=== PATIENT | female | born 1970 | race Caucasian/White ===

== ENCOUNTER → 2018-10-27 08:58 | Outpatient (CLI) | payer OTHER, SELFPAY ==
[2018-10-27 08:29] VITALS: BMI 44.2
[2018-10-27 12:49] LABS: Anion Gap 5 (5-15); BUN 15 mg/dL (7-18); BUN/Creat Ratio 21.2 RATIO (10-20); Calcium,Total 8.6 mg/dL (8.5-10.1); Chloride 105 mmol/L (98-107); Creatinine, Serum 0.71 mg/dL (0.55-1.02); EST Glomerular Filtration Rate 93 mL/min (>60); Est Glom Filt Rate - Afr Amer 112 mL/min (>60); Glucose 95 mg/dL (74-106); Potassium 4.2 mmol/L (3.5-5.1); Sodium Level 140 mmol/L (136-145); Thyroid Stim Hormone (TSH) 0.64 uIU/mL (0.358-3.74)
== END ==
PROVIDERS: PCP Family Medicine; Visit Provider Family Medicine
DX: I10 Essential (primary) hypertension (principal); E03.9 Hypothyroidism, unspecified
CPT/HCPCS: 36415; 80048; 84443

== ENCOUNTER → 2019-05-01 11:46 | Outpatient (CLI) | payer OTHER, SELFPAY ==
[2019-04-27 08:45] VITALS: BMI 44.2
--- NOTE | 2019-05-01 11:49 | RAD_ITS ---
STUDY: X-RAY - LEFT HAND REASON FOR EXAM: Female, 49 years old. Pain in first metacarpal. TECHNIQUE: 3 view(s) of the hand. COMPARISON: None. FINDINGS: Incompletely included in the [id number]-qc-[id number] radiocarpal articulation. Nonvisualized distal radioulnar joint. Limited visualization of the first carpal row otherwise normal visualized carpal bones. 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 Normal second through fifth carpometacarpal joints. Normal metacarpi. Normal metacarpophalangeal joint of the thumb. Normal interphalangeal joint of the thumb. Normal proximal and distal phalanges of the thumb. Normal metacarpophalangeal joints of the second through fifth fingers. Mild narrowing of the distal interphalangeal joints. Normal phalanges of the second through fifth fingers. The soft tissue structures are unremarkable. RAD/Hand Min 3 Views IMPRESSION: Possible early degenerative arthritis as described above. No acute fracture or subluxation Electronically Signed: Janeth Sanchez MD at 5:19 EST , Service support ,
== END ==
PROVIDERS: Family Provider Family Medicine; PCP Family Medicine; Referring Provider Family Medicine; Visit Provider Family Medicine
DX: M25.542 Pain in joints of left hand (principal)
CPT/HCPCS: 73130

== ENCOUNTER → 2019-11-08 09:11 | Outpatient (CLI) | payer OTHER, SELFPAY ==
[2019-11-08 08:45] VITALS: BMI 44.2
[2019-11-08 13:25] LABS: ALB/GLOB Ratio 0.9 RATIO (0.9-2.4); AST(SGOT) 22 U/L (15-37); Alanine Aminotransfer ALT/SGPT 32 U/L (13-56); Albumin, Serum 3.6 g/dL (3.2-5.0); Alkaline Phosphatase 70 U/L (45-117); Anion Gap 8 (5-15); BUN 13 mg/dL (7-18); BUN/Creat Ratio 16.8 RATIO (10-20); Calcium,Total 8.9 mg/dL (8.5-10.1); Chloride 106 mmol/L (98-107); Creatinine, Serum 0.77 mg/dL (0.55-1.02); EST Glomerular Filtration Rate 83 mL/min (>60); Est Glom Filt Rate - Afr Amer 101 mL/min (>60); Globulin 3.8 g/dL (2.2-4.2); Glucose 102 mg/dL (74-106); Potassium 3.9 mmol/L (3.5-5.1); Protein, Total 7.4 g/dL (6.4-8.2); Sodium Level 142 mmol/L (136-145); Thyroid Stim Hormone (TSH) 2.14 uIU/mL (0.358-3.74)
== END ==
PROVIDERS: PCP Family Medicine; Referring Provider Family Medicine; Visit Provider Family Medicine
DX: I10 Essential (primary) hypertension (principal); E03.9 Hypothyroidism, unspecified
CPT/HCPCS: 36415; 80053; 84443

== ENCOUNTER → 2020-11-12 09:05 | Outpatient (CLI) | payer OTHER, SELFPAY ==
[2020-11-12 08:41] VITALS: BMI 47.8
[2020-11-12 12:16] LABS: ALB/GLOB Ratio 0.9 RATIO (0.9-2.4); AST(SGOT) 16 U/L (15-37); Alanine Aminotransfer ALT/SGPT 26 U/L (13-56); Albumin, Serum 3.6 g/dL (3.2-5.0); Alkaline Phosphatase 67 U/L (45-117); Anion Gap 6 (5-15); BUN 16 mg/dL (7-18); BUN/Creat Ratio 19.7 RATIO (10-20); Calcium,Total 9.2 mg/dL (8.5-10.1); Chloride 107 mmol/L (98-107); Creatinine, Serum 0.81 mg/dL (0.55-1.02); EST Glomerular Filtration Rate 78 mL/min (>60); Est Glom Filt Rate - Afr Amer 95 mL/min (>60); Globulin 3.9 g/dL (2.2-4.2); Glucose 99 mg/dL (74-106); Potassium 4.2 mmol/L (3.5-5.1); Protein, Total 7.5 g/dL (6.4-8.2); Sodium Level 141 mmol/L (136-145); Thyroid Stim Hormone (TSH) 8.83 uIU/mL (0.358-3.74)
== END ==
PROVIDERS: PCP Family Medicine; Referring Provider Family Medicine; Visit Provider Family Medicine
DX: I10 Essential (primary) hypertension (principal); E03.9 Hypothyroidism, unspecified
CPT/HCPCS: 36415; 80053; 84443

== ENCOUNTER → 2021-02-14 09:01 | Outpatient (CLI) | payer BC, SELFPAY ==
--- NOTE | 2021-02-14 09:25 | BI_ITS ---
MAMMOGRAPHY - BILATERAL DIAGNOSTIC REASON FOR EXAM: Female, 50 years old. Bilateral breast lungs more prominent on the left side. PERTINENT HISTORY: Non-contributory. TECHNIQUE: Digital bilateral breast lanre (3D mammographic acquisition) in the CC and MLO projections. 2-D mediolateral oblique (MLO) and craniocaudad (CC) views of both breasts were obtained. CAD: Full Field Digital Mammography with Computer Added Detection was performed. COMPARISON: None. Baseline examination. FINDINGS: Breast Composition: The breasts are heterogeneously dense, which may obscure small masses. The palpable abnormality in the right breast corresponds to a 4 cm x 2.8 cm spiculated nodule in the inferior medial aspect of the breast. I also suspect a spiculated density in the retroareolar areolar region of the left breast in the mid section. There is also evidence of a 2.3 cm x 1 cm well-defined nodule in the anterior upper lateral aspect of the right breast. Correlation with ultrasound is recommended. No other significant abnormalities are identified. BI/DIAG MAMM W/CAD, BILAT IMPRESSION: I suspect a dominant spiculated nodule in the inferior medial aspect of the left breast corresponding to the palpable abnormality. I also suspect a central retroareolar spiculated mass in the left breast. Correlation with ultrasound is recommended. 2.3 cm x 1 cm nodule in the anterior upper lateral aspect of the right breast. Correlation with ultrasound is recommended as well. ASSESSMENT CATEGORY: BIRADS Category 0: Incomplete. Need additional imaging evaluation. A letter regarding these results will be sent to the patient by the facility within 30 days. Approximately 10% of breast cancers are not detected by mammography. A normal mammogram should not delay biopsy of a clinically suspicious abnormality. Electronically Signed: Jez Gutierrez MD at 10:26 EDT , Service support ,
--- NOTE | 2021-02-14 09:25 | US_ITS ---
STUDY: ULTRASOUND BREAST - RIGHT REASON FOR EXAM: Female, 50 years old. Abnormal screening mammogram. TECHNIQUE: Axial and longitudinal images of the RIGHT breast were performed with a high resolution ultrasound transducer. # OF IMAGES: [id number] COMPARISON: Comparison is made with prior mammogram done earlier in the day. FINDINGS: RIGHT Breast: The mammographic abnormality corresponds to a 2.5 cm x 2.5 cm x 2 cm heterogeneous solid nodule at the 11 o''clock position of the breast at 4 cm from nipple. Posterior acoustical shadowing is seen. Biopsy is recommended. IMPRESSION: 2.5 cm x 2.5 cm x 2 cm heterogeneous solid nodule at the 11 o''clock position of the breast 4 cm from nipple. Biopsy recommended. ASSESSMENT CATEGORY: BIRADS Category 4: Suspicious - Biopsy Should Be Considered. A letter regarding these results will be sent to the patient by the facility within 30 days. Electronically Signed: Jez Gutierrez MD at 12:29 EDT , Service support , STUDY: ULTRASOUND BREAST - LEFT REASON FOR EXAM: Female, 50 years old. Abnormal screening mammogram. TECHNIQUE: Axial and longitudinal images of the LEFT breast were performed with a high resolution ultrasound transducer. # OF IMAGES: [id number] COMPARISON: Comparison is made with prior mammogram done earlier today. FINDINGS: LEFT Breast: There is a 1.2 cm x 1.4 cm x 1.9 cm irregular hypoechoic nodule with posterior acoustical shadowing at the 6 o''clock position in the breast at 3 cm from nipple. Biopsy recommended. A similar appearing mass is seen at the 8 o''clock position of the breast of 4 cm from nipple measuring 2.2 cm x 3 cm x 1.6 cm. This is at the 8 o''clock position of the breast at 4 cm from the nipple. Posterior acoustical shadowing is seen. Biopsies recommended. Is also evidence of a 1.2 cm x 0.8 cm x 1 cm solid and cystic nodule at the 12 o''clock position breast at 3 cm from nipple. Biopsy recommended. US/Breast Limited Unilateral IMPRESSION: There are 3 suspicious nodules in the breast as described. Biopsy is recommended. ASSESSMENT CATEGORY: BIRADS Category 4: Suspicious - Biopsy Should Be Considered. A letter regarding these results will be sent to the patient by the facility within 30 days. Electronically Signed: Jez Gutierrez MD at 12:31 EDT , Service support ,
== END ==
PROVIDERS: PCP Family Medicine; Referring Provider Obstetrics & Gynecology; Visit Provider Obstetrics & Gynecology
DX: R92.8 Other abnormal and inconclusive findings on diagnostic imaging of breast (principal); N63.11 Unspecified lump in the right breast, upper outer quadrant; N63.25 Unspecified lump in the left breast, overlapping quadrants
CPT/HCPCS: 76642; 77062; 77066; G0279

== ENCOUNTER → 2021-02-19 14:03 | Outpatient (CLI) | payer BC, SELFPAY ==
--- NOTE | 2021-02-19 | BRBX_PTH ---
PATIENT: ABIGAIL FINCH LOC: [facility]#:[id number] AGE/SX: 55/F ROOM: RE02/19/[address]: Dr. Ino Barr MD : 1970 BED: DIS: SPEC #: [id number] RECD: 02/20/21 10:52 STATUS: SINDI MILANLor #: [id number] FANTASMA: 02/19/21 00:[address]: Ino Barr DEPT: SURGICAL PATHOLOGY RECD BY: Kwadwo Santoyo ENTERED: 02/20/21 10:53 SP TYPE: BREAST BX OTHR DR: Dr. Kwame Augustine DO Tissues: A - Left breast, NOS B - Left breast, NOS C - Left breast, NOS D - Right breast, NOS Procedures: Surgery Specimen Level IV HEADER OPERATION: Ultrasound-guided left and right breast biopsy PRE-OP DIAGNOSIS: Abnormal mammogram bilateral TISSUE SUBMITTED: A - Left breast 12 o?clock, B - Left breast 8 o?clock, C - Left breast 6 o?clock, D - Right breast 11 o?clock ISCHEMIC TIME: 1 minute FIXATION TIME: 31.5 hours MICROSCOPIC DIAGNOSIS A. Left breast at 12 o?clock, core biopsy: Collagenized tissue. No evidence of malignancy. B. Left breast at 8 o?clock, core biopsy: Invasive ductal carcinoma with the following characteristics: Maximal length ? 4.5 millimeters Nuclear grade ? 1 See comment. C. Left breast at 6 o?clock, core biopsy: Invasive ductal carcinoma with the following characteristics: Maximal length ? 5.5 millimeters Nuclear grade ? 1 See comment. D. Right breast at 11 o?clock, core biopsy: Focal intraductal hyperplasia without atypia. AM:marialuisa 02/21/2021 COMMENT B & C. Immunohistochemistry ([id number]) supports the above diagnosis. Case has been reviewed in consultation with Dr. Rodriguez who concurs with the above diagnosis. IDC:SJ MICROSCOPIC DESCRIPTION Slides are reviewed. GROSS DESCRIPTION A - Received in fixative is one container labeled with the patient's name and designated 12 o'clock left breast. The specimen consists of multiple irregular and elongated fragments of light arredondo soft tissue that in aggregate measure 1.2 x 0.5 x 0.1 cm. The specimen is totally submitted in one cassette. B - Received in fixative is one container labeled with the patient's name and designated 8 o'clock left breast. The specimen consists of multiple irregular and elongated fragments of light arredondo soft tissue that in aggregate measure 1.5 x 0.6 x 0.1 cm. The specimen is totally submitted in one cassette. C - Received in fixative is one container labeled with the patient's name and designated 6 o'clock left breast. The specimen consists of multiple irregular and elongated fragments of light arredondo soft tissue that in aggregate measure 1 x 0.5 x 0.1 cm. The specimen is totally submitted in one cassette. D - Received in fixative is one container labeled with the patient's name and designated 11 o'clock right breast. The specimen consists of multiple irregular and elongated fragments of light arredondo soft tissue that in aggregate measure 2 x 0.5 x 0.1 cm. The specimen is totally submitted in one cassette. / AM:marialuisa 02/20/21 TC:0 [facility]: [id number] x4 ADDENDUM ADDENDUM ADDENDUM ADDENDUM ADDENDUM ADDENDUM ADDENDUM ADDENDUM ADDENDUM ADDENDUM ADDENDUM ADDENDUM ADDENDUM ADDENDUM ADDENDUM ADDENDUM 03/26/2021 10:16 ADDENDUM 03/26/2021 10:16 ADDENDUM 03/26/2021 10:16 ADDENDUM 03/26/2021 10:16 ADDENDUM 03/26/2021 10:16 This addendum is added to incorporate an outside pathology consultation report. The case was examined at [facility] (#[id number]) and the following diagnosis was rendered. A. Breast, left 12 o?clock, biopsy: Collagenized fibrosis. Negative for malignancy. B. Breast, left 8 o?clock, core biopsy: Invasive mammary carcinoma with micropapillary features, provisional histologic grade 2. C. Breast, left 6 o?clock, core biopsy: Invasive mammary carcinoma with micropapillary features, provisional histologic grade 2. D. Breast, right 11 o?clock, core biopsy: Focal usual ductal hyperplasia Please see complete above mentioned consultation report in EMR
--- NOTE | 2021-02-19 | IMM_PTH ---
PATIENT: ABIGAIL FINCH LOC: U#:[id number] AGE/SX: 55/F ROOM: RE02/19/[address]: Dr. Ino Barr MD : 1970 BED: DIS: SPEC #: [id number] RECD: 02/21/21 14:53 STATUS: SINDI REQ #: [id number] FANTASMA: 02/19/21 00:[address]: Ino Barr DEPT: IMMUNOHISTOCHEMISTRY RECD BY: Alissa Herrera ENTERED: 02/21/21 14:57 SP TYPE: IMMUNO OTHR DR: Dr. Kwame Augustine, Tissues: B - Left breast, NOS C - Left breast, NOS Procedures: CALPONIN-1 (add) CK5-6 (add) CK8 (add) JONES-2 (add) E-CAD (add) HER2 ISAAC (add) KI-67 (add) P53 (add) PA (add) P40 (add) ER (initial) PHYSICIAN & [address] [address] SPECIMEN INFORMATION: Tissue Source: B ? Left breast 8 o?clock, C ? Left breast 6 o?clock Clinical Info: Abnormal mammogram bilateral Specimen Number: [id number] B & C CPT code: 91681 x2, 68798 x14, 17625 x6 METHODOLOGY: Deparaffinized sections of prefer/formalin-fixed tissue or PAP/DQ stained slides are incubated with monoclonal/polyclonal antibodies/oligonucleotide probes. Localization is made via biotin free immunoperoxidase method. Appropriate controls are performed and reacted as expected. Results on target cell population are indicated in the following table: RESULTS: ANTIBODY / CLONE RESULT Block B P53 (DO-7) positive, 4%, dim Ki-67 (30-9) positive, 15% CK8 (84usdlV01) positive CK5-6 (D5 & 1684) negative Calponin-1 (GZ830J) negative P40 (BC28) negative E-Cad (ECH-6) positive JONES-2 (SP21) positive MORPHOMETRIC ANALYSIS ER (clone 6F11) >95%, moderate to strong intensity PA (clone 16/1E2) >95%, moderate to strong intensity Her-2Neu (clone CB11) 0-1+ Block C P53 (DO-7) positive, 8%, dim Ki-67 (30-9) positive, 5% CK8 (96metsR21) positive CK5-6 (D5 & 1684) negative Calponin-1 (HL606R) negative P40 (BC28) positive E-Cad (ECH-6) positive JONES-2 (SP21) positive MORPHOMETRIC ANALYSIS ER (clone 6F11) >95%, moderate to strong intensity PA (clone 16/1E2) >95%, moderate to strong intensity Her-2Neu (clone CB11) 0-1+ The prognostic test for HER2 is performed on formalin-fixed paraffin embedded tissue. A 3+ (positive) staining pattern is defined as intense, homogeneous, complete, circumferential membranous staining in >10% of contiguous tumor cells. A similar weak (2+) staining pattern is interpreted as equivocal. VIRGIL follow-up testing is recommended for all equivocal cases. Positivity/negativity for ER/PA is reported if > or < 1% of the tumor cells are immuno- reactive, respectively. The ASCO/CAP criteria is used for scoring. Reference: Journal of Clinical Oncology, 2013; 31:2628-6992 & 2010; 16:7673-9535. Duration of fixation: 31.5 Hrs; Sample Adequate: Yes. These assays have not been validated on decalcified tissues. Results should be interpreted with caution given the likelihood of false negativity on decalcified specimens. These tests were developed and their performance characteristics determined by [facility]. They may not have been cleared or approved by the U.S. Food and Drug Administration. The FDA has determined that such clearance or approval is not necessary. The above immunohistochemical/dualISH markers are ordered and reviewed by the Pathologist. INTERPRETATION: B. Left breast at 8 o?clock, core biopsy: Invasive ductal carcinoma, nuclear grade 1. Positive for estrogen receptors (favorable prognostic indicator). Positive for progesterone receptors (favorable prognostic indicator). Negative for overexpression of [id number]. C: Left breast at 6 o?clock, core biopsy: Invasive ductal carcinoma, nuclear grade 1. Positive for estrogen receptors (favorable prognostic indicator). Positive for progesterone receptors (favorable prognostic indicator). Negative for overexpression of [id number]. AM:marialuisa 02/25/2021 Case has been reviewed in consultation with Dr. Rodriguez who concurs with the above diagnosis. IDC:SJ
--- NOTE | 2021-02-19 14:08 | US_ITS ---
ULTRASOUND GUIDED CORE BIOPSY REASON FOR EXAM: Female, 50 years old. Right breast mass. PERTINENT HISTORY: 2.5 cm x 2.5 cm x 2 cm heterogeneous solid nodule at 11 o''clock position of the breast at 4 cm from nipple. COMPARISON: Comparison is made with prior sonogram dated 02/14/2021. TECHNIQUE: (All elements of maximal sterile barrier technique followed, including US elements as applicable) Under direct sonographic guidance, the surgeon performed core biopsies of the suspicious lesion at the 11 o''clock position of the breast of 4 cm from nipple. IMPRESSION: Ultrasound guided core biopsy of a mass in the RIGHT breast at the 11 o''clock position of the breast at 4 cm from the nipple without complication. Electronically Signed: Jez Gutierrez MD at 9:11 EDT , Service support , ULTRASOUND GUIDED CORE BIOPSY REASON FOR EXAM: Female, 50 years old. Breast mass PERTINENT HISTORY: 3 suspicious lesions in the left breast. COMPARISON: None. TECHNIQUE: (All elements of maximal sterile barrier technique followed, including US elements as applicable) Under direct sonographic guidance, the surgeon performed an ultrasound-guided core biopsies of the lesions at the 6 o''clock, 8 o''clock and 12 o''clock radiant of the left breast. US/US Breast Biopsy 1st Lesion IMPRESSION: Ultrasound guided core biopsy of a mass in the LEFT breast at the 6 o''clock, 8 o''clock and 12 o''clock radients without complication. Electronically Signed: Jez Gutierrez MD at 9:12 EDT , Service support ,
--- NOTE | 2021-02-19 15:34 | PCM.OPRPT ---
Problems Associated Problem List Diagnoses (1) Masses of both breasts: Report of Operation Date of Procedure: 02/19/21 Pre-Operative Diagnosis: Bilateral breast masses Post-Operative Diagnosis: Same Surgery/Procedure Performed:: Ultrasound-guided core needle biopsies of for breast masses, one on the right and 3 on the left Specimen's removed: Biopsy of multiple breast masses Description of Procedure: Patient was placed on the ultrasound table and the masses of the left breast were localized with ultrasound and marked. An area central to all 3 locations was chosen and prepped and injected with local anesthetic. A small sharron was made with a scalpel. Under ultrasound guidance each of these masses was biopsied separately and each of these masses was marked using titanium clips of different shape. Patient tolerated the procedure well. The incision was closed with a Steri-Strip and bandage. Next in the right breast the mass was localized and medial to this a small area of skin was prepped with ChloraPrep and injected with local anesthetic. A small incision was made. Using a 14-gauge core biopsy needle this mass was biopsied several times and a clip was placed into it. Steri-Strip and bandage was placed over this incision. Patient tolerated this procedure well.
== END ==
PROVIDERS: PCP Family Medicine; Referring Provider Surgery; Visit Provider Surgery
DX: R92.8 Other abnormal and inconclusive findings on diagnostic imaging of breast (principal); N63.10 Unspecified lump in the right breast, unspecified quadrant; N63.20 Unspecified lump in the left breast, unspecified quadrant
CPT/HCPCS: 19083; 19084; 88305; 88341; 88342

== ENCOUNTER → 2021-03-04 08:01 | Outpatient (CLI) | payer BC, SELFPAY ==
--- NOTE | 2021-03-04 08:02 | MRI_ITS ---
STUDY: BILATERAL BREAST MR WITHOUT AND WITH CONTRAST REASON FOR EXAM: Female, 51 years old. Bilateral positive breast biopsies TECHNIQUE: Multi-sequence multi-echo imaging of both breasts was performed with a dedicated breast coil. T1-weighted and T2-weighted images were performed before the administration of contrast. T1-weighted images were also performed after the administration of 24 cc of Dotarem contrast intravenously without complications. COMPARISON: Bilateral mammograms dated 02/14/2021, right and left breast ultrasounds dated 02/14/2021 and bilateral interventional ultrasound-guided biopsy images dated 02/19/2021. FINDINGS: RIGHT BREAST: The breast tissue is heterogeneously dense with minimal background enhancement. Tissue clip marker artifact in area of prior biopsy. There are no abnormal enhancing masses or areas of non-mass enhancement in the right breast. LEFT BREAST: The breast tissue is heterogeneously dense with minimal background enhancement. Extensive area of non-mass enhancement involving the lower inner and lower outer quadrants of the left breast measuring approximately 5.9 cm x 4.2 cm x 4.4 cm. Tissue clip marker artifact noted. Shotty lymph nodes in both axilla, left greater than right are noted. None of these lymph nodes look suspicious by MRI criteria. There is no abnormality in the visualized regions of the chest or liver. MRI/Breast Bilateral W/O and W IMPRESSION: Extensive area of non-mass enhancement involving the lower inner and lower outer quadrants of the left breast as described. Tissue clip marker artifact in the right breast with no enhancing masses. Shotty adenopathy bilaterally with no suspicious axillary lymph nodes. CATEGORY: BIRADS Category 6: Known Biopsy-Proven Malignancy - Appropriate Action Should Be Taken. A letter regarding these results will be sent to the patient by the facility within 30 days. Electronically Signed: Leroy Thomas MD at 9:31 EDT , Service support ,
[2021-03-04 08:35] LABS: CREATININE FINGERSTICK 0.8 mg/dL (0.55-1.02); EGFR FINGERSTICK > 60.0000 mL/min (>60)
== END ==
PROVIDERS: PCP Family Medicine; Referring Provider Surgery; Visit Provider Surgery
DX: N63.10 Unspecified lump in the right breast, unspecified quadrant (principal); N63.20 Unspecified lump in the left breast, unspecified quadrant; Z87.898 Personal history of other specified conditions
CPT/HCPCS: 77049; A9575; A4216; C8908

== ENCOUNTER 2021-07-07 17:23 | Outpatient (CLI) | payer BC, SELFPAY ==
--- NOTE | 2021-07-07 17:30 | CT_ITS ---
HISTORY: Staging, has stage III breast cancer, history of double mastectomy 04/11/21 TECHNIQUE: Helically acquired images were obtained of the chest, abdomen, and pelvis following IV contrast. Sagittal and coronal reformats reviewed. A radiation dose optimization technique was used for this scan. IV Contrast dosage and agent: 100mL Isovue-300 Oral contrast: Yes COMPARISON: None FINDINGS: ----Chest: HEART AND PERICARDIUM: Heart size within normal limits. No significant pericardial effusion. VESSELS: No thoracic aortic aneurysm or dissection. Great vessels are patent. There is no central pulmonary embolism although this study was not performed with the pulmonary embolism protocol. MEDIASTINUM AND MONIQUE: No pathologically enlarged mediastinal or hilar lymph nodes. Esophagus is unremarkable. OTHER SOFT TISSUES: Left axillary surgical clips and scarring compatible with previous lymph node dissection. Bilateral anterior chest wall scarring and surgical clips status post bilateral mastectomy. Low-attenuation loculated fluid collection within deep right anterior chest wall measures 1 cm thickness and 7 cm in length/diameter, with surrounding scarring. LUNGS AND LARGE AIRWAYS: No pulmonary edema, mass or consolidation. Punctate 3 mm subpleural nodule lateral left midlung. No pneumothorax. PLEURA: No pleural effusion or pleural thickening. BONES: Healed fracture right seventh rib. No acute fracture or suspicious osseous lesion. ----Abdomen/Pelvis: LIVER: Mild fatty infiltration of liver with no concerning lesion. GALLBLADDER AND BILIARY TREE: No calcified gallstones. There is no gallbladder distension or wall edema. No intra- or extrahepatic biliary ductal dilation. KIDNEYS AND URETERS: Normal renal size and position. No concerning lesion. No perinephric inflammation or hydronephrosis. ADRENAL GLANDS: Non-enlarged. SPLEEN: Normal size without discrete lesion. PANCREAS: No discrete lesion or peripancreatic inflammation. BOWEL: No evidence of acute appendicitis. No abnormal stomach or bowel distension. No focal inflammatory change observed. LYMPH NODES: No enlarged mesenteric or retroperitoneal lymph nodes. PERITONEUM: No ascites or free air. No other fluid collection. VESSELS: Mild atherosclerotic calcifications. URINARY BLADDER: Unremarkable. REPRODUCTIVE ORGANS: No pelvic masses. ABDOMINAL WALL: Small umbilical hernia containing slightly edematous omental fat. No bowel herniation. BONES: Intact with no suspicious osseous lesion. CT/CT Chest, Abd, Pel w/Contrast IMPRESSION: 1. Status post bilateral mastectomy with chronic appearing loculated fluid collection within right anterior chest wall likely chronic postoperative seroma. 2. No evidence of metastatic disease or residual malignancy. 3. Small umbilical hernia containing edematous omental fat, possibly symptomatic omental incarceration. Correlate clinically. 4. Tiny 3 mm subpleural nodule within left midlung. Too small to characterize at this time. Follow-up as clinically warranted. 5. Hepatic steatosis and other nonurgent findings within body of report. Individualized dose optimization techniques were used for this CT. at 0303 Reported and signed by: Abhinav Ellison MD Electronically Signed: Abhinav Ellison MD at 3:02 EST ,
[2021-07-07 17:51] LABS: CREATININE FINGERSTICK 1.4 mg/dL (0.55-1.02)
== END 2021-07-07 23:59 | disposition short-term general hospital (02) ==
PROVIDERS: PCP Family Medicine; Visit Provider Student in an Organized Health Care Education/Training Program
DX: C50.912 Malignant neoplasm of unspecified site of left female breast (principal)
CPT/HCPCS: 71260; 74177; Q9967

== ENCOUNTER 2021-07-14 07:52 | Outpatient (CLI) | payer BC, SELFPAY ==
--- NOTE | 2021-07-14 07:54 | NM_ITS ---
CLINICAL: 51-year-old female with reported history of carcinoma of the breast. WHOLE BODY 99m Tc MDP RADIONUCLIDE BONE SCINTIGRAPHY COMPARISON: CT of the chest, abdomen and pelvis reports 07/07/2021 FINDINGS: Following the intravenous administration of 22.0 mCi of 99m Tc MDP, whole body bone images reveal: 1. Increased radiopharmaceutical concentration is identified in the mid cervical spine posteriorly on the left, acromioclavicular and sternoclavicular compartments of both shoulders, glenohumeral compartment of the right shoulder, visualized left wrist, both hands, patellofemoral and medial tibial compartments of both knees, right and left midfoot, ankles bilaterally. 2. The remaining skeletal structures are scintigraphically unremarkable with normal-appearing renal images and urinary bladder activity identified. NM/Bone Scan Whole Body IMPRESSION: 1. The increase in radiopharmaceutical concentration expressed in the cervical spine, bilateral shoulders, left wrist, right and left hands, knees bilaterally, right-left midfoot and both ankle articulations is most consistent with degenerative arthritis. 2. There is no definitive scintigraphic evidence of diffuse axial skeletal metastatic disease on the current examination. Electronically Signed: Mariano Yancey DO at 22:01 EST ,
== END 2021-07-14 23:59 | disposition home or self-care (01) ==
LOC: NM 07:53
PROVIDERS: PCP Family Medicine; Referring Provider Student in an Organized Health Care Education/Training Program; Visit Provider Student in an Organized Health Care Education/Training Program
DX: C50.912 Malignant neoplasm of unspecified site of left female breast (principal)
CPT/HCPCS: 78306; A9503

== ENCOUNTER → 2022-03-18 | Outpatient (CLI) | payer BC, SELFPAY ==
[2022-03-18 12:20] LABS: Erythrocyte Sedimentation Rate 26 mm/hr (0-30)
[2022-03-18 12:30] LABS: Rheumatoid Factor < 10.0 IU/mL (<15)
== END | disposition home or self-care (01) ==
LOC: BIMLAB 09:28
PROVIDERS: PCP Family Medicine; Referring Provider Family Medicine; Visit Provider Family Medicine
DX: M25.542 Pain in joints of left hand (principal)
CPT/HCPCS: 36415; 85652; 86431

== ENCOUNTER 2022-04-21 08:35 | Day surgery (SDC) | payer BC, SELFPAY ==
[2022-04-21] VITALS (7 sets, daily range): BP systolic 126–168; BP diastolic 10–102; PULSE 66–75; RESP 16–18; TEMP 36.7–37.4; O2SAT 98–100; BMI 43.0
[2022-04-21] MEDS: Lactated Ringers 1,000 ML 15 ML IV (09:24)
--- NOTE | 2022-04-21 09:41 | PCM.HP.STD ---
[facility] - General General Date of Service: 04/21/22 Chief Complaint: Screening for intestinal cancer. HPI Narrative ABIGAIL FINCH, is a 52 F who presents for screening colonoscopy today. She presents via open access. She has not had a previous colonoscopy. She denies cardiac or pulmonary disease. No diabetes. She denies history of DVT. No change in bowel habits. She has had a bilateral mastectomy. Her mother's had a history of colon polyps. Pertinent clinical findings is a BMI of 43 [facility] Medical History (Updated 04/21/22 @ 09:[address] Brennan Mckeon MD) Anxiety Arthritis Breast cancer History of abnormal mammogram history of novasure Hypertension Hypothyroid Injury of head and neck Marijuana smoker Migraine headache OCD (obsessive compulsive disorder) Sleep disorder Wears glasses Home Medications levothyroxine 150 mcg tablet (Synthroid) 150 mcg PO QDAY #90 tabs 06/17/21 [Rx Last Taken Unknown] Kenalog 40 mg/mL suspension for injection (triamcinolone acetonide) 40 mg intra-articular ONCE #1 mL 03/10/22 [Clinic Last Taken Unknown] gabapentin 300 mg capsule 600 mg PO TID 03/10/22 [History Last Taken Unknown] alprazolam 0.25 mg tablet 0.25 mg PO TID PRN TIC/ OCD 04/17/22 [History Last Taken Unknown] hydrochlorothiazide 25 mg tablet 25 mg PO QAM HTN 04/17/22 [History Last Taken Unknown] lisinopril 40 mg tablet 40 mg PO DAILY HTN 04/17/22 [History Last Taken 04/21/22 05:45] tamoxifen 20 mg tablet 20 mg PO QODAY BREAT CA 04/17/22 [History Last Taken Unknown] Allergy/AdvReac Type Severity Reaction Status Date / Time Penicillins Allergy Severe Hives Verified 04/21/22 09:08 erythromycin base Allergy Unknown Unknown Verified 04/21/22 09:08 latex Allergy Unknown Unknown Verified 04/21/22 09:08 morphine Allergy Unknown Unknown Verified 04/21/22 09:08 adhesive tape Allergy Rash Verified 04/21/22 09:08 Family History (Updated 03/25/22 @ 09:52 by Natasha Amor) Mother Hypertension Diabetes Colon polyps Grandmother Diabetes Surgical History (Updated 04/17/22 @ 10:55 by Danielle Richter) H/O umbilical hernia repair History of bilateral breast biopsy (~02/2021) History of breast surgery History of mastectomy History of oral surgery History of surgery of head History of tubal ligation Social History Smoking Status: Former smoker how long ago did patient quit smokin alcohol intake: current alcohol intake frequency: a few times a month substance use type: does not use what type of physical activity do you participate in: none ROS Constitutional Constitutional: Reports systems reviewed and no addt'l complaints, except as documented Cardiovascular Cardiovascular: Denies chest pain Respiratory/Chest Respiratory/Chest: Denies shortness of breath at rest Gastrointestinal Gastrointestinal: Denies abdominal pain, change in bowel habits, hematochezia or melena Vital Signs Vital Signs Vital Signs: 04/21/22 09:09 04/21/22 09:13 Temperature 98.0 F Temperature Source Temporal Pulse Rate 74 Respiratory Rate 18 Respiratory Pattern Normal Blood Pressure 126/90 H Blood Pressure Mean 102 Blood Pressure Source Monitor Blood Pressure Position Semi-Fowlers Blood Pressure Location Right Arm Pulse Ox 100 Oxygen Delivery Method Room Air Weight Weight: 250 lb 6.4 oz Body Mass Index (BMI) 43.0 Physical Exam Const alert, oriented x3 and no apparent distress General Appearance: cooperative and comfortable Eyes General Eye: normal appearance of both eyes Neck General: normal visual inspection Chest inspection of chest normal Resp Effort and Inspection: able to speak in complete sentences and symmetric chest movement Auscultation: clear to auscultation bilaterally Cardio regular rate and regular rhythm GI soft to palpation, non-tender and non-distended Extremity no calf tenderness Neuro oriented x3 Psych thought process normal Assessment & Plan Assessment/Plan (1) Screening for intestinal cancer: PLAN: Plan to proceed with a screening colonoscopy with possible biopsy or polypectomy as indicated. The patient's not had a previous exam. She has had a history of breast cancer in her mother's had colon polyps. She is aware of the technique, benefit, risk, alternatives. We will proceed as noted. She presents via open access. Brennan Mckeon M.D., F.A.C.S.
--- NOTE | 2022-04-21 09:45 | COLBX_PTH ---
PATIENT: ABIGAIL FINCH LOC: EN U#:[id number] AGE/SX: 52/F ROOM: RE04/21/[address]: Dr. Brennan Mckeon MD : 1970 BED: DIS: 04/21/2022 SPEC #: [id number] RECD: 04/21/22 14:30 STATUS: SINDI MEGHNA #: [id number] FANTASMA: 04/21/22 09:[address]: Brennan Mckeon DEPT: SURGICAL PATHOLOGY RECD BY: Francheska Horn ENTERED: 04/22/22 11:39 SP TYPE: COLON BX LIANG DR: Dr. Kwame Augustine, DO Tissues: A - Sigmoid colon biopsy B - Sigmoid colon biopsy C - Sigmoid colon biopsy Procedures: Surgery Specimen Level IV HEADER OPERATION: Colonoscopy, open access (MAC) PRE-OP DIAGNOSIS: Screening colonoscopy TISSUE SUBMITTED: A. Proximal sigmoid polyp biopsy, B. Mid sigmoid polyp biopsy, C. New mucosal margin mid sigmoid biopsy MICROSCOPIC DIAGNOSIS A. Proximal sigmoid polyp biopsy: Fragments of hyperplastic polyp. B. Mid sigmoid polyp biopsy: Tubular adenoma. C. New mucosal margin mid sigmoid biopsy: Tubular adenoma. /SJ 04/23/22 MICROSCOPIC DESCRIPTION Slides are reviewed. GROSS DESCRIPTION A. Received is one container labeled with the patient name and designated proximal sigmoid?. The specimen consists of multiple irregular fragments of light arredondo soft tissue that in aggregate measure 1.5 x 0.5 x 0.1 cm. The specimen is totally submitted in one cassette. B. Received is one container labeled with the patient name and designated mid sigmoid. a pink-red polyp measuring 1.2 x 1 x 1 cm. The apparent base is inked. The polyp is serially sectioned and submitted entirely in one cassette. C. Received is one container labeled with the patient name and designated new mucosal margin mid sigmoid. a pink-red polyp measuring 0.5 x 0.5 x 0.4 cm. The apparent base is inked. The polyp is bisected and submitted entirely in one cassette. /MICHAEL:jimbo 04/22/2022 TC:1 CPT: 72002 x3
--- NOTE | 2022-04-21 10:17 | OP.CCLET_ITS ---
04/21/2022 Kwame Augustine Re : Colonoscopy procedure for Shira Jeffery Dear Dr. Augustine This procedure was performed on Thursday, April 21, 2022. My impressions and recommendations are as follows: Impressions : - Non-thrombosed external hemorrhoids, non-thrombosed internal hemorrhoids and internal hemorrhoids that prolapse with straining, but spontaneously regress to the resting position (Grade II) found on digital rectal exam. - One 9 mm polyp in the proximal sigmoid colon, removed with a cold biopsy forceps. Resected and retrieved. - One 14 mm polyp in the distal sigmoid colon, removed with a hot snare. Resected and retrieved. The stalk was taken in an additional segment. The additional segment was sent for margins. - Diverticulosis in the sigmoid colon. Recommendations : - Discharge patient to home. - Resume previous diet. - Continue present medications. - Repeat colonoscopy in 5 years for surveillance. This recommendation is pending pathology - Telephone my office for pathology results in 1 week. My findings are described in the full procedure note, which is enclosed. If I can be of further assistance, please feel free to contact me at Doctor phone number(s): Work: . Sincerely, Brnenan Mckeon MD 04/21/2022 10:16:38 AM This report has been signed electronically.
--- NOTE | 2022-04-21 10:17 | OP.COLON_ITS ---
Patient Name: Shira Jeffery Procedure Date: 04/21/2022 9:46 AM Date of : 1970 Age: 52 Procedure: Colonoscopy Indications: Screening for colorectal malignant neoplasm Providers: Brennan Mckeon MD Medicines: See the Anesthesia note for documentation of the administered medications Patient Profile: Last Colonoscopy: none. The patient's first colonoscopy is today. Complications: No immediate complications. Procedure: Pre-Anesthesia Assessment: - Prior to the procedure, a History and Physical was performed, and patient medications and allergies were reviewed. The patient's tolerance of previous anesthesia was also reviewed. The risks and benefits of the procedure and the sedation options and risks were discussed with the patient. All questions were answered, and informed consent was obtained. Prior Anticoagulants: The patient has taken no previous anticoagulant or antiplatelet agents. ASA Grade Assessment: II - A patient with mild systemic disease. After reviewing the risks and benefits, the patient was deemed in satisfactory condition to undergo the procedure. After I obtained informed consent, the scope was passed under direct vision. Throughout the procedure, the patient's blood pressure, pulse, and oxygen saturations were monitored continuously. The adult colonoscope was introduced through the anus and advanced to the cecum, identified by appendiceal orifice and ileocecal valve. The colonoscopy was performed without difficulty. The patient tolerated the procedure well. The quality of the bowel preparation was good. The ileocecal valve and the appendiceal orifice were photographed. Scope In: 9:53:11 AM Scope Withdrawal Time 0 hours 14 minutes 59 seconds Scope Out: 10:11:35 AM Total Procedure Duration Time 0 hours 18 minutes 24 seconds Findings: The digital rectal exam findings include non-thrombosed external hemorrhoids, non-thrombosed internal hemorrhoids and internal hemorrhoids that prolapse with straining, but spontaneously regress to the resting position (Grade II). A 9 mm polyp was found in the proximal sigmoid colon. The polyp was sessile. The polyp was removed with a cold biopsy forceps. Resection and retrieval were complete. A 14 mm polyp was found in the distal sigmoid colon. The polyp was pedunculated. The polyp was removed with a hot snare. Resection and retrieval were complete. A few diverticula were found in the sigmoid colon. Impression: - Non-thrombosed external hemorrhoids, non-thrombosed internal hemorrhoids and internal hemorrhoids that prolapse with straining, but spontaneously regress to the resting position (Grade II) found on digital rectal exam. - One 9 mm polyp in the proximal sigmoid colon, removed with a cold biopsy forceps. Resected and retrieved. - One 14 mm polyp in the distal sigmoid colon, removed with a hot snare. Resected and retrieved. The stalk was taken in an additional segment. The additional segment was sent for margins. - Diverticulosis in the sigmoid colon. Recommendation: - Discharge patient to home. - Resume previous diet. - Continue present medications. - Repeat colonoscopy in 5 years for surveillance. This recommendation is pending pathology - Telephone my office for pathology results in 1 week. Procedure Code(s): --- Professional --- 76982, Colonoscopy, flexible; with removal of tumor(s), polyp(s), or other lesion(s) by snare technique 40851, 59, Colonoscopy, flexible; with biopsy, single or multiple Diagnosis Code(s): --- Professional --- Z12.11, Encounter for screening for malignant neoplasm of colon K64.1, Second degree hemorrhoids K64.4, Residual hemorrhoidal skin tags D12.5, Benign neoplasm of sigmoid colon K57.30, Diverticulosis of large intestine without perforation or abscess without bleeding CPT copyright 2017 [employer]. All rights reserved. The codes documented in this report are preliminary and upon casino accountant review may be revised to meet current compliance requirements. Brennan Mckeon MD 04/21/2022 10:16:38 AM This report has been signed electronically. Number of Addenda: 0 Note Initiated On: 04/21/2022 9:46 AM
== END 2022-04-21 11:37 | disposition home or self-care (01) ==
LOC: EN 08:39 → AC 08:39
PROVIDERS: PCP Family Medicine; Referring Provider Family Medicine; Visit Provider Surgery
PROC: 0DJD8ZZ Inspection of Lower Intestinal Tract, Via Natural or Artificial Opening Endoscopic (ICD-10-PCS; CPT 45378; principal; 2022-04-21 09:40)
DX: Z12.11 Encounter for screening for malignant neoplasm of colon (principal); D12.5 Benign neoplasm of sigmoid colon; K57.30 Diverticulosis of large intestine without perforation or abscess without bleeding; K64.1 Second degree hemorrhoids; K64.4 Residual hemorrhoidal skin tags; I10 Essential (primary) hypertension; E03.9 Hypothyroidism, unspecified; Z79.890 Hormone replacement therapy; Z79.899 Other long term (current) drug therapy; Z87.891 Personal history of nicotine dependence; Z90.13 Acquired absence of bilateral breasts and nipples
CPT/HCPCS: 45380; 45385; 88305; J7120; J2405

== ENCOUNTER → 2023-07-26 | Outpatient (CLI) | payer BC, SELFPAY ==
--- OUTSIDE RECORDS SUMMARY | 2023-07-26 18:45 | XMS RPT_ITS | CCD ---
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 Anastrozole. Patient self discontinued after 3 months and did not start letrozole as recommended. 2) Tamoxifen. Began 04/09/2022. Stopped about a month later. 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 HPI: The patient is a 52-year-old female with a past medical history significant for hypothyroidismand HTN. Was seen by Dr. Momo burks at [facility] 02/18/2021 for complaint of bilateral breast masses. Mammogram previously performed on 02/14/2021 demonstrated that the palpable abnormality in the left breast corresponded to a 4 x 2.8 cm spiculated nodule in the inferior medial aspect of the breast. There was also evidence of a spiculated density in the retroareolar region of the left breast in the m idsection as well as a 2.3 x 1 cm well-defined nodule in the anterior upper lateral aspect of the right breast. Ultrasound performed the same day demonstrated a 2.5 x 2.5 x 2 cm heterogeneous solid nodule at the11 o'clock position in the right breast 4 cm from the nipple. Biopsy was recommended. In the left breast there was a 1.2 x 1.4 x 1.9 cm irregular hypoechoic nodule with posterior acoustical shadowing at the 6 o'clock position in the breast 3 cm from the nipple. Biopsy was recommended.There was a similar-appearing mass at the 8 o'clock position of the breast 4 cm from the nipple measuring 2.2 x 3 x 1.6 cm this was at the 8 o'clock position of the breast 4 cm from the nipple. Posterior acoustic shadowing was also observed. Biopsies were recommended. Finally there was evidence of a 1.2 x 0.8 x 1 cm solid and cystic nodule at the 12 o'clock position in the breast 3 cm from the nipple. Biopsy was recommended. Patient underwent an ultrasound-guided biopsy of a left breast mass at the 6:00, 8:00 and 12:00 positions without complication on 02/19/2021. Pathology: Left breast 12:00 core biopsy revealed collagenized tissue with no evidence of malignancy. Left breast biopsy at 8 o'clock position demonstrated invasive ductal carcinoma with the following characteristics nuclear grade 1. Left breast biopsy 6 o'clock position demonstrated invasive ductal carcinoma with the following characteristics nuclear grade 1. Right breast biopsy 11:00 core biopsy showed focal intraductal hyperplasia without atypia. Both invasive malignancies were ER/MO positive (greater than 95%, moderate to strong intensity for both tumors) both tumors were 0-1+ HER-2 on IHC. MRI Breasts 03/04/2021: The left breast was noted to be heterogeneously dense with minimal background enhancement. There was an extensive area of non-mass enhancement involving the lower inner and lower outer quadrants of the left breast measuring approximately 5.9 x 4.2 x 4.4 cm. Tissue clip marker artifact was noted. There were shotty lymph nodes in both axillae, left greater than right noted. None these lymph nodes were suspicious by MRI criteria. The right breast tissue was heterogeneously dense with minimal background enhancement. Tissue clip marker artifact was observed from prior biopsy. No abnormal enhancingmasses or areas of non-mass enhancement were observed in the right breast. Patient was then referred to [facility]. She underwent a right breast core needle biopsy of the 11 o'clock position 4 cm from the nipple. Tissue demonstrated benign breast parenchyma with dense stromal fibrosis. Genetic testing for MAKAYLA, BRCA1, BRCA2, CDH 1, CHEK 2, PALB 2, PTEN and Tp53 were negative. Patient underwent a left skin sparing mastectomy, left sentinel lymph node biopsy followed by left axillary dissection along with a right prophylactic skin sparing mastectomy and immediate tissue service developer placement, muscle graft harvest x2 and nerve repair x2 on 04/11/2021. Pathology: A. Left sentinel lymph node, excision - Positive for metastatic carcinoma (0/1). B. Breast, left, mastectomy - Invasive moderately differentiated micropapillary carcinoma. Surgicalmargins negative for malignancy. Fibrocystic changes. C. Breast, right, mastectomy - Benign breast tissues with fibrocystic changes and intraductal papilloma. D. Lymph nodes (14), left axilla, excision - Negative for malignancy (0/14). Single tumor. 8.5 cm. Single focus of disease. Margins uninvolved by invasive carcinoma. Closest was the inferior margin at 7 mm. One sentinel lymph node contained an 8 mm metastatic deposit. Extranodal extension was not observed. 14 additional lymph nodes were retrieved and negative. pT3 pN1a Expanders removed 05/05/2021. Had endometrial ablation 2006. Hot flashes about 3 years ago. Prior adjuvant therapy: 1) Anastrozole. Patient self discontinued after 3 months and did not start letrozole as recommended. 2) Tamoxifen. Began 04/09/2022. Stopped about a month later. Current adjuvant therapy: None. Presents for ongoing oncologic management. Interim history: My nurse and medical student were was with me during the entire encounter today. Was started on iron supplement by Dr. Jeffrey. Gabapentin for incisional pain. Occasional pain in central chest. No triggering factors, but may be related to using her arms--running the vacuum or walking the dog. Not sure if it's occurred at rest. No other symptoms to suggest cardiac cause. She still having some numbness of the medial left upper arm. Numbness extends into the left axilla.No symptoms of lymphedema. PMH, medications and allergies personally reviewed by me today. Any changes documented in appropriate section. PHYSICAL EXAM: Vitals: Blood pressure 133/85, pulse 77, temperature 36.4 C (97.5 F), weight 125.2 kg (276 lb), last menstrual period 05/11/2007, SpO2 97 %. Well-appearing and in no acute distress. EYES: Sclerae are anicteric bilaterally. LYMPHATIC: There is no palpable cervical, supraclavicular or axillary adenopathy. RESPIRATORY: Inspiratory breath sounds are of normal intensity in all meyer. No rales, wheezes or rhonchi. CARDIOVASCULAR: Rhythm is regular. BREAST: Nurse chaperoned. Bilateral mastectomy sites are well-healed. There is no firm mass or nodule to suggest chest wall recurrence. No sternum tenderness. Tender lateral upper ribs near axilla. ABDOMEN: The abdomen is nondistended. Extremities: No swelling or edema. SKIN: No jaundice or rash. 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 -Declined adjuvant chemotherapy. -Patient was seen by two radiation oncologists who recommended adjuvant radiation. She declined. -Ki67 was performed on 2 of the core biopsies from the breast tumor, the first from the 8 o'clock position yielded a Ki67 of 15% and the second from the 6:00 core biopsy yielded Ki67 5%. -Tried anastrozole for 3 months--stopped due to side effects--didn't try letrozole as prescribed. -Previously used the [place] predict tool to help illustrate the potential benefit of adjuvant endocrinetherapy. -She had been tolerating tamoxifen well initially the first month but stopped shortly thereafter and unfortunately did not let us know. -She again declines hormonal therapy. -Discussed CTs to evaluate chest pain and as surveillance given high risk situation. PET if indicated based on CT results. Plan: -CT C/A/P with OV following. Portions of this documentation were copied and pasted from previous office visit notes in order to provide a cohesive continuity of the history. The note has been reviewed and edited and updated as necessary. I spent a total of 25 minutes on the date of the service which included preparing to see the patient, [id number] patient care, completing clinical documentation, obtaining and/or reviewing separately obtained history, performing a medically appropriate examination, counseling and educating the pat ient/family/caregiver, ordering medications, tests, or procedures, and communicating results to thepatient/family/caregiver. Agusto De Leon DO [facility] NoteHNO ID: [id number] Author: Leela No PT Service: ? Author Type: Physical Therapist Type: Progress Notes Filed: 12/14/2022 2:19 PM Note Text: 12/14/2022 [facility] PHYSICAL THERAPY DISCONTINUANCE OF CARE Plan of Care Period: Start of Care Date: 10/29/22 Last Visit Date: 10/29/2022 Therapy Program: Patient did not return for follow up care as planned. Please refer to last visit note for interventions provided for this episode of care. Assessment: Unable to formally assess goal achievement. Reason for Discontinuation of Care: Patient has not returned to therapy or scheduled additional follow-up appointments. Leela No [facility]07-04-2023 Evaluation note* Diagnosis Malignant neoplasm of overlapping sites of left breast in female, estrogen receptor positive (HCC)- Primary 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 from neoplasm of breast determined by histopathologic examination (pN1a) (HCC) Nerve pain Neuralgia, neuritis, and radiculitis, unspecified History of bilateral mastectomy Acquired absence of breast and nipple documented in this encounter [facility]06-08-2023 NoteHNO ID: [id number] Author: Agusto De Leon, DO Service: ? 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 HPI: The patient is a 52-year-old female with a past medical history significant for hypothyroidism and HTN. Was seen by Dr. Momo burks at [facility] 02/18/2021 for complaint of bilateral breast masses. Mammogram previously performed on 02/14/2021 demonstrated that the palpable abnormality in the left breast corresponded to a 4 x 2.8 cm spiculated nodule in the inferior medial aspect of the breast. There was also evidence of a spiculated density in the retroareolar region of the left breast in the midsection as well as a 2.3 x 1 cm well-defined nodule in the anterior upper lateral aspect of the right breast. Ultrasound performed the same day demonstrated a 2.5 x 2.5 x 2 cm heterogeneous solid nodule at the 11 o'clock position in the right breast 4 cm from the nipple. Biopsy was recommended. In the left breast there was a 1.2 x 1.4 x 1.9 cm irregular hypoechoic nodule with posterior acoustical shadowing at the 6 o'clock position in the breast 3 cm from the nipple. Biopsy was recommended. There was a similar-appearing mass at the 8 o'clock position of the breast 4 cm from the nipple measuring 2.2 x 3 x 1.6 cm this was at the 8 o'clock position of the breast 4 cm from the nipple. Posterior acoustic shadowing was also observed. Biopsies were recommended. Finally there was evidence of a 1.2 x 0.8 x 1 cm solid and cystic nodule at the 12 o'clock position in the breast 3 cm from the nipple. Biopsy was recommended. Patient underwent an ultrasound-guided biopsy of a left breast mass at the 6:00, 8:00 and 12:00 positions without complication on 02/19/2021. Pathology: Left breast 12:00 core biopsy revealed collagenized tissue with no evidence of malignancy. Left breast biopsy at 8 o'clock position demonstrated invasive ductal carcinoma with the following characteristics nuclear grade 1. Left breast biopsy 6 o'clock position demonstrated invasive ductal carcinoma with the following characteristics nuclear grade 1. Right breast biopsy 11:00 core biopsy showed focal intraductal hyperplasia without atypia. Both invasive malignancies were ER/MO positive (greater than 95%, moderate to strong intensity for both tumors) both tumors were 0-1+ HER-2 on IHC. MRI Breasts 03/04/2021: The left breast was noted to be heterogeneously dense with minimal background enhancement. There was an extensive area of non-mass enhancement involving the lower inner and lower outer quadrants of the left breast measuring approximately 5.9 x 4.2 x 4.4 cm. Tissue clip marker artifact was noted. There were shotty lymph nodes in both axillae, left greater than right noted. None these lymph nodes were suspicious by MRI criteria. The right breast tissue was heterogeneously dense with minimal background enhancement. Tissue clip marker artifact was observed from prior biopsy. No abnormal enhancing masses or areas of non-mass enhancement were observed in the right breast. Patient was then referred to [facility]. She underwent a right breast core needle biopsy of the 11 o'clock position 4 cm from the nipple. Tissue demonstrated benign breast parenchyma with dense stromal fibrosis. Genetic testing for MAKAYLA, BRCA1, BRCA2, CDH 1, CHEK 2, PALB 2, PTEN and Tp53 were negative. Patient underwent a left skin sparing mastectomy, left sentinel lymph node biopsy followed by left axillary dissection along with a right prophylactic skin sparing mastectomy and immediate tissue service developer placement, muscle graft harvest x2 and nerve repair x2 on 04/11/2021. Pathology: A. Left sentinel lymph node, excision - Positive for metastatic carcinoma (0/1). B. Breast, left, mastectomy - Invasive moderately differentiated micropapillary carcinoma. Surgical margins negative for malignancy. Fibrocystic changes. C. Breast, right, mastectomy - Benign breast tissues with fibrocystic changes and intraductal papilloma. D. Lymph nodes (14), left axilla, excision - Negative for malignancy (0/14). Single tumor. 8.5 cm. Single focus of disease. Margins uninvolved by invasive carcinoma. Closest was the inferior margin at 7 mm. One sentinel lymph node contained an 8 mm metastatic deposit. Extranodal extension was not observed. 14 additional lymph nodes were retrieved and negative. pT3 pN1a Expanders removed 05/05/2021. Had endometrial ablation 2006. Hot flashes about 3 years ago. Prior adjuvant therapy: 1) Anastrozole. Patient self discontinued after 3 months and did not start letrozole as recommended. 2) Tamoxifen. Began 04/09/2022. Stopped about a month later. Current adjuvant therapy: None. (more content not included)...[facility]06-08-2023 NoteHNO ID: [id number] Author: Hayde Azul LPN Service: ? Author Type: LICENSED NURSE Type: Progress Notes Filed: 11/13/2022 6:17 PM Note Text: Est. Pt. Discuss recent labs, 6 month f/u Only took the Tamoxifen for 1 month, couldn't stand the side effects. 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 HPI: The patient is a 52-year-old female with a past medical history significant for hypothyroidismand HTN. Was seen by Dr. Momo burks at [facility] 02/18/2021 for complaint of bilateral breast masses. Mammogram previously performed on 02/14/2021 demonstrated that the palpable abnormality in the left breast corresponded to a 4 x 2.8 cm spiculated nodule in the inferior medial aspect of the breast. There was also evidence of a spiculated density in the retroareolar region of the left breast in the m idsection as well as a 2.3 x 1 cm well-defined nodule in the anterior upper lateral aspect of the right breast. Ultrasound performed the same day demonstrated a 2.5 x 2.5 x 2 cm heterogeneous solid nodule at the11 o'clock position in the right breast 4 cm from the nipple. Biopsy was recommended. In the left breast there was a 1.2 x 1.4 x 1.9 cm irregular hypoechoic nodule with posterior acoustical shadowing at the 6 o'clock position in the breast 3 cm from the nipple. Biopsy was recommended.There was a similar-appearing mass at the 8 o'clock position of the breast 4 cm from the nipple measuring 2.2 x 3 x 1.6 cm this was at the 8 o'clock position of the breast 4 cm from the nipple. Posterior acoustic shadowing was also observed. Biopsies were recommended. Finally there was evidence of a 1.2 x 0.8 x 1 cm solid and cystic nodule at the 12 o'clock position in the breast 3 cm from the nipple. Biopsy was recommended. Patient underwent an ultrasound-guided biopsy of a left breast mass at the 6:00, 8:00 and 12:00 positions without complication on 02/19/2021. Pathology: Left breast 12:00 core biopsy revealed collagenized tissue with no evidence of malignancy. Left breast biopsy at 8 o'clock position demonstrated invasive ductal carcinoma with the following characteristics nuclear grade 1. Left breast biopsy 6 o'clock position demonstrated invasive ductal carcinoma with the following characteristics nuclear grade 1. Right breast biopsy 11:00 core biopsy showed focal intraductal hyperplasia without atypia. Both invasive malignancies were ER/MO positive (greater than 95%, moderate to strong intensity for both tumors) both tumors were 0-1+ HER-2 on IHC. MRI Breasts 03/04/2021: The left breast was noted to be heterogeneously dense with minimal background enhancement. There was an extensive area of non-mass enhancement involving the lower inner and lower outer quadrants of the left breast measuring approximately 5.9 x 4.2 x 4.4 cm. Tissue clip marker artifact was noted. There were shotty lymph nodes in both axillae, left greater than right noted. None these lymph nodes were suspicious by MRI criteria. The right breast tissue was heterogeneously dense with minimal background enhancement. Tissue clip marker artifact was observed from prior biopsy. No abnormal enhancingmasses or areas of non-mass enhancement were observed in the right breast. Patient was then referred to [facility]. She underwent a right breast core needle biopsy of the 11 o'clock position 4 cm from the nipple. Tissue demonstrated benign breast parenchyma with dense stromal fibrosis. Genetic testing for MAKAYLA, BRCA1, BRCA2, CDH 1, CHEK 2, PALB 2, PTEN and Tp53 were negative. Patient underwent a left skin sparing mastectomy, left sentinel lymph node biopsy followed by left axillary dissection along with a right prophylactic skin sparing mastectomy and immediate tissue service developer placement, muscle graft harvest x2 and nerve repair x2 on 04/11/2021. Pathology: A. Left sentinel lymph node, excision - Positive for metastatic carcinoma (0/1). B. Breast, left, mastectomy - Invasive moderately differentiated micropapillary carcinoma. Surgicalmargins negative for malignancy. Fibrocystic changes. C. Breast, right, mastectomy - Benign breast tissues with fibrocystic changes and intraductal papilloma. D. Lymph nodes (14), left axilla, excision - Negative for malignancy (0/14). Single tumor. 8.5 cm. Single focus of disease. Margins uninvolved by invasive carcinoma. Closest was the inferior margin at 7 mm. One sentinel lymph node contained an 8 mm metastatic deposit. Extranodal extension was not observed. 14 additional lymph nodes were retrieved and negative. pT3 pN1a Expanders removed 05/05/2021. Had endometrial ablation 2006. Hot flashes about 3 years ago. Prior adjuvant therapy: 1) Anastrozole. Patient self discontinued after 3 months and did not start letrozole as recommended. 2) Tamoxifen. Began 04/09/2022. Stopped about a month later. Current adjuvant therapy: None. Presents for ongoing oncologic management. Interim history: When last year, she endorsed that she was tolerating tamoxifen very well. She discontinued it very shortly thereafter but did not let us know. My nurse was with me during the entire encounter today. The patient seemed very flustered and related that she feels like she is still going through menopausal symptoms consisting of hot flashes and mood swings. She denied any vaginal bleeding or spotting. Was seen at her surgeon's office at [facility] on 10/21. She still having some numbness of the medial left upper arm. Numbness extends into the left axilla.No symptoms of lymphedema. PMH, medications and allergies personally reviewed by me today. Any changes documented in appropriate section. PHYSICAL EXAM: Vitals: Blood pressure 142/86, pulse 82, temperature 36.6 C (97.8 F), weight 128.4 kg (283 lb), last menstrual period 05/11/2007. Well-appearing and in no acute distress. EYES: Sclerae are anicteric bilaterally. LYMPHATIC: There is no palpable cervical, supraclavicular or axillary adenopathy. RESPIRATORY: Inspiratory breath sounds are of normal intensity in all meyer. No rales, wheezes or rhonchi. CARDIOVASCULAR: Rhythm is regular. BREAST: Nurse chaperoned. Bilateral mastectomy sites are well-healed. There is no firm mass or nodule to suggest chest wall recurrence. ABDOMEN: The abdomen is nondistended. Extremities: No swelling or edema. SKIN: No jaundice or rash. 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 -Declined adjuvant chemotherapy. -Patient was seen by two radiation oncologists who recommended adjuvant radiation. She declined. -Ki67 was performed on 2 of the core biopsies from the breast tumor, the first from the 8 o'clock position yielded a Ki67 of 15% and the second from the 6:00 core biopsy yielded Ki67 5%. -Tried anastrozole for 3 months--stopped due to side effects--didn't try letrozole as prescribed. -Previously used the [place] predict tool to help illustrate the potential benefit of adjuvant endocrinetherapy. -She had been tolerating tamoxifen well initially the first month but stopped shortly thereafter and unfortunately did not let us know. -She is having hot flashes and mood swings and feels as if she is going through menopause. Had hot flashes about 3 years prior. -She understands she is at high risk for recurrence without adjuvant endocrine therapy but she seems to be under a lot of stress today and I recommended evaluation by a composite mechanic who is facile with women's health issues. She was very appreciative of this recommendation. Hopefully thereafter I can convince her to restart endocrine therapy. Plan: -Referral to Dr. Jeffrey at [facility]. -Office visit in 3 months. Portions of this documentation were copied and pasted from previous office visit notes in order to provide a cohesive continuity of the history. The note has been reviewed and edited and updated as necessary. I spent a total of 30 minutes on the date of the service which included preparing to see the patient, [id number] patient care, completing clinical documentation, obtaining and/or reviewing separately obtained history, performing a medically appropriate examination, and counseling and educating the patient/family/caregiver. Agusto De Leon DO * Hayde Azul LPN - 11/12/2022 4:03 PM EDT Est. Pt. Discuss recent labs, 6 month f/u Only took the Tamoxifen for 1 month, couldn't stand the side effects. Hayde Azul LPN documented in this [facility] NoteHNO ID: [id number] Author: Leela No PT Service: ? Author Type: Physical Therapist Type: Progress Notes Filed: 10/29/2022 2:08 PM Note Text: Episode Visit Count: 1 Therapist That Will Accept/Oversee The Plan Of Care: Oneal Start of Care Date: 10/29/22 Onset Date: 05/29/21 Patient Identified by Name and Date of : Yes REHABILITATION AND SPORTS THERAPY PHYSICAL THERAPY EVALUATION PLAN OF CARE: Assessment: Shira Bautista presents with chief complaint of L arm and chest wall numbness and pain that interferes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 left breast in the midsection as well as a 2.3 x 1 cm well-defined nodule in the anterior upper lateral aspect of the right breast. Ultrasound performed the same day demonstrated a 2.5 x 2.5 x 2 cm heterogeneous solid nodule at the 11 o'clock position in the right breast 4 cm from the nipple. Biopsy was recommended. In the left breast there was a 1.2 x 1.4 x 1.9 cm irregular hypoechoic nodule with posterior acoustical shadowing at the 6 o'clock position in the breast 3 cm from the nipple. Biopsy was recommended. There was a similar-appearing mass at the 8 o'clock position of the breast 4 cm from the nipple measuring 2.2 x 3 x 1.6 cm this was at the 8 o'clock position of the breast 4 cm from the nipple. Posterior acoustic shadowing was also observed. Biopsies were recommended. Finally there was evidence of a 1.2 x 0.8 x 1 cm solid and cystic nodule at the 12 o'clock position in the breast 3 cm from the nipple. Biopsy was recommended. Patient underwent an ultrasound-guided biopsy of a left breast mass at the 6:00, 8:00 and 12:00 positions without complication on 02/19/2021. Pathology: Left breast 12:00 core biopsy revealed collagenized tissue with no evidence of malignancy. Left breast biopsy at 8 o'clock position demonstrated invasive ductal carcinoma with the following characteristics nuclear grade 1. Left breast biopsy 6 o'clock position demonstrated invasive ductal carcinoma with the following characteristics nuclear grade 1. Right breast biopsy 11:00 core biopsy showed focal intraductal hyperplasia without atypia. Both invasive malignancies were ER/MO positive (greater than 95%, moderate to strong intensity for both tumors) both tumors were 0-1+ HER-2 on IHC. MRI Breasts 03/04/2021: The left breast was noted to be heterogeneously dense with minimal background enhancement. There was an extensive area of non-mass enhancement involving the lower inner and lower outer quadrants of the left breast measuring approximately 5.9 x 4.2 x 4.4 cm. Tissue clip marker artifact was noted. There were shotty lymph nodes in both axillae, left greater than right noted. None these lymph nodes were suspicious by MRI criteria. The right breast tissue was heterogeneously dense with minimal background enhancement. Tissue clip marker artifact was observed from prior biopsy. No abnormal enhancing masses or areas of non-mass enhancement were observed in the right breast. Patient was then referred to [facility]. She underwent a right breast core needle biopsy of the 11 o'clock position 4 cm from the nipple. Tissue demonstrated benign breast parenchyma with dense stromal fibrosis. Genetic testing for MAKAYLA, BRCA1, BRCA2, CDH 1, CHEK 2, PALB 2, PTEN and Tp53 were negative. Patient underwent a left skin sparing mastectomy, left sentinel lymph node biopsy followed by left axillary dissection along with a right prophylactic skin sparing mastectomy and immediate tissue service developer placement, muscle graft harvest x2 and nerve repair x2 on 04/11/2021. Pathology: A. Left sentinel lymph node, excision - Positive for metastatic carcinoma (0/1). B. Breast, left, mastectomy - Invasive moderately differentiated micropapillary carcinoma. Surgical margins negative for malignancy. Fibrocystic changes. C. Breast, right, mastectomy - Benign breast tissues with fibrocystic changes and intraductal papilloma. D. Lymph nodes (14), left axilla, excision - Negative for malignancy (0/14). Single tumor. 8.5 cm. Single focus of disease. Margins uninvolved by invasive carcinoma. Closest was the inferior margin at 7 mm. One sentinel lymph node contained an 8 mm metastatic deposit. Extranodal extension was not observed. 14 additional lymph nodes were retrieved and negative. pT3 pN1a Expanders removed 05/05/2021. Had endometrial ablation 2006. Hot flashes about 3 years ago. Prior adjuvant therapy: 1) Anastrozole. Patient self discontinued after 3 months and did not start letrozole as recommended. Current adjuvant therapy: 1) Tamoxifen. Began 04/09/2022. 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 HPI: The patient is a 52-year-old female with a past medical history significant for hypothyroidismand HTN. Was seen by Dr. Momo burks at [facility] 02/18/2021 for complaint of bilateral breast masses. Mammogram previously performed on 02/14/2021 demonstrated that the palpable abnormality in the left breast corresponded to a 4 x 2.8 cm spiculated nodule in the inferior medial aspect of the breast. There was also evidence of a spiculated density in the retroareolar region of the left breast in the m idsection as well as a 2.3 x 1 cm well-defined nodule in the anterior upper lateral aspect of the right breast. Ultrasound performed the same day demonstrated a 2.5 x 2.5 x 2 cm heterogeneous solid nodule at the11 o'clock position in the right breast 4 cm from the nipple. Biopsy was recommended. In the left breast there was a 1.2 x 1.4 x 1.9 cm irregular hypoechoic nodule with posterior acoustical shadowing at the 6 o'clock position in the breast 3 cm from the nipple. Biopsy was recommended.There was a similar-appearing mass at the 8 o'clock position of the breast 4 cm from the nipple measuring 2.2 x 3 x 1.6 cm this was at the 8 o'clock position of the breast 4 cm from the nipple. Posterior acoustic shadowing was also observed. Biopsies were recommended. Finally there was evidence of a 1.2 x 0.8 x 1 cm solid and cystic nodule at the 12 o'clock position in the breast 3 cm from the nipple. Biopsy was recommended. Patient underwent an ultrasound-guided biopsy of a left breast mass at the 6:00, 8:00 and 12:00 positions without complication on 02/19/2021. Pathology: Left breast 12:00 core biopsy revealed collagenized tissue with no evidence of malignancy. Left breast biopsy at 8 o'clock position demonstrated invasive ductal carcinoma with the following characteristics nuclear grade 1. Left breast biopsy 6 o'clock position demonstrated invasive ductal carcinoma with the following characteristics nuclear grade 1. Right breast biopsy 11:00 core biopsy showed focal intraductal hyperplasia without atypia. Both invasive malignancies were ER/MO positive (greater than 95%, moderate to strong intensity for both tumors) both tumors were 0-1+ HER-2 on IHC. MRI Breasts 03/04/2021: The left breast was noted to be heterogeneously dense with minimal background enhancement. There was an extensive area of non-mass enhancement involving the lower inner and lower outer quadrants of the left breast measuring approximately 5.9 x 4.2 x 4.4 cm. Tissue clip marker artifact was noted. There were shotty lymph nodes in both axillae, left greater than right noted. None these lymph nodes were suspicious by MRI criteria. The right breast tissue was heterogeneously dense with minimal background enhancement. Tissue clip marker artifact was observed from prior biopsy. No abnormal enhancingmasses or areas of non-mass enhancement were observed in the right breast. Patient was then referred to [facility]. She underwent a right breast core needle biopsy of the 11 o'clock position 4 cm from the nipple. Tissue demonstrated benign breast parenchyma with dense stromal fibrosis. Genetic testing for MAKAYLA, BRCA1, BRCA2, CDH 1, CHEK 2, PALB 2, PTEN and Tp53 were negative. Patient underwent a left skin sparing mastectomy, left sentinel lymph node biopsy followed by left axillary dissection along with a right prophylactic skin sparing mastectomy and immediate tissue service developer placement, muscle graft harvest x2 and nerve repair x2 on 04/11/2021. Pathology: A. Left sentinel lymph node, excision - Positive for metastatic carcinoma (0/1). B. Breast, left, mastectomy - Invasive moderately differentiated micropapillary carcinoma. Surgicalmargins negative for malignancy. Fibrocystic changes. C. Breast, right, mastectomy - Benign breast tissues with fibrocystic changes and intraductal papilloma. D. Lymph nodes (14), left axilla, excision - Negative for malignancy (0/14). Single tumor. 8.5 cm. Single focus of disease. Margins uninvolved by invasive carcinoma. Closest was the inferior margin at 7 mm. One sentinel lymph node contained an 8 mm metastatic deposit. Extranodal extension was not observed. 14 additional lymph nodes were retrieved and negative. pT3 pN1a Expanders removed 05/05/2021. Had endometrial ablation 2006. Hot flashes about 3 years ago. Prior adjuvant therapy: 1) Anastrozole. Patient self discontinued after 3 months and did not start letrozole as recommended. Current adjuvant therapy: 1) Tamoxifen. Began 04/09/2022. Presents for ongoing oncologic management. Interim history: Tolerating tamoxifen much better. Still having some hot flashes though not as frequent or as intense as when she was on anastrozole. No leg pain or swelling. No shortness of breath. Mood doing well. PMH, medications and allergies personally reviewed by me today. Any changes documented in appropriate section. PHYSICAL EXAM: Vitals: Blood pressure 153/93, pulse 74, temperature 37.2 C (99 F), weight 117.9 kg (260 lb), last menstrual period 05/11/2007, SpO2 96 %. Well-appearing and in no acute distress. EYES: Sclerae are anicteric bilaterally. LYMPHATIC: There is no palpable cervical, supraclavicular or axillary adenopathy. RESPIRATORY: Inspiratory breath sounds are of normal intensity in all meyer. No rales, wheezes or rhonchi. CARDIOVASCULAR: Rhythm is regular. BREAST: Deferred today. ABDOMEN: The abdomen is nondistended. Extremities: No swelling or edema. SKIN: No jaundice or rash. 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 -Declined adjuvant chemotherapy. -Patient was seen by two radiation oncologists who recommended adjuvant radiation. She declined. -Ki67 was performed on 2 of the core biopsies from the breast tumor, the first from the 8 o'clock position yielded a Ki67 of 15% and the second from the 6:00 core biopsy yielded Ki67 5%. -Tried anastrozole for 3 months--stopped due to side effects--didn't try letrozole as prescribed. -Previously used the [place] predict tool to help illustrate the potential benefit of adjuvant endocrinetherapy. -Now tolerating tamoxifen overall very well with the exception of hot flashes. I educated her on the signs/symptoms of DVT/PE and advised her to get emergency care should she develop those symptoms. -I personally reviewed the CT images of the chest with those done at [facility] on 07/07/2021. The 3 mm left mid lung nodule located in the periphery was present on that exam. Additionally the small 6 mm benign-appearing lymph node in the axilla was present and measured the same at that time as well. Reviewed all this in detail with her. LEONIDES. -Home diastolic blood pressure is typically between 85 and 90 mmHg. Plan: -Continue tamoxifen. -OV in 6 months. -Reasonable to repeat CT imaging in about a year. -Also advised her to contact her PCP about management of hypertension. She expressed an understanding and agreement to do so. Portions of this documentation were copied and pasted from previous office visit notes in order to provide a cohesive continuity of the history. The note has been reviewed and edited and updated as necessary. I spent 30 minutes in the visit, with more than 50% of the total [id number] time of the visit in reviewing test results, plan of care and coordination of care Agusto De Leon DO documented [facility]* Diagnosis Malignant neoplasm of overlapping sites of left breast in female, estrogen receptor positive (HCC)- Primary 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 from neoplasm of breast determined by histopathologic examination (pN1a) (HCC) documented in this encounter [facility] NoteHNO ID: [id number] Author: Leandra Reef Kulkarni, RT(R) Service: ? Author Type: Indirect Sales Representative Type: Progress Notes Filed: 04/23/2022 3:59 PM Note Text: Radiology Service Progress Note DATE OF SERVICE: April 23, 2022 TIME: 3:58 PM PATIENT IDENTITY VERIFICATION COMPLETED USING TWO (2) STANDARD IDENTIFIERS: Name and Date of confirmed by patient verbally. FALL SCREENING: Has the patient had 2 falls in the last year or 1 fall with injury or currently using an Ambulatory Assistive Device (Walker, Cane, Wheelchair, Crutches, etc.)? No PATIENT GENDER DATA: Female. status: : No status: NO. PATIENT RELEVANT IMPLANT DATA REVIEWED: Yes ALLERGIES: Reviewed and unchanged CONTRAST ALLERGY: NO. EXAM: CT -CONTRAST INDUCED NEPHROPATHY RISK FACTORS: Not applicable CREATININE: Creatinine Date Value Ref Range Status 04/08/2022 0.71 0.58 - 0.96 mg/dL Final 03/19/2021 0.77 0.58 - 0.96 mg/dL Final Estimated Glomerular Filtration Rate Date Value Ref Range Status 04/08/2022 101 >=60 mL/min/1.73m? Final Comment: Estimated Glomerular Filtration Rate (eGFR) is calculated using the 2020 CKD-EPI creatinine equation. This equation utilizes serum creatinine, sex, and age as parameters. The creatinine assay has traceable calibration to isotope dilution-mass spectrometry. Refer to KDIGO guidelines for clinical interpretation. In patients with unstable renal function, e.g. those with acute kidney injury, the eGFR may not accurately reflect actual GFR. eGFR- Date Value Ref Range Status 03/19/2021 >60 Final P.O.C.T. RESULTS: POC done: Yes, See Lab Tab April 23, 2022 TREATMENT: N/A PERIPHERAL IV DATA: Ambulatory: A peripheral IV was started in the Right forearm with a Angio cath: 22 gauge. RADIOLOGY DEPARTMENT: CT; Exam(s) Completed: Chest Abdomen Pelvis SIGNATURE: RT Mable(R) PATIENT NAME: Shira Bautista DATE: April 23, 2022 TIME: 3:58 [facility]11-02-2022 NoteHNO ID: [id number] Author: Agusto De Leon, DO Service: ? 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 HPI: The patient is a 52-year-old female with a past medical history significant for hypothyroidism and HTN. Was seen by Dr. Momo burks at [facility] 02/18/2021 for complaint of bilateral breast masses. Mammogram previously performed on 02/14/2021 demonstrated that the palpable abnormality in the left breast corresponded to a 4 x 2.8 cm spiculated nodule in the inferior medial aspect of the breast. There was also evidence of a spiculated density in the retroareolar region of the left breast in the midsection as well as a 2.3 x 1 cm well-defined nodule in the anterior upper lateral aspect of the right breast. Ultrasound performed the same day demonstrated a 2.5 x 2.5 x 2 cm heterogeneous solid nodule at the 11 o'clock position in the right breast 4 cm from the nipple. Biopsy was recommended. In the left breast there was a 1.2 x 1.4 x 1.9 cm irregular hypoechoic nodule with posterior acoustical shadowing at the 6 o'clock position in the breast 3 cm from the nipple. Biopsy was recommended. There was a similar-appearing mass at the 8 o'clock position of the breast 4 cm from the nipple measuring 2.2 x 3 x 1.6 cm this was at the 8 o'clock position of the breast 4 cm from the nipple. Posterior acoustic shadowing was also observed. Biopsies were recommended. Finally there was evidence of a 1.2 x 0.8 x 1 cm solid and cystic nodule at the 12 o'clock position in the breast 3 cm from the nipple. Biopsy was recommended. Patient underwent an ultrasound-guided biopsy of a left breast mass at the 6:00, 8:00 and 12:00 positions without complication on 02/19/2021. Pathology: Left breast 12:00 core biopsy revealed collagenized tissue with no evidence of malignancy. Left breast biopsy at 8 o'clock position demonstrated invasive ductal carcinoma with the following characteristics nuclear grade 1. Left breast biopsy 6 o'clock position demonstrated invasive ductal carcinoma with the following characteristics nuclear grade 1. Right breast biopsy 11:00 core biopsy showed focal intraductal hyperplasia without atypia. Both invasive malignancies were ER/MO positive (greater than 95%, moderate to strong intensity for both tumors) both tumors were 0-1+ HER-2 on IHC. MRI Breasts 03/04/2021: The left breast was noted to be heterogeneously dense with minimal background enhancement. There was an extensive area of non-mass enhancement involving the lower inner and lower outer quadrants of the left breast measuring approximately 5.9 x 4.2 x 4.4 cm. Tissue clip marker artifact was noted. There were shotty lymph nodes in both axillae, left greater than right noted. None these lymph nodes were suspicious by MRI criteria. The right breast tissue was heterogeneously dense with minimal background enhancement. Tissue clip marker artifact was observed from prior biopsy. No abnormal enhancing masses or areas of non-mass enhancement were observed in the right breast. Patient was then referred to [facility]. She underwent a right breast core needle biopsy of the 11 o'clock position 4 cm from the nipple. Tissue demonstrated benign breast parenchyma with dense stromal fibrosis. Genetic testing for MAKAYLA, BRCA1, BRCA2, CDH 1, CHEK 2, PALB 2, PTEN and Tp53 were negative. Patient underwent a left skin sparing mastectomy, left sentinel lymph node biopsy followed by left axillary dissection along with a right prophylactic skin sparing mastectomy and immediate tissue service developer placement, muscle graft harvest x2 and nerve repair x2 on 04/11/2021. Pathology: A. Left sentinel lymph node, excision - Positive for metastatic carcinoma (0/1). B. Breast, left, mastectomy - Invasive moderately differentiated micropapillary carcinoma. Surgical margins negative for malignancy. Fibrocystic changes. C. Breast, right, mastectomy - Benign breast tissues with fibrocystic changes and intraductal papilloma. D. Lymph nodes (14), left axilla, excision - Negative for malignancy (0/14). Single tumor. 8.5 cm. Single focus of disease. Margins uninvolved by invasive carcinoma. Closest was the inferior margin at 7 mm. One sentinel lymph node contained an 8 mm metastatic deposit. Extranodal extension was not observed. 14 additional lymph nodes were retrieved and negative. pT3 pN1a Expanders removed 05/05/2021. Had endometrial ablation 2006. Hot flashes about 3 years ago. Presents for ongoing oncologic management. Interim history: She took anastrozole for approximately 3 months then stopped due to side effects. She did not start letrozole. 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 HPI: The patient is a 52-year-old female with a past medical history significant for hypothyroidismand HTN. Was seen by Dr. Momo burks at [facility] 02/18/2021 for complaint of bilateral breast masses. Mammogram previously performed on 02/14/2021 demonstrated that the palpable abnormality in the left breast corresponded to a 4 x 2.8 cm spiculated nodule in the inferior medial aspect of the breast. There was also evidence of a spiculated density in the retroareolar region of the left breast in the m idsection as well as a 2.3 x 1 cm well-defined nodule in the anterior upper lateral aspect of the right breast. Ultrasound performed the same day demonstrated a 2.5 x 2.5 x 2 cm heterogeneous solid nodule at the11 o'clock position in the right breast 4 cm from the nipple. Biopsy was recommended. In the left breast there was a 1.2 x 1.4 x 1.9 cm irregular hypoechoic nodule with posterior acoustical shadowing at the 6 o'clock position in the breast 3 cm from the nipple. Biopsy was recommended.There was a similar-appearing mass at the 8 o'clock position of the breast 4 cm from the nipple measuring 2.2 x 3 x 1.6 cm this was at the 8 o'clock position of the breast 4 cm from the nipple. Posterior acoustic shadowing was also observed. Biopsies were recommended. Finally there was evidence of a 1.2 x 0.8 x 1 cm solid and cystic nodule at the 12 o'clock position in the breast 3 cm from the nipple. Biopsy was recommended. Patient underwent an ultrasound-guided biopsy of a left breast mass at the 6:00, 8:00 and 12:00 positions without complication on 02/19/2021. Pathology: Left breast 12:00 core biopsy revealed collagenized tissue with no evidence of malignancy. Left breast biopsy at 8 o'clock position demonstrated invasive ductal carcinoma with the following characteristics nuclear grade 1. Left breast biopsy 6 o'clock position demonstrated invasive ductal carcinoma with the following characteristics nuclear grade 1. Right breast biopsy 11:00 core biopsy showed focal intraductal hyperplasia without atypia. Both invasive malignancies were ER/MO positive (greater than 95%, moderate to strong intensity for both tumors) both tumors were 0-1+ HER-2 on IHC. MRI Breasts 03/04/2021: The left breast was noted to be heterogeneously dense with minimal background enhancement. There was an extensive area of non-mass enhancement involving the lower inner and lower outer quadrants of the left breast measuring approximately 5.9 x 4.2 x 4.4 cm. Tissue clip marker artifact was noted. There were shotty lymph nodes in both axillae, left greater than right noted. None these lymph nodes were suspicious by MRI criteria. The right breast tissue was heterogeneously dense with minimal background enhancement. Tissue clip marker artifact was observed from prior biopsy. No abnormal enhancingmasses or areas of non-mass enhancement were observed in the right breast. Patient was then referred to [facility]. She underwent a right breast core needle biopsy of the 11 o'clock position 4 cm from the nipple. Tissue demonstrated benign breast parenchyma with dense stromal fibrosis. Genetic testing for MAKAYLA, BRCA1, BRCA2, CDH 1, CHEK 2, PALB 2, PTEN and Tp53 were negative. Patient underwent a left skin sparing mastectomy, left sentinel lymph node biopsy followed by left axillary dissection along with a right prophylactic skin sparing mastectomy and immediate tissue service developer placement, muscle graft harvest x2 and nerve repair x2 on 04/11/2021. Pathology: A. Left sentinel lymph node, excision - Positive for metastatic carcinoma (0/1). B. Breast, left, mastectomy - Invasive moderately differentiated micropapillary carcinoma. Surgicalmargins negative for malignancy. Fibrocystic changes. C. Breast, right, mastectomy - Benign breast tissues with fibrocystic changes and intraductal papilloma. D. Lymph nodes (14), left axilla, excision - Negative for malignancy (0/14). Single tumor. 8.5 cm. Single focus of disease. Margins uninvolved by invasive carcinoma. Closest was the inferior margin at 7 mm. One sentinel lymph node contained an 8 mm metastatic deposit. Extranodal extension was not observed. 14 additional lymph nodes were retrieved and negative. pT3 pN1a Expanders removed 05/05/2021. Had endometrial ablation 2006. Hot flashes about 3 years ago. Presents for ongoing oncologic management. Interim history: She took anastrozole for approximately 3 months then stopped due to side effects. She did not startletrozole. She did not contact the office regarding not starting letrozole. While on anastrozole, she had side effects that made me feel like a man. Was having mood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 plastics and biopsy. Follow up: Return for pre op appointment. Ivory Ramesh MD 03/11/2021 11:24 AM [facility]* Ledy Khan LPN - 03/11/2021 10:19 AM EDT Patient presents for new breast cancer diagnosis. Patient states that in December she had tenderness toher left breast and had not had mammograms since 2016. Imaging revealed multiple areas bilaterally that were biopsied Left breast has a healing wound that is dry and scabbed over Ledy Khan LPN [facility] [place] [facility]* Diagnosis Malignant neoplasm of female breast, unspecified estrogen receptor status, unspecified laterality, unspecified site of breast Family history of breast cancer Family history of malignant neoplasm of breast Family history of stomach cancer Family history of malignant neoplasm of gastrointestinal tract Family history of melanoma Family history of other specified malignant neoplasm [facility]* Diagnosis Lump of right breast- Primary Lump or mass in breast [facility] [place] [facility]* Diagnosis Malignant neoplasm of overlapping sites of left breast in female, estrogen receptor positive (HCC)- Primary Breast mass, right Lump or mass in breast documented [facility] this encounter [facility] [place] [facility]* Diagnosis Lump of right breast Lump or mass in breast [facility]* Diagnosis Malignant neoplasm of overlapping sites of left breast in female, estrogen receptor positive (HCC) documented [facility] [place] [facility]* Diagnosis Malignant neoplasm of overlapping sites of left breast in female, estrogen receptor positive (HCC) [facility]* Diagnosis Malignant neoplasm of overlapping sites of left breast in female, estrogen receptor positive (HCC)- Primary [facility] [place] [facility]* Diagnosis Malignant neoplasm of overlapping sites of left breast in female, estrogen receptor positive (HCC)- Primary documented [facility]* Diagnosis Preop testing Preoperative examination, unspecified Malignant neoplasm of overlapping sites of left breast in female, estrogen receptor positive (HCC) Hypertension, unspecified type Hyperlipidemia, unspecified hyperlipidemia type Malignant neoplasm of overlapping sites of left breast in female, estrogen receptor positive (HCC) documented in this encounter [facility] note* Diagnosis Malignant neoplasm of overlapping sites of left breast in female, estrogen receptor positive (HCC)- Primary Malignant neoplasm of overlapping sites of left breast in female, estrogen receptor positive (HCC) documented in this encounter [facility]* Diagnosis Post-operative pain- Primary Other acute postoperative pain documented in this encounter [facility] note* Diagnosis Malignant neoplasm of overlapping sites of left breast in female, estrogen receptor positive (HCC)- Primary documented in this encounter [facility]* Diagnosis Malignant neoplasm of overlapping sites of left breast in female, estrogen receptor positive (HCC)- Primary 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 from neoplasm of breast determined by histopathologic examination (pN1a) (HCC) documented in this encounter [facility]* Diagnosis Nerve pain Neuralgia, neuritis, and radiculitis, unspecified Malignant neoplasm of overlapping sites of left breast in female, estrogen receptor positive (HCC) 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 from neoplasm of breast determined by histopathologic examination (pN1a) (HCC) documented in this encounter [facility] for referral (narrative)* Diagnostic Procedure Only (Routine) Status Reason Specialty Diagnoses / Procedures Referred By Contact Referred To Contact Authorized Auto-Generated Referral BR IMAGING Diagnoses Lump of right breast Procedures US BIOPSY BREAST RT BREAST BIOPSY W/ULTRASOUND GUIDANCE Ivory Ramesh MD [address] [place] [address] Br Imaging [address] [place] [address] [facility] for referral (narrative)* Diagnostic Procedure Only (Routine) Status Reason Specialty Diagnoses / Procedures Referred By Contact Referred To Contact Closed Auto-Generated Referral BR IMAGING Diagnoses Lump of right breast Procedures US BIOPSY BREAST RT BREAST BIOPSY W/ULTRASOUND GUIDANCE [facility] MD 1 [facility] [address] [place] [address] Br Imaging [address] [place] [address] [facility] for visit Narrative* Diagnostic Procedure Only (Routine) Status Reason Specialty Diagnoses / Procedures Referred By Contact Referred To Contact Closed Auto-Generated Referral BR IMAGING Diagnoses Lump of right breast Procedures US BIOPSY BREAST RT BREAST BIOPSY W/ULTRASOUND GUIDANCE Ivory Ramesh MD 1 [employer] [facility] 1ST FLR ACC BRE[facility] CTR [place] [id number] Br Imaging [id number] [place] [address] [facility] Reason for Referral Specialty Diagnoses / Procedures Referred By Contac t Referred To Contact Lab Diagnoses Malignant neoplasm of female breast, unspecified estrogen receptor status, unspecified laterality, unspecified site of breast Family history of breast cancer Family history of stomach cancer Family history of melanoma Procedures Genetic Sendout: [employer] [place] [address] Referral ID Status Reason Start Date Expiration Date V isits Requested Visits Authorized [id number] Open Specialty Services Required 02/27/2021 02/27/2022 1 1 Status Reason Specialty Diagnoses / Procedures Referred By Contact Referred To Contact Authorized PCP Requested Referral Plastic Surgery Diagnoses Malignant neoplasm of overlapping sites of left breast in female, estrogen receptor positive (HCC) Procedures CONSULT TO PLASTIC SURGERY NEW PATIENT VISIT LEVEL 5 Ivory Ramesh MD 1 [facility] [address] [place] [address] Status Reason Specialty Diagnoses / Procedures Referred By Contact Referred To Contact Authorized PCP Requested Referral Oncology Diagnoses Malignant neoplasm of overlapping sites of left breast in female, estrogen receptor positive (HCC) Procedures CONSULT TO ONCOLOGY NEW PATIENT VISIT LEVEL 5 Ivory Ramesh MD 1 [facility] [address] [place] [address] Status Reason Specialty Diagnoses / Procedures Referred By Contact Referred To Contact Pending Review Auto-Generate d Referral [facility] Diagnoses Malignant neoplasm of overlapping sites of left breast in female, estrogen receptor positive (HCC) Procedures ECG COMPLETE EKG WITH INTERPRETATION Ivory Ramesh MD 1 [facility] [address] FLR [facility] [place] [address] [facility] [address] [place] [address] Specialty Diagnoses / Procedures Referred By Contac t Referred To Contact CT IMAGING Diagnoses Malignant neoplasm of overlapping sites of left breast in female, estrogen receptor positive (HCC) 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 from neoplasm of breast determined by histopathologic examination (pN1a) (HCC) Procedures CT CHEST W IVCON DIAGNOSTIC COMPUTED TOMOGRAPHY THORAX W/CONTRAST Agusto De Leon, DO [address] [place] [address] Ct Imaging Referral ID Status Reason Start Date Expiration Date Visits Requested Visits Authorized [id number] Authorized Auto-Generat ed Referral 04/08/2022 05/07/2022 1 1 Specialty Diagnoses / Procedures Referred By Contac t Referred To Contact CT IMAGING Diagnoses Malignant neoplasm of overlapping sites of left breast in female, estrogen receptor positive (HCC) 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 from neoplasm of breast determined by histopathologic examination (pN1a) (HCC) Procedures CT ABD/PEL W IVCON CT ABD & PELVIS W/CONTRAST MasciAgusto, DO [address] [place] [address] Ct Imaging Referral ID Status Reason Start Date Expiration Date Visits Requested Visits Authorized [id number] Authorized Auto-Generat ed Referral 04/08/2022 05/07/2022 1 1 Specialty Diagnoses / Procedures Referred By Contac t Referred To Contact [facility] Diagnoses Nerve pain Procedures CONSULT TO LYMPHEDEMA THERAPY OFFICE/OUTPATIENT [facility] 60-74 MINUTES Maris Alexandre, DEPUTY BAILIFF.ENGINEERING MANAGER [address] [place] [address] [facility] [address] [place] [id number] Referral ID Status Reason Start Date Expiration Date V isits Requested Visits Authorized [id number] Closed Auto-Generate d Referral 10/22/2022 10/21/2023 1 1 Specialty Diagnoses / Procedures Referred By Contac t Referred To Contact CT IMAGING Diagnoses Malignant neoplasm of overlapping sites of left breast in female, estrogen receptor positive (HCC) 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 from neoplasm of breast determined by histopathologic examination (pN1a) (HCC) Procedures CT ABD/PEL W IVCON CT ABD & PELVIS W/CONTRAST Masci Agusto A, DO [address] [place] [address] Ct Imaging [id number] Referral ID Status Reason Start Date Expiration Date Visits Requested Visits Authorized [id number] Authorized Auto-Generat ed Referral 02/12/2023 03/13/2024 1 1 Advance Directives Documents on File Type Date Recorded Patient Manager Programs Expl anation Power of Pathology Laboratory Director Documents on File Type Date Recorded Patient Manager Programs Expl anation Advance Directive(s) 04/11/2021 7:11 AM Documents on File Type Date Recorded Patient Manager Programs Expl anation Advance Directive(s) 04/30/2021 10:57 AM Advance Directive(s) 04/11/2021 7:11 AM Documents on File Type Date Recorded Patient Manager Programs Expl anation Advance Directive(s) 05/05/2021 12:56 PM Advance Directive(s) 04/30/2021 10:57 AM Advance Directive(s) 04/11/2021 7:11 AM Medications Administered Section Inactive Administered Medications - up to 3 most recent administrations Medication Order MAR Action Action Date Dose Rate Site lidocaine 10 mg/mL (1 %) injection (XYLOCAINE) OTHER, NEEDED, Starting on Wed03/14/21 at 1128, Until Wed03/14/21 at 1128 Given 03/14/2021 11:28 AM EDT 100 mg O ther Summary Purpose Family History No Family History Records FoundNo Family History Records Found Additional Source Comments Reason for Visit (unrecogniz ed section and content) Referral ID Status Reason Start Date Expiration Date V isits Requested Visits Authorized [id number] Open Specialty Services Required 02/27/2021 02/27/2022 1 1 Reason Comments Orders Patient Update Reason Comments Future Appointment Biopsy Reason Comments Consult new breast cancer di agnosis Status Reason Specialty Diagnoses / Procedures Referred By Contact Referred To Contact Closed PCP Requested Referral Plastic Surgery Diagnoses Malignant neoplasm of overlapping sites of left breast in female, estrogen receptor positive (HCC) Procedures CONSULT TO PLASTIC SURGERY NEW PATIENT VISIT LEVEL 5 Ivory Ramesh MD [address] [place] [address] Reason Comments Follow Up of biopsy on right b reast, post plastics visit Reason Comments Patient Update Reason Comments Patient Question Reason Comments Results Reason Comments Medication Problem Reason Comments Established Patient Reason Comments Post-Op Visit s/p bilateral mastec michael Reason Comments Future Appointment Radiation Oncology Reason Comments Breast Problem Breast Pain Reason Comments Established Patient Reason Comments Yearly Exam Specialty Diagnoses / Procedures Referred By Contac t Referred To Contact CT IMAGING Diagnoses Malignant neoplasm of overlapping sites of left breast in female, estrogen receptor positive (HCC) 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 from neoplasm of breast determined by histopathologic examination (pN1a) (HCC) Procedures CT CHEST W IVCON DIAGNOSTIC COMPUTED TOMOGRAPHY THORAX W/CONTRAST Agusto De Leon, DO [address] [facility] [address] [place] [address] Referral ID Status Reason Start Date Expiration Date V isits Requested Visits Authorized [id number] Closed Auto-Generate d Referral 04/08/2022 05/07/2022 1 1 Referral ID Status Reason Start Date Expiration Date V isits Requested Visits Authorized [id number] Closed Auto-Generate d Referral 02/12/2023 03/13/2024 1 1 Care Teams (unrecognized sec tion and content) Senior Architectural Designer Relationship Specialty Start Date End Date Monique Augustine, DO [address] [place] [address] PCP - General Family Practice 03/11/21 Ivory Ramesh MD [address] [place] [address] Surgeon Breast Diseases 03/11/21 Matthew Pace MD [address] [place] [address] Surgeon Plastic Surgery 03/18/21 Senior Architectural Designer Relationship Specialty Start Date End Date Monique Augustine, DO [address] [place] [address] PCP - General Family Practice 03/11/21 Ivory Ramesh MD [address] [place] [address] Surgeon Breast Diseases 03/11/21 Matthew Pace MD [address] [facility] [address] Surgeon Plastic Surgery 03/18/21 Senior Architectural Designer Relationship Specialty Start Date End Date Monique Augustine, DO [address] [place] [address] PCP - General Family Practice 03/11/21 Ivory Ramesh MD [address] [place] [address] Surgeon Breast Diseases 03/11/21 Matthew Pace MD [address] [place] [address] Surgeon Plastic Surgery 03/18/21 Senior Architectural Designer Relationship Specialty Start Date End Date Monique Augustine, DO [address] [place] [address] PCP - General Family Practice 03/11/21 Ivory Ramesh MD [address] [place] [address] Surgeon Breast Diseases 03/11/21 Matthew Pace MD [address] [place] [address] Surgeon Plastic Surgery 03/18/21 Senior Architectural Designer Relationship Specialty Start Date End Date Monique Augustine, DO [address] [place] [address] PCP - General Family Practice 03/11/21 Ivory Ramesh MD [address] [address] [place] [address] Surgeon Breast Diseases 03/11/21 Matthew Pace MD [address] [place] [address] Surgeon Plastic Surgery 03/18/21 Senior Architectural Designer Relationship Specialty Start Date End Date Monique Augustine, DO [address] [place] [address] PCP - General Family Practice 03/11/21 Ivory Ramesh MD [address] [place] [address] Surgeon Breast Diseases 03/11/21 Matthew Pace MD [address] [place] [address] Surgeon Plastic Surgery 03/18/21 Senior Architectural Designer Relationship Specialty Start Date End Date Monique Augustine, DO [address] [place] [address] PCP - General Family Practice 03/11/21 Ivory Ramesh MD [address] [address] [place] [address] Surgeon Breast Diseases 03/11/21 Matthew Pace MD [address] [facility] [address] [place] [address] Surgeon Plastic Surgery 03/18/21 Yannick Dillard MD, [address] [place] [address] Physician Radiation Oncology 05/12/21 Senior Architectural Designer Relationship Specialty Start Date End Date Monique Augustine, DO [address] [facility] [place] [address] PCP - General Family Practice 03/11/21 Ivory Ramesh MD [address] [address] [place] [address] Surgeon Breast Diseases 03/11/21 Matthew Pace MD [address] [facility] [address] [address] [place] [address] Surgeon Plastic Surgery 03/18/21 Yannick Dillard MD, [address] [place] [address] Physician Radiation Oncology 05/12/21 Senior Architectural Designer Relationship Specialty Start Date End Date Monique Augustine, DO [address] [place] [address] PCP - General Family Medicine 03/11/21 Ivory Ramesh MD [address] [address] [place] [address] Surgeon Breast Diseases 03/11/21 Matthew Pace MD [address] [facility] [address] [place] [address] Surgeon Plastic Surgery 03/18/21 Yannick Dillard MD, [address] [place] [address] Physician Radiation Oncology 05/12/21 Senior Architectural Designer Relationship Specialty Start Date End Date Monique Augustine, DO [address] [place] [address] PCP - General Family Medicine 03/11/21 Ivory Ramesh MD [address] [address] [place] [address] Surgeon Breast Diseases 03/11/21 Matthew Pace MD [address] [facility] [address] [place] [address] Surgeon Plastic Surgery 03/18/21 Yannick Dillard MD, [address] [facility] [place] [address] Physician Radiation Oncology 05/12/21 Senior Architectural Designer Relationship Specialty Start Date End Date Monique Augustine, DO [address] [place] [address] PCP - General Family Medicine 03/11/21 Ivory Ramesh MD [address] [address] [place] [address] Surgeon Breast Diseases 03/11/21 Matthew Pace MD [address] [place] [address] Surgeon Plastic Surgery 03/18/21 Yannick Dillard MD, [address] [place] [address] Physician Radiation Oncology 05/12/21 Senior Architectural Designer Relationship Specialty Start Date End Date Monique Augustine DO [address] [place] [address] PCP - General Family Medicine 03/11/21 Ivory Ramesh MD [address] [address] [place] [address] Surgeon Breast Diseases 03/11/21 Matthew Pace MD [address] [place] [address] Surgeon Plastic Surgery 03/18/21 Yannick Dillard MD, [address] [place] [address] Physician Radiation Oncology 05/12/21 Senior Architectural Designer Relationship Specialty Start Date End Date Monique Augustine DO [address] [place] [address] PCP - General Family Medicine 03/11/21 Ivory Ramesh MD [address] [place] [address] [place] [address] Surgeon Breast Diseases 03/11/21 Matthew Pace MD [address] [facility] [address] [place] [address] Surgeon Plastic Surgery 03/18/21 Yannick Dillard MD, [address] [facility] [place] [address] Physician Radiation Oncology 05/12/21 Senior Architectural Designer Relationship Specialty Start Date End Date Monique Augustine DO [address] [place], [place] [address] PCP - General Family Medicine 03/11/21 Ivory Ramesh MD [address] [address] [place], [place] [id number] Surgeon Breast Diseases 03/11/21 Matthew Pace MD [address] [place] [address] Surgeon Plastic Surgery 03/18/21 Yannick Dillard MD, [address] [facility] [place] [address] Physician Radiation Oncology 05/12/21 02/13/23 Senior Architectural Designer Relationship Specialty Start Date End Date Monique Augustine DO [address] [place] [address] PCP - General Family Medicine 03/11/21 Ivory Ramesh MD [address] [facility] [place], [place] [phone] Surgeon Breast Diseases 03/11/21 Matthew Pace MD [address] [place], [place] [id number] Surgeon Plastic Surgery 03/18/21 Yannick Dillard MD, [address] [place], [place] [phone] Physician Radiation Oncology 05/12/21 02/13/23 Senior Architectural Designer Relationship Specialty Start Date End Date Monique Augustine DO [address] [place], [place] [phone] PCP - General Family Medicine 03/11/21 Ivory Ramesh MD [address] [facility] [address] FLR [facility] [place], [place] [phone] Surgeon Breast Diseases 03/11/21 Matthew Pace MD [address] [place], [place] [phone] Surgeon Plastic Surgery 03/18/21 Nia Jeffrey [address] [place] [address] YARN CLEANER 02/14/23 Jeffrey Ceron DO [address] [facility] [address] [place] [address] Radiation Oncology 02/14/23 Source Comments (unrecognize d section and content) In the event this informatio n is protected by the Federal Confidentiality of Alcohol and Drug Abuse Patient Records regulations: The Federal rules restrict any use of the information to criminally investigate or prosecute any alcohol or drug abuse patient.[facility] the event this information is protected by the Federal Confidentiality of Alcohol and Drug Abuse Patient Records regulations: The Federal rules restrict any use of the information to criminally investigate or prosecute any alcohol or drug abuse patient.[facility] HospitalIn the event this information is protected by the Federal Confidentiality of Alcohol and Drug Abuse Patient Records regulations: The Federal rules restrict any use of the information to criminally investigate or prosecute any alcohol or drug abuse patient.[facility]In the event this information is protected by the Federal Confidentiality of Alcohol and Drug Abuse Patient Records regulations: The Federal rules restrict any use of the information to criminally investigate or prosecute any alcohol or drug abuse patient.[facility] HospitalIn the event this information is protected by the Federal Confidentiality of Alcohol and Drug Abuse Patient Records regulations: The Federal rules restrict any use of the information to criminally investigate or prosecute any alcohol or drug abuse patient.[facility] HospitalIn the event this information is protected by the Federal Confidentiality of Alcohol and Drug Abuse Patient Records regulations: The Federal rules restrict any use of the information to criminally investigate or prosecute any alcohol or drug abuse patient.[facility] HospitalIn the event this information is protected by the Federal Confidentiality of Alcohol and Drug Abuse Patient Records regulations: The Federal rules restrict any use of the information to criminally investigate or prosecute any alcohol or drug abuse patient.[facility] HospitalIn the event this information is protected by the Federal Confidentiality of Alcohol and Drug Abuse Patient Records regulations: The Federal rules restrict any use of the information to criminally investigate or prosecute any alcohol or drug abuse patient.[facility] HospitalIn the event this information is protected by the Federal Confidentiality of Alcohol and Drug Abuse Patient Records regulations: The Federal rules restrict any use of the information to criminally investigate or prosecute any alcohol or drug abuse patient.[facility] HospitalIn the event this information is protected by the Federal Confidentiality of Alcohol and Drug Abuse Patient Records regulations: The Federal rules restrict any use of the information to criminally investigate or prosecute any alcohol or drug abuse patient.[facility] HospitalIn the event this information is protected by the Federal Confidentiality of Alcohol and Drug Abuse Patient Records regulations: The Federal rules restrict any use of the information to criminally investigate or prosecute any alcohol or drug abuse patient.[facility] HospitalIn the event this information is protected by the Federal Confidentiality of Alcohol and Drug Abuse Patient Records regulations: The Federal rules restrict any use of the information to criminally investigate or prosecute any alcohol or drug abuse patient.[facility] HospitalIn the event this information is protected by the Federal Confidentiality of Alcohol and Drug Abuse Patient Records regulations: The Federal rules restrict any use of the information to criminally investigate or prosecute any alcohol or drug abuse patient.[facility] HospitalIn the event this information is protected by the Federal Confidentiality of Alcohol and Drug Abuse Patient Records regulations: The Federal rules restrict any use of the information to criminally investigate or prosecute any alcohol or drug abuse patient.[facility] HospitalIn the event this information is protected by the Federal Confidentiality of Alcohol and Drug Abuse Patient Records regulations: The Federal rules restrict any use of the information to criminally investigate or prosecute any alcohol or drug abuse patient.[facility] HospitalIn the event this information is protected by the Federal Confidentiality of Alcohol and Drug Abuse Patient Records regulations: The Federal rules restrict any use of the information to criminally investigate or prosecute any alcohol or drug abuse patient.[facility] HospitalIn the event this information is protected by the Federal Confidentiality of Alcohol and Drug Abuse Patient Records regulations: The Federal rules restrict any use of the information to criminally investigate or prosecute any alcohol or drug abuse patient.[facility] HospitalIn the event this information is protected by the Federal Confidentiality of Alcohol and Drug Abuse Patient Records regulations: The Federal rules restrict any use of the information to criminally investigate or prosecute any alcohol or drug abuse patient.[facility] HospitalIn the event this information is protected by the Federal Confidentiality of Alcohol and Drug Abuse Patient Records regulations: The Federal rules restrict any use of the information to criminally investigate or prosecute any alcohol or drug abuse patient.[facility] HospitalIn the event this information is protected by the Federal Confidentiality of Alcohol and Drug Abuse Patient Records regulations: The Federal rules restrict any use of the information to criminally investigate or prosecute any alcohol or drug abuse patient.[facility] HospitalIn the event this information is protected by the Federal Confidentiality of Alcohol and Drug Abuse Patient Records regulations: The Federal rules restrict any use of the information to criminally investigate or prosecute any alcohol or drug abuse patient.[facility] HospitalIn the event this information is protected by the Federal Confidentiality of Alcohol and Drug Abuse Patient Records regulations: The Federal rules restrict any use of the information to criminally investigate or prosecute any alcohol or drug abuse patient.[facility] HospitalIn the event this information is protected by the Federal Confidentiality of Alcohol and Drug Abuse Patient Records regulations: The Federal rules restrict any use of the information to criminally investigate or prosecute any alcohol or drug abuse patient.[facility] HospitalIn the event this information is protected by the Federal Confidentiality of Alcohol and Drug Abuse Patient Records regulations: The Federal rules restrict any use of the information to criminally investigate or prosecute any alcohol or drug abuse patient.[facility]In the event this information is protected by the Federal Confidentiality of Alcohol and Drug Abuse Patient Records regulations: The Federal rules restrict any use of the information to criminally investigate or prosecute any alcohol or drug abuse patient.[facility] HospitalIn the event this information is protected by the Federal Confidentiality of Alcohol and Drug Abuse Patient Records regulations: The Federal rules restrict any use of the information to criminally investigate or prosecute any alcohol or drug abuse patient.[facility] HospitalIn the event this information is protected by the Federal Confidentiality of Alcohol and Drug Abuse Patient Records regulations: The Federal rules restrict any use of the information to criminally investigate or prosecute any alcohol or drug abuse patient.[facility] HospitalIn the event this information is protected by the Federal Confidentiality of Alcohol and Drug Abuse Patient Records regulations: The Federal rules restrict any use of the information to criminally investigate or prosecute any alcohol or drug abuse patient.[facility] INFORMATION SOURCE (unrecogn ized section and content) DATE CREATED AUTHOR AUTHOR'S JEFFREY HAYS 03/11/2023 [facility] FOR RECORDS PERTAINING TO PATIENTS WHO ARE OR HAVE BEEN ENROLLED IN A CHEMICAL DEPENDENCY/SUBSTANCEABUSE PROGRAM, SOME INFORMATION MAY BE OMITTED. This clinical summary was aggregated from multiple sources. Caution should be exercised in using it in the provision of clinical care. This summary normalizes information from multiple sources, and as a consequence, information in this document may materially change the coding, format and clinical context of patient data. In addition, data may be omitted in some cases. CLINICAL DECISIONS SHOULD BE BASED ON THE PRIMARY CLINICAL RECORDS. [facility]. provides no warranty or guarantee of the accuracy or completeness of information in this document.
[2023-07-30 12:09] LABS: HPV APTIMA, High Risk Negative (Negative)
== END | disposition home or self-care (01) ==
LOC: LABSPEC 16:03
PROVIDERS: PCP Family Medicine; Referring Provider Obstetrics & Gynecology; Visit Provider Obstetrics & Gynecology
DX: Z12.4 Encounter for screening for malignant neoplasm of cervix (principal); Z78.0 Asymptomatic menopausal state
CPT/HCPCS: 87624; 88175; G0145

== ENCOUNTER → 2023-09-16 | Outpatient (CLI) | payer BC, SELFPAY ==
[2023-09-16 12:05] LABS: Absolute Lymphocyte Count 2.01 X10^3/uL (0.83-4.51); Absolute Neutrophil Count 3.6 X10^3/uL (2.0-7.7); Basophil# 0.07 X10^3/uL; Basophil% 1.1 % (0-1); Eosinophil# 0.33 X10^3/uL; Eosinophils% 5.1 % (0-5); Hematocrit 41.9 % (37-47); Hemoglobin 13.5 g/dL (12.0-15.0); Lymphocyte # 2.01 X10^3/ul (0.83-4.51); Lymphocyte % 30.8 % (19-41); Mean Corp Hgb Conc 32.2 g/dL (32-36); Mean Corpuscular Hgb 31.2 pg (27.0-32.0); Mean Corpuscular Volume 96.8 fL (81-99); Mean Platelet Vol. 10.2 fl (6.2-12.0); Monocyte# 0.46 X10^3/uL; NRBC Flagged by Analyzer 0 % (0-5); Neutrophil # 3.64 X10^3/uL (2.7-7.7); Neutrophil % 55.7 % (47-70); Platelet Count 274 K/mm3 (150-450); RBC Distribution Width SD 46.8 fl (35.1-43.9); Red Blood Count 4.33 M/mm3 (4.2-5.4); White Blood Count 6.5 K/mm3 (4.4-11.0)
[2023-09-16 12:18] LABS: Vitamin D,25 Hydroxy 9.6 ng/mL
[2023-09-16 12:25] LABS: ALB/GLOB Ratio 0.8 RATIO (0.9-2.4); AST(SGOT) 25 U/L (15-37); Alanine Aminotransfer ALT/SGPT 28 U/L (13-56); Albumin, Serum 3.3 g/dL (3.2-5.0); Alkaline Phosphatase 67 U/L (45-117); Anion Gap 2 (5-15); BUN 14 mg/dL (7-18); BUN/Creat Ratio 17.1 RATIO (10-20); Calcium,Total 8.9 mg/dL (8.5-10.1); Chloride 109 mmol/L (98-107); Creatinine, Serum 0.82 mg/dL (0.55-1.02); EST Glomerular Filtration Rate 77 mL/min (>60); Est Glom Filt Rate - Afr Amer 93 mL/min (>60); Globulin 3.9 g/dL (2.2-4.2); Glucose 103 mg/dL (74-106); Potassium 4.4 mmol/L (3.5-5.1); Protein, Total 7.2 g/dL (6.4-8.2); Sodium Level 139 mmol/L (136-145); T4 Free Direct 1.25 ng/dL (0.76-1.46)
== END | disposition home or self-care (01) ==
LOC: BIMLAB 08:01
PROVIDERS: Obstetrics & Gynecology; PCP Family Medicine; Referring Provider Family Medicine; Visit Provider Family Medicine
DX: R53.83 Other fatigue (principal); M79.2 Neuralgia and neuritis, unspecified
CPT/HCPCS: 36415; 80053; 82306; 84439; 84443; 85025

== ENCOUNTER → 2025-01-08 | Outpatient (CLI) | payer BC, SELFPAY ==
--- OUTSIDE RECORDS SUMMARY | 2025-01-08 08:38 | XMS RPT_ITS | CCD ---
Author Organization [facility] Care Team Providers [facility] Instructor Name Role Phone Carissa Barr MD Unavailable Kym SENIOR Lesvia M Unavailable Unavailable Monique Barrera DO Primary Care Provider Ivory Ramesh MD Unavailable [phone] Matthew Pace MD Unavailable Ivory Ramesh MD Unavailable [phone] Matthew Pace MD Unavailable Matthew Pace MD Unavailable Nishant KURTZ MD, Daesung Unavailable Dr. Monique Barrera Primary Care Provider Dr. Monique Barrera Attending Provider Dr. Monique Barrera Referring Provider Monique Barrera DO Primary Care Provider Ivory Ramesh MD Unavailable [phone] Matthew Pace MD Unavailable Nishant KURTZ MD, Daesung Unavailable Dr. Monique Barrera Primary Care Provider Dr. Monique Barrera Attending Provider Dr. Monique Barrera Referring Provider Natasha Amor Attending Provider Unavailable Dr. Brennan Mckeon Attending Provider Dr. Brennan Mckeon Other Provider Monique Barrera DO Primary Care Provider Gadiel KURTZ, Ivory M Unavailable [phone] Sanjeev KURTZ, Matthew R Unavailable Nishant KURTZ MD, Daesung Unavailable Gadiel KURTZ, Ivory M Unavailable Sanjeev KURTZ, Matthew R Unavailable Nishant KURTZ MD, Daesung Unavailable Nia Jeffrey Unavailable Osmany MESA Jeffrey A Unavailable [phone] Dr. Monique Barrera Primary Care Provider [phone] Dr. Monique Barrera Attending Provider [phone] Monique Barrera Referring Provider [phone] Nia Jeffrey Attending Provider [phone] Dr. Monique Barrera Primary Care Provider [phone] Dr. Monique Barrera Attending Provider Dr. Monique Barrera Referring Provider Dr. Nia Jeffrey Attending Provider [phone] Monique Barrera DO Primary Care Provider Nia Jeffrey MD Unavailable [phone] MONIQUE BARRERA R Primary Care Unavailable MASCI, AGUSTO A Attending Unavailable MASCI, AGUSTO A Referring Unavailable UZMA ROMERO Attending Unavailable BROWN, MONIQUE R Primary Care Unavailable BROWN, MONIQUE R Primary Care Unavailable BROWN, MONIQUE R Primary Care Unavailable MASCI, AGUSTO A Referring Unavailable BROWN, MONIQUE R Primary Care Unavailable MASCI, AGUSTO A Referring Unavailable Jeffrey Ceron DO Unavailable Nia Jeffrey Attending Unavailable Brown, Monique R Referring Unavailable Brown, Monique R Primary Care Unavailable Brown, Monique R Attending Unavailable Brown, Monique R Referring Unavailable Brown, Monique R Primary Care Unavailable Brown, Monique R Referring Unavailable Brown, Monique R Primary Care Unavailable Brown, Monique R Attending Unavailable Brown, Monique R Referring Unavailable Brown, Monique R Primary Care Unavailable Brown, Monique R Attending Unavailable Brown, Monique R Referring Unavailable Brown, Monique R Primary Care Unavailable Brown, Monique R Attending Unavailable Brown, Monique R Referring Unavailable Brown, Monique R Primary Care Unavailable Brown, Monique R Attending Unavailable Nia Jeffrey Attending Unavailable Nia Jeffrey Referring Unavailable Brown, Monique R Primary Care Unavailable Brown, Monique R Attending Unavailable Brown, Monique R Referring Unavailable Brown, Monique R Primary Care Unavailable MARIS ALEXANDRE Attending Unavailable BROWN, MONIQUE R Referring Unavailable BROWN, MONIQUE R Primary Care Unavailable Allergies Allergy Classification Reported Allergen(s) Allergy Type Date of Onset Reaction(s) Facility (20 sources) Dextromethorphan / guaiFENesin / Pseudoephedrine; Translations: [PSEUDOEPHEDRINE-DM -GUAIFENESIN] Drug Allergy 08-24-19 07 Intolerance, Other: See Comments [facility] Work Phone: (20 sources) diphenhydrAMINE; Translations: [DIPHENHYDRAMINE] Drug Allergy 08-24-19 07 Intolerance, Other: See Comments [facility] Work Phone: (20 sources) Erythromycin; Translations: [ERYTHROMYCIN] Drug Allergy 08-24-19 07 Hives, [facility] Work Phone: (20 sources) Latex; Translations: [LATEX] Propensity to adverse reactions 05-17-20 07 [facility] (20 sources) Morphine; Translations: [MORPHINE] Drug Allergy 12-13-19 08 [facility] (20 sources) Penicillins; Translations: [PENICILLINS] Drug Intolerance 03-11-20 21 [facility] (20 sources) Adhesive Tape-Silicones; Translations: [ADHESIVE TAPE-SILICONES] Drug Allergy 04-04-20 Other: See [facility] Work Phone: (3 sources) HYDROcodone Drug Allergy 04-29-20 21 [facility] (4 sources) Penicillins Allergy to substance 03-10-20 22 [facility] (17 sources) Penicillins Drug Allergy 03-11-20 21 [facility] (4 sources) Adhesive Tape; Translations: [adhesive tape] Allergy to substance 04-21-20 22 [facility] (1 source) Erythromycin Drug Allergy 07-12-19 [facility] (1 source) Latex Drug allergy (disorder) 07-12-19 [facility] (1 source) Morphine Drug Allergy 07-12-19 [facility] (1 source) Penicillins Drug allergy (disorder) 07-12-19 [facility] (1 source) Penicillins Drug Allergy 03-11-20 21 Hives [facility] Medications Current Medications Medication Drug Class(es) Dates Sig (Normalized) Sig (Original) diclofenac sodium 0.01 mg/mg topical gel (2 sources) Nonsteroidal Anti-inflammatory Drug Start: 09-09-2022 Diclofenac Sodium (Arthritis Pain (Diclofenac)) 1 % gel Active 2 GM TOPICAL THREE TIMES A DAY September 09, 2022 12:00am apply to single elbow, wrist or hand; for hand includes palm/fingers/back of hand doxycycline monohydrate 100 mg oral capsule (8 sources) Tetracycline-class Drug Start: 04-29-2021 End: 05-09-2021 take 1 capsule by mouth twice daily doxycycline monohydrate (MONODOX) 100 mg capsule Take 1 capsule by mouth twice daily for 10 days. 20 capsule 0 04/29/2021 05/09/2021 Active Start: 04-11-2021 End: 04-21-2021 take 1 capsule by mouth twice daily doxycycline hyclate (VIBRAMYCIN) 100 mg capsule Take 1 capsule by mouth twice daily for 10 days. 20 capsule 0 04/11/2021 04/21/2021 Active Comment on above: Take 1 capsule by [facility] twice daily for 10 days. enteric contrast (will be provided with radiology test) (5 sources) Start: 03-15-2024 End: 03-16-2024 enteric contrast (will be provided with radiology test) Indications: Malignant neoplasm of overlapping sites of left breast in female, estrogen receptor positive (HCC) , Lung nodules , Malignant neoplasm of female breast, unspecified estrogen receptor status, unspecified laterality, unspecified site of breast (HCC) For CT ABD/PEL W IVCON Routine order Administer, As Directed One Time Only, via Oral, Rectal, both Oral and Rectal, Enteric Tube, Stoma or Indwelling Catheter, Enteric Contrast as designated per enteric contrast guidelines 1 Each 03/15/2024 03/16/2024 Active Start: 09-06-2023 End: 09-07-2023 enteric contrast (will be pr ovided with radiology test) Indications: Malignant neoplasm of overlapping sites of left breast in female, estrogen receptor positive (HCC) For CT CHESTABD/PEL W IVCON Routine order Administer, As Directed One Time Only, via Oral, Rectal, both Oral and Rectal, Enteric Tube, Stoma or Indwelling Catheter, Enteric Contrast as designated per enteric contrast guidelines 1 Each 0 09/06/2023 09/07/2023 Active Start: 02-12-2023 End: 02-13-2023 enteric contrast (will be pr ovided with radiology test) Indications: Malignant neoplasm of overlapping sites of left breast in female, estrogen receptor positive (HCC) , 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 from neoplasm of breast determined by histopathologic examination (pN1a) (HCC) For CT CHESTABD/PEL W IVCON Routine order Administer, As Directed One Time Only, via Oral, Rectal, both Oral and Rectal, Enteric Tube, Stoma or Indwelling Catheter, Enteric Contrast as designated per enteric contrast guidelines 1 Each 0 02/12/2023 02/13/2023 Start: 04-08-2022 End: 04-09-2022 enteric contrast (will be pr ovided with radiology test) Indications: Malignant neoplasm of overlapping sites of left breast in female, estrogen receptor positive (HCC) , 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 from neoplasm of breast determined by histopathologic examination (pN1a) (HCC) For CT CHESTABD/PEL W IVCON Routine order Administer, As Directed One Time Only, via Oral, Rectal, both Oral and Rectal, Enteric Tube, Stoma or Indwelling Catheter, Enteric Contrast as designated per enteric contrast guidelines 1 Each 0 04/08/2022 04/09/2022 Active Comment on above: For CT CHESTABD/PEL W IVCON Routine order Administer, As Directed One Time Only, via Oral, Rectal, both Oral and Rectal, Enteric Tube, Stoma or Indwelling Catheter, Enteric Contrast as designated per enteric contrast guidelines ferrous sulfate 325 mg oral tablet (2 sources) Start: 3 take 325 mg by mouth once daily Ferrous Sulfate Active 325 MG PO DAILY March 11, 2023 12:00am gabapentin 100 mg oral capsule (20 sources) Anti-epileptic Agent Start: 3 End: gabapentin (NEURONTIN) 100 mg capsule Indications: Nerve pain , Malignant neoplasm of overlapping sites of left breast in female, estrogen receptor positive (HCC) , 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 Add 100 mg by mouth at bedtime to current dose. 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 Add 100 mg by mouth at bedtime to current dose. 90 capsule 0 12/17/2022 03/17/2023 Active Start: 03-10-2022 End: 09-07-2023 take 600 mg by mouth three times daily Gabapentin Active 600 MG PO THREE TIMES A DAY 180 September 07, 2023 8:38am Start: 09-15-2021 End: 12-17-2022 take 2 capsules by mouth three times daily gabapentin (NEURONTIN) 300 mg capsule Take 2 capsules by mouth three times daily for 30 days. 180 capsule 3 10/06/2021 12/17/2022 Discontinued Start: 08-27-2021 End: 03-10-2022 take 300 mg by mouth once daily Gabapentin Discontinued 300 MG PO DAILY August 27, 2021 12:00am March 10, 2022 4:34pm Start: 08-11-2021 End: 09-15-2021 take 1 capsule by mouth three times daily gabapentin (NEURONTIN) 300 mg capsule Take 1 capsule by mouth three times daily for 30 days. Take on pill at night before taking medication during the day. If it makes you sleepy or lightheaded do not take during the day and call the office to adjust dosing. 90 capsule 2 08/11/2021 09/15/2021 Discontinued Comment on above: Take 2 capsules by m outh three times daily for 30 days. Take 1 capsule by mo uth three times daily for 30 days. Take on pill at night before taking medication during the day. If it makes you sleepy or lightheaded do not take during the day and call the office to adjust dosing. Take 1 capsule by mo uth once daily for 30 days. Add 100 mg by mouth at bedtime to current dose. Take 1 capsule by mo uth three times daily for 120 days. Take 1 capsule by mo uth once daily for 90 days. Add 100 mg by mouth at bedtime to current dose. hydroCHLOROthiazide 25 mg oral tablet (20 sources) Thiazide Diuretic Start: 2021 End: 2023 take 1 tablet by mouth once daily hydroCHLOROthiazide 25 mg tablet Take 25 mg by mouth once daily. 08/24/2022 Active Comment on above: TAKE 1 TABLET BY KRISTYN TH IN THE MORNING FOR HYPERTENSION Take 25 mg by mouth once daily. hydroCHLOROthiazide 12.5 mg / lisinopril 10 mg oral tablet (20 sources) Thiazide Diuretic, Angiotensin Converting Enzyme Inhibitor Start: 2020 take 10-12.5 mg by mouth once lisinopril-hydroCHLOROth iazide (PRINZIDE,ZESTORETIC) 10-12.5 mg per tablet Take 1 tablet by mouth once daily. 03/05/2021 Active Start: 10-05-2017 End: 08-27-2021 take 1 tablet by mouth once daily Lisinopril-Hydrochlorothiazide Discontin ued 1 TABLET PO daily June 04, 2021 10:58am June 17, 2021 11:34am Comment on above: Take 10 tablets by m outh one time only. Take 1 tablet by kristyn th once daily. iv contrast (will be provided with radiology test) (6 sources) Start: 03-15-2024 End: 03-16-2024 iv contrast (will be provided with radiology test) Indications: Malignant neoplasm of overlapping sites of left breast in female, estrogen receptor positive (HCC) , Lung nodules , Malignant neoplasm of female breast, unspecified estrogen receptor status, unspecified laterality, unspecified site of breast (HCC) CT ABD/PEL -Inject, intravenously, once for 1 dose.No IV access, insert saline lock prior to the beginning of sedation, infusion, injection of imaging exam. Discontinue saline lock post exam. If Pt. has a central line or IVAD, may access for administration according to line specific nursing protocol. Once exam is complete flush line and de-access according to line specific nursing protocol in the CT contrast administration guidelines link. 1 Each 03/15/2024 03/16/2024 Active Start: 03-15-2024 End: 03-16-2024 iv contrast (will be provide d with radiology test) Indications: Malignant neoplasm of overlapping sites of left breast in female, estrogen receptor positive (HCC) , Lung nodules , Malignant neoplasm of female breast, unspecified estrogen receptor status, unspecified laterality, unspecified site of breast (HCC) CT Chest W -Inject, intravenously, once for 1 dose.No IV access, insert saline lock prior to the beginning of sedation, infusion, injection of imaging exam. Discontinue saline lock post exam. If Pt. has a central line or IVAD, may access for administration according to line specific nursing protocol. Once exam is complete flush line and de-access according to line specific nursing protocol in the CT contrast administration guidelines link. 1 Each 03/15/2024 03/16/2024 Active Start: 09-06-2023 End: 09-07-2023 iv contrast (will be provide d with radiology test) Indications: Malignant neoplasm of overlapping sites of left breast in female, estrogen receptor positive (HCC) CT Chest ABD/PEL-Inject, intravenously, once for 1 dose.No IV access, insert saline lock prior to the beginning of sedation, infusion, injection of imaging exam. Discontinue saline lock post exam. If Pt. has a central line or IVAD, may access for administration according to line specific nursing protocol. Once exam is complete flush line and de-access according to line specific nursing protocol in the CT contrast administration guidelines link. 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 Discontinue saline lock post exam. If Pt. has a central line or IVAD, may access for administration according to line specific nursing protocol. Once exam is complete flush line and de-access according to line specific nursing protocol in the CT contrast administration guidelines link. 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 Discontinue saline lock post exam. If Pt. has a central line or IVAD, may access for administration according to line specific nursing protocol. Once exam is complete flush line and de-access according to line specific nursing protocol in the CT contrast administration guidelines link. 1 Each 0 04/08/2022 04/09/2022 Active Comment on above: CT Chest ABD/PEL-Inj ect, intravenously, once for 1 dose.No IV access, insert saline lock prior to the beginning of sedation, infusion, injection of imaging exam. Discontinue saline lock post exam. If Pt. has a central line or IVAD, may access for administration according to line specific nursing protocol. Once exam is complete flush line and de-access according to line specific nursing protocol in the CT contrast administration guidelines link. levoFLOXacin 500 mg oral tablet (4 sources) Quinolone Antimicrobial Start: 04-29-20 End: 05-06-20 21 take 1 tablet by mouth once daily levoFLOXacin (LEVAQUIN) 500 mg tablet Take 1 tablet by mouth once daily for 7 days. 7 tablet 0 04/29/2021 05/06/2021 Active Comment on above: Take 1 tablet by kristyn th once daily for 7 days. levothyroxine sodium 0.15 mg oral tablet (20 sources) l-Thyroxine Start: 02-27-20 take 1 tablet by mouth once daily levothyroxine (SYNTHROID) 150 mcg tablet Take 1 tablet by mouth once daily. 02/27/2024 Active Start: 10-05-2017 End: 08-30-2023 take 1 tablet by mouth once daily Levothyroxine (Synthroid) 150 mcg tablet Active 150 MCG PO daily August 30, 2023 2:57pm Start: 01-23-2008 levothyroxine sodium(SYNTHROID 125 MCG TAB) Take one(1) tablet daily. 30 5 01/23/2008 Active Comment on above: Take one(1) tablet d aily. lisinopril 40 mg oral tablet (12 sources) Angiotensin Converting Enzyme Inhibitor Start: 08-27-2021 End: 08-30-2023 take 40 mg by mouth once daily Lisinopril Active 40 MG PO DAILY August 30, 2023 2:57pm Completed/Discontinued Medications Medication Drug Class(es) Dates Sig (Normalized) Sig (Original) ALPRAZolam 0.25 mg oral tablet (20 sources) Benzodiazepine Start: 10-05-2017 End: 09-23-2023 take 0.25 mg by mouth three times daily Alprazolam Discontinued 0.25 MG PO THREE TIMES A DAY August 24, 2023 9:33am September 23, 2023 12:06am Comment on above: Take 0.25 mg by mout h three times daily as needed. amLODIPine 10 mg oral tablet (4 sources) Dihydropyridine Calcium Channel Stuart Start: 09-17-2021 End: 03-10-2022 take 10 mg by mouth once daily Amlodipine Discontinued 10 MG PO DAILY September 17, 2021 12:00am March 10, 2022 4:32pm anastrozole 1 mg oral tablet (4 sources) Aromatase Inhibitor Start: 07-03-2021 End: 08-27-2021 take 1 mg by mouth once daily Anastrozole Discontinued 1 MG PO DAILY July 03, 2021 1:00am August 27, 2021 8:07am ciprofloxacin 500 mg oral tablet (1 source) Quinolone Antimicrobial Start: 04-29-2021 End: 04-29-2021 take 1 tablet by mouth twice daily ciprofloxacin HCl (CIPRO) 500 mg tablet Take 1 tablet by mouth twice daily for 10 days. 20 tablet 0 04/29/2021 04/29/2021 Discontinued Comment on above: Take 1 tablet by kristyn th twice daily for 10 days. codeine phosphate 2 mg/ml / promethazine hydrochloride 1.25 mg/ml oral solution (6 sources) Opioid Agonist, Phenothiazine Start: 07-20-2023 End: 07-21-2023 take 1 mL by mouth every four to six hours Promethazine-Codein e Discontinued 5 ML PO EVERY 4-6 HOURS 473 July 20, 2023 5:54pm July 21, 2023 1:01pm cyclobenzaprine hydrochloride 5 mg oral tablet (15 sources) Muscle Relaxant Start: 09-15-2021 End: 04-08-2022 take 1 tablet by mouth once daily at bedtime cyclobenzaprine (FLEXERIL) 5 mg tablet Take 1 tablet by mouth daily at bedtime. 20 tablet 0 09/15/2021 04/08/2022 Discontinued Start: 04-11-2021 End: 04-22-2021 take 1 tablet by mouth every eight hours as needed cyclobenzaprine (FLEXERIL) 10 mg tablet Take 1 tablet by mouth three times daily as needed for muscle spasm. 20 tablet 0 04/22/2021 Active Comment on above: Take 1 tablet by kristyn th three times daily as needed for muscle spasm. Take 1 tablet by kristyn th daily at bedtime. fluconazole 150 mg oral tablet (4 sources) Azole Antifungal Start: End: Fluconazole (Diflucan) 150 mg tablet Discontinued 150 MG PO Every 3 Days 2 May 07, 2021 1:00am August 27, 2021 8:07am hydrocortisone 10 mg/ml topical lotion (7 sources) Corticosteroid Start: hydrocortisone (CORTISONE, HYDROCORTISONE,) 1 % lotion Apply to affected area twice daily. 99 g 3 04/22/2021 Active Comment on above: Apply to affected ar ea twice daily. letrozole 2.5 mg oral tablet (3 sources) Aromatase Inhibitor Start: End: take 1 tablet by mouth once daily letrozole (FEMARA) 2.5 mg tablet Take 1 tablet by mouth once daily. 30 tablet 5 08/05/2021 04/08/2022 Discontinued Comment on above: Take 1 tablet by kristyn th once daily. lidocaine 25 mg/ml / prilocaine 25 mg/ml topical cream (12 sources) Antiarrhythmic, Amide Local Anesthetic Start: lidocaine-prilocaine (EMLA) 2.5-2.5 % cream Apply 1 application to affected area as needed. 0 03/19/2021 Active Start: 03-19-2021 End: 03-19-2021 lidocaine-prilocaine (EMLA) 2.5-2.5 % cream Apply 1 application to affected area one time only for 1 dose. 30 g 0 03/19/2021 03/19/2021 Active Comment on above: Apply 1 application to affected area one time only for 1 dose. Apply 1 application to affected area as needed. oxyCODONE hydrochloride 5 mg oral tablet (11 sources) Opioid Agonist Start: 04-11-20 End: 04-29-20 take 1 tablet by mouth every six hours as needed oxyCODONE IR (ROXICODONE) 5 mg immediate release tablet Indications: Malignant neoplasm of overlapping sites of left breast in female, estrogen receptor positive (HCC) Take 1-2 tablets by mouth every 6 hours as needed for pain for up to 7 days. 28 tablet 0 04/22/2021 04/29/2021 Comment on above: Take 1 tablet by kristyn th every 6 hours as needed for pain. Take 1 tablet by kristyn th every 6 hours as needed for pain for up to 7 days. Take 1-2 tablets by mouth every 6 hours as needed for pain for up to 7 days. rizatriptan 10 mg disintegrating oral tablet (17 sources) Serotonin-1b and Serotonin-1d Receptor Agonist Start: 11-17-19 18 End: 04-27-20 19 take 1 tablet by mouth every two hours Rizatriptan (Maxalt-Scrub Nurse) 10 mg tablet,disintegratin g Discontinued 10 MG PO Q2H 3 November 29, 2018 3:05pm April 27, 2019 9:42am Start: 10-05-2017 End: 11-16-2017 take 1 tablet by mouth once Rizatriptan (Maxalt-Scrub Nurse) 10 mg tablet,disintegrating Discontinued 10 MG PO ONCE October 05, 2017 12:00am November 16, 2017 3:13pm Start: 08-23-2006 End: 03-11-2021 MAXALT 10 MG TAB as necessar y 0 08/23/2006 03/11/2021 Discontinued (Course of therapy completed) Comment on above: as necessary silver sulfADIAZINE 10 mg/ml topical cream (6 sources) Sulfonamide Antibacterial Start: 1 silver sulfADIAZINE (SILVADENE) 1 % cream Apply to affected area twice daily. 50 g 0 03/11/2021 Active Comment on above: Apply to affected ar ea twice daily. 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 90 tablet 3 05/12/2022 11/13/2022 Discontinued Comment on above: Take 1 tablet (20 mg ) by mouth once daily. temazepam 30 mg oral capsule (1 source) Benzodiazepine Start: 08-24-19 End: 03-11-20 21 temazepam(RESTORIL 30 MG CAP) Take one(1) tablet daily at bedtime. 0 08/24/2007 03/11/2021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 control(AEC) and iterative recon COMPARISON: 03/04/2023 RESULT: Lower thorax: Please refer to the accompanying chest CT, which is reported separately. Liver: Moderate fatty liver. No mass. Biliary: Gallbladder is nondistended. No biliary duct dilatation. Spleen: No mass. No splenomegaly. Pancreas: No mass or ductal dilatation. Adrenal glands: Unremarkable. Kidneys: Stable, subcentimeter right renal hypodensity, too small to reliably characterize, most likely benign. Attention on follow-up recommended. No solid, enhancing mass or hydronephrosis in either kidney. Vascular: Normal caliber abdominal aorta with mild aortoiliac atherosclerotic disease. GI tract: No dilation or wall thickening. Normal appendix. Pelvis: No mass, fluid or collection. Unremarkable urinary bladder and uterus. Lymph nodes: No abdominal or pelvic lymphadenopathy, by size criteria. Mesentery/Peritoneum/Re troperitoneum: No ascites, pneumoperitoneum or suspicious mass. Soft Tissues/Bones: No destructive osseous lesions. Stable small moderate sized fat-containing umbilical hernia.. IMPRESSION: Stable exam. No evidence for abdominal pelvic metastatic disease. Diffuse hepatic steatosis. [facility]: [facility] Transcribe Date/Time: Mar 08 2024 2:59P Dictated by : PIYUSH DRAKE MD This examination was interpreted and the report reviewed and electronically signed by: PIYUSH DRAKE MD on Mar 08 2024 3:03PM EST [id number] Normal [facility] CT Abdomen and Pelvis W cont rast Angelina 03-08-2024 IMPRESSION: Stable exam. No evidence for abdominal pelvic metastatic disease. Diffuse hepatic steatosis. [facility]: [facility] Transcribe Date/Time: Mar 08 2024 2:59P Dictated by : PIYUSH DRAKE MD This examination was interpreted and the report reviewed and electronically signed by: PIYUSH DRAKE MD on Mar 08 2024 3:03PM EST DIVISION OF RADIOLOGY * * *Final Report* * * DATE OF EXAM: Mar 08 2024 9:44AM [facility] 0530 - CT ABD/PEL W IVCON / PROCEDURE REASON: multiple diagnoses * * * * Physician Interpretation * * * * EXAMINATION: CT ABD/PEL W IVCON CLINICAL HISTORY: Malignant neoplasm of overlapping sites of left breast in female, estrogen receptor positive (HCC) Malignant neoplasm of overlapping sites of left breast in female, estrogen receptor positive (HCC) TECHNIQUE: CT of the abdomen and pelvis was performed using standard technique, scanning from just above the dome of the diaphragm to the symphysis pubis. Contrast: IV: 100 ml of Omnipaque 350 Oral: 10 ml of Omni 240 10-25ml diluted with water Dose-Length Product (DLP): 1512 mGy*cm CT Dose Reduction Employed: Automated exposure control(AEC) and iterative recon COMPARISON: 03/04/2023 RESULT: Lower thorax: Please refer to the accompanying chest CT, which is reported separately. Liver: Moderate fatty liver. No mass. Biliary: Gallbladder is nondistended. No biliary duct dilatation. Spleen: No mass. No splenomegaly. Pancreas: No mass or ductal dilatation. Adrenal glands: Unremarkable. Kidneys: Stable, subcentimeter right renal hypodensity, too small to reliably characterize, most likely benign. Attention on follow-up recommended. No solid, enhancing mass or hydronephrosis in either kidney. Vascular: Normal caliber abdominal aorta with mild aortoiliac atherosclerotic disease. GI tract: No dilation or wall thickening. Normal appendix. Pelvis: No mass, fluid or collection. Unremarkable urinary bladder and uterus. Lymph nodes: No abdominal or pelvic lymphadenopathy, by size criteria. Mesentery/Peritoneum/Re troperitoneum: No ascites, pneumoperitoneum or suspicious mass. Soft Tissues/Bones: No destructive osseous lesions. Stable small moderate sized fat-containing umbilical hernia.. DIVISION OF RADIOLOGY Provider, [facility] - 03/08/2024 * * *Final Report* * * DATE OF EXAM: Mar 08 2024 9:44AM [facility] 0530 - CT ABD/PEL W IVCON / PROCEDURE REASON: multiple diagnoses * * * * Physician Interpretation * * * * EXAMINATION: CT ABD/PEL W IVCON CLINICAL HISTORY: Malignant neoplasm of overlapping sites of left breast in female, estrogen receptor positive (HCC) Malignant neoplasm of overlapping sites of left breast in female, estrogen receptor positive (HCC) TECHNIQUE: CT of the abdomen and pelvis was performed using standard technique, scanning from just above the dome of the diaphragm to the symphysis pubis. Contrast: IV: 100 ml of Omnipaque 350 Oral: 10 ml of Omni 240 10-25ml diluted with water Dose-Length Product (DLP): 1512 mGy*cm CT Dose Reduction Employed: Automated exposure control(AEC) and iterative recon COMPARISON: 03/04/2023 RESULT: Lower thorax: Please refer to the accompanying chest CT, which is reported separately. Liver: Moderate fatty liver. No mass. Biliary: Gallbladder is nondistended. No biliary duct dilatation. Spleen: No mass. No splenomegaly. Pancreas: No mass or ductal dilatation. Adrenal glands: Unremarkable. Kidneys: Stable, subcentimeter right renal hypodensity, too small to reliably characterize, most likely benign. Attention on follow-up recommended. No solid, enhancing mass or hydronephrosis in either kidney. Vascular: Normal caliber abdominal aorta with mild aortoiliac atherosclerotic disease. GI tract: No dilation or wall thickening. Normal appendix. Pelvis: No mass, fluid or collection. Unremarkable urinary bladder and uterus. Lymph nodes: No abdominal or pelvic lymphadenopathy, by size criteria. Mesentery/Peritoneum/Re troperitoneum: No ascites, pneumoperitoneum or suspicious mass. Soft Tissues/Bones: No destructive osseous lesions. Stable small moderate sized fat-containing umbilical hernia.. IMPRESSION IMPRESSION: Stable exam. No evidence for abdominal pelvic metastatic disease. Diffuse hepatic steatosis. [facility] [employer] [facility]: [facility] Transcribe Date/Time: Mar 08 2024 2:59P Dictated by : PIYUSH DRAKE MD This examination was interpreted and the report reviewed and electronically signed by: PIYUSH DRAKE MD on Mar 08 2024 3:03PM EST [facility] CT Abdomen and Pelvis W cont rast IVOrdered By: [facility] Provider on 03-08-[address] [facility] [address] CHEST W IVCONon CT CHEST W IVCON * * *Final Report* * * DATE OF EXAM: Mar 08 2024 9:44AM [facility] 0539 - CT CHEST W IVCON / PROCEDURE REASON: multiple diagnoses * * * * Physician Interpretation * * * * EXAMINATION: CT CHEST W IVCON Exam Date/Time: 03/08/2024 9:44 AM CLINICAL HISTORY: Malignant neoplasm of overlapping sites of left breast in female, estrogen receptor positive (HCC) Malignant neoplasm of overlapping sites of left breast in female, estrogen receptor positive (HCC) TECHNIQUE: Spiral CT acquisition of the chest from the thoracic inlet to the upper abdomen following IV contrast. Contrast: 100 mL Omnipaque [address] Radiation dose: Integrated Dose-length product (DLP) for this visit = 1512 mGy*cm CT Dose Reduction Employed: Automated exposure control(AEC) and iterative recon COMPARISON: 03/04/2023 RESULT: Heart, pericardium, and thoracic vessels: The heart and great vessels are within normal size limits. No pericardial effusion. Lower neck, lymph nodes, and mediastinum: No suspicious mediastinal abnormality. No evidence for thoracic lymphadenopathy, by size criteria. Visualized thyroid gland is unremarkable. Lung parenchyma, pleural space and airways: Stable tiny lung nodules. For example, 2 mm subpleural focus in the lingula (axial image 99). Stable 3 mm juxtapleural left lower lobe nodule (axial image 86). No new or enlarging nodules identified in either lung. No consolidation or infiltrate. No pleural effusions or pneumothorax. Patent central airways. Upper abdomen: Please refer to the accompanying abdomen/pelvis CT, which is reported separately. Bones/Soft tissues: No destructive osseous lesions. Stable surgical changes in the left axilla and both breasts. No axillary, subpectoral or internal mammary chain lymphadenopathy. IMPRESSION: Stable exam without convincing evidence for metastatic disease in the chest. Stable tiny lung nodules, probably benign. Recommend continued attention on follow-up. [facility]: [facility] Transcribe Date/Time: Mar 08 2024 3:03P Dictated by : PIYUSH DRAKE MD This examination was interpreted and the report reviewed and electronically signed by: PIYUSH DRAKE MD on Mar 08 2024 3:32PM EST [id number] Normal [facility] CT Chest W contrast Angelina IMPRESSION: Stable exam without convincing evidence for metastatic disease in the chest. Stable tiny lung nodules, probably benign. Recommend continued attention on follow-up. [facility]: [facility] Transcribe Date/Time: Mar 08 2024 3:03P Dictated by : PIYUSH DRAKE MD This examination was interpreted and the report reviewed and electronically signed by: PIYUSH DRAKE MD on Mar 08 2024 3:32PM EST DIVISION OF RADIOLOGY * * *Final Report* * * DATE OF EXAM: Mar 08 2024 9:44AM [facility] 0539 - CT CHEST W IVCON / PROCEDURE REASON: multiple diagnoses * * * * Physician Interpretation * * * * EXAMINATION: CT CHEST W IVCON Exam Date/Time: 03/08/2024 9:44 AM CLINICAL HISTORY: Malignant neoplasm of overlapping sites of left breast in female, estrogen receptor positive (HCC) Malignant neoplasm of overlapping sites of left breast in female, estrogen receptor positive (HCC) TECHNIQUE: Spiral CT acquisition of the chest from the thoracic inlet to the upper abdomen following IV contrast. Contrast: 100 mL Omnipaque [address] Radiation dose: Integrated Dose-length product (DLP) for this visit = 1512 mGy*cm CT Dose Reduction Employed: Automated exposure control(AEC) and iterative recon COMPARISON: 03/04/2023 RESULT: Heart, pericardium, and thoracic vessels: The heart and great vessels are within normal size limits. No pericardial effusion. Lower neck, lymph nodes, and mediastinum: No suspicious mediastinal abnormality. No evidence for thoracic lymphadenopathy, by size criteria. Visualized thyroid gland is unremarkable. Lung parenchyma, pleural space and airways: Stable tiny lung nodules. For example, 2 mm subpleural focus in the lingula (axial image 99). Stable 3 mm juxtapleural left lower lobe nodule (axial image 86). No new or enlarging nodules identified in either lung. No consolidation or infiltrate. No pleural effusions or pneumothorax. Patent central airways. Upper abdomen: Please refer to the accompanying abdomen/pelvis CT, which is reported separately. Bones/Soft tissues: No destructive osseous lesions. Stable surgical changes in the left axilla and both breasts. No axillary, subpectoral or internal mammary chain lymphadenopathy. DIVISION OF RADIOLOGY Provider, [facility] - 03/08/2024 * * *Final Report* * * DATE OF EXAM: Mar 08 2024 9:44AM [facility] 0539 - CT CHEST W IVCON / PROCEDURE REASON: multiple diagnoses * * * * Physician Interpretation * * * * EXAMINATION: CT CHEST W IVCON Exam Date/Time: 03/08/2024 9:44 AM CLINICAL HISTORY: Malignant neoplasm of overlapping sites of left breast in female, estrogen receptor positive (HCC) Malignant neoplasm of overlapping sites of left breast in female, estrogen receptor positive (HCC) TECHNIQUE: Spiral CT acquisition of the chest from the thoracic inlet to the upper abdomen following IV contrast. Contrast: 100 mL Omnipaque [address] Radiation dose: Integrated Dose-length product (DLP) for this visit = 1512 mGy*cm CT Dose Reduction Employed: Automated exposure control(AEC) and iterative recon COMPARISON: 03/04/2023 RESULT: Heart, pericardium, and thoracic vessels: The heart and great vessels are within normal size limits. No pericardial effusion. Lower neck, lymph nodes, and mediastinum: No suspicious mediastinal abnormality. No evidence for thoracic lymphadenopathy, by size criteria. Visualized thyroid gland is unremarkable. Lung parenchyma, pleural space and airways: Stable tiny lung nodules. For example, 2 mm subpleural focus in the lingula (axial image 99). Stable 3 mm juxtapleural left lower lobe nodule (axial image 86). No new or enlarging nodules identified in either lung. No consolidation or infiltrate. No pleural effusions or pneumothorax. Patent central airways. Upper abdomen: Please refer to the accompanying abdomen/pelvis CT, which is reported separately. Bones/Soft tissues: No destructive osseous lesions. Stable surgical changes in the left axilla and both breasts. No axillary, subpectoral or internal mammary chain lymphadenopathy. IMPRESSION IMPRESSION: Stable exam without convincing evidence for metastatic disease in the chest. Stable tiny lung nodules, probably benign. Recommend continued attention on follow-up. [facility]: [facility] Transcribe Date/Time: Mar 08 2024 3:03P Dictated by : PIYUSH DRAKE MD This examination was interpreted and the report reviewed and electronically signed by: PIYUSH DRAKE MD on Mar 08 2024 3:32PM EST [facility] Comprehensive metabolic 2000 panelon 03-08-2024 Albumin [Mass/Vol] 4.0 g/dL Normal 3.9-4.9 [facility] Comment on above: Order Comment: Speci men Type: BLOOD SPECIMEN Ordering Facility: [facility] Address: [address] [place] [address] Performed By: #### 2 4323-8 #### [facility] CLIA [id number] [address] [place] [address] [place] ALP [Catalytic activity/Vol] 62 U/L Normal 34-123 [facility] Comment on above: Order Comment: Speci men Type: BLOOD SPECIMEN Ordering Facility: [facility] Address: [address] [place] [address] Performed By: #### 2 4323-8 #### [facility] CLIA [id number] [address] [place] [address] [place] ALT [Catalytic activity/Vol] 18 U/L Normal 7-38 [facility] Comment on above: Order Comment: Speci men Type: BLOOD SPECIMEN Ordering Facility: [facility] Address: [address] [place] [address] Performed By: #### 2 4323-8 #### [facility] CLIA [id number] [address] [place] [address] [place] Anion gap [Moles/Vol] 11 mmol/L Normal 8-15 [facility] Comment on above: Order Comment: Speci men Type: BLOOD SPECIMEN Ordering Facility: [facility] Address: [address] [place] [address] Performed By: #### 2 4323-8 #### [facility] CLIA [id number] [address] [place] [address] [place] AST [Catalytic activity/Vol] 18 U/L Normal 13-35 [facility] Comment on above: Order Comment: Speci men Type: BLOOD SPECIMEN Ordering Facility: [facility] Address: [address] [place] [address] Performed By: #### 2 4323-8 #### [facility] CLIA [id number] [address] [place] [address] [place] Bilirubin [Mass/Vol] 0.4 mg/dL Normal 0.2-1.3 [facility] Comment on above: Order Comment: Speci men Type: BLOOD SPECIMEN Ordering Facility: [facility] Address: [address] [place], [place] [id number] Performed By: #### 2 4323-8 #### [facility] CLIA [id number] [address] [place] [address] [place] Calcium [Mass/Vol] 9.3 mg/dL Normal 8.5-10.2 [facility] Comment on above: Order Comment: Speci men Type: BLOOD SPECIMEN Ordering Facility: [facility] Address: [address] [place] [address] Performed By: #### 2 4323-8 #### [facility] CLIA [id number] [address] [place] [address] [place] Chloride [Moles/Vol] 105 mmol/L Normal 98-107 [facility] Comment on above: Order Comment: Speci men Type: BLOOD SPECIMEN Ordering Facility: [facility] Address: [address] [place], [place] [id number] Performed By: #### 2 4323-8 #### [id number] [address] [place] [address] [place] CO2 [Moles/Vol] 24 mmol/L Normal 22-30 [facility] Comment on above: Order Comment: Speci men Type: BLOOD SPECIMEN Ordering Facility: [facility] Address: [address] [place] [address] Performed By: #### 2 4323-8 #### [facility] [id number] [address] [place] [address] [place] Creatinine [Mass/Vol] 0.68 mg/dL Normal 0.58-0.96 [facility] Comment on above: Order Comment: Speci men Type: BLOOD SPECIMEN Ordering Facility: [facility] Address: [address] [place] [address] Performed By: #### 2 4323-8 #### [facility] [id number] [address] [place] [address] [facility] Creatinine and Glomerular filtration rate.predicted panel (S/P/Bld) 102 mL/min/1.73m??? Normal >=60 [facility] Comment on above: Order Comment: Speci men Type: BLOOD SPECIMEN Ordering Facility: [facility] Address: [address] [place] [address] Result Comment: Yeni mated Glomerular Filtration Rate (eGFR) is calculated using the 2020 CKD-EPI creatinine equation. This equation utilizes serum creatinine, sex, and age as parameters. The creatinine assay has traceable calibration to isotope dilution-mass spectrometry. Refer to KDIGO guidelines for clinical interpretation. In patients with unstable renal function, e.g. those with acute kidney injury, the eGFR may not accurately reflect actual GFR. Performed By: #### 2 4323-8 #### [id number] [address] [place] [address] [place] Glucose [Mass/Vol] 105 mg/dL High 74-99 [facility] Comment on above: Order Comment: Speci men Type: BLOOD SPECIMEN Ordering Facility: [facility] Address: [address] [place], [place] [id number] Result Comment: The [place] Diabetes Association (ADA) provides guidance for cutoff values for fasting glucose and random glucose. The ADA defines fasting as no caloric intake for at least 8 hours. Fasting plasma glucose results between 100 to 125 mg/dL indicate increased risk for diabetes (prediabetes). Fasting plasma glucose results greater than or equal to 126 mg/dL meet the criteria for diagnosis of diabetes. In the absence of unequivocal hyperglycemia, results should be confirmed by repeat testing. In a patient with classic symptoms of hyperglycemia or hyperglycemic crisis, random plasma glucose results greater than or equal to 200 mg/dL meet the criteria for diagnosis of diabetes. Reference: Standards of Medical Care in Diabetes 2016, [place] [employer]. Diabetes Care. 2016.39(Suppl 1). Performed By: #### 2 4323-8 #### [facility] [id number] [address] [place] [address] [place] Potassium [Moles/Vol] 3.8 mmol/L Normal 3.7-5.1 [facility] Comment on above: Order Comment: Speci men Type: BLOOD SPECIMEN Ordering Facility: [facility] Address: [address] [place] [address] Performed By: #### 2 4323-8 #### [facility] [id number] [address] [place] [address] [place] Protein [Mass/Vol] 7.0 g/dL Normal 6.3-8.0 [facility] Comment on above: Order Comment: Zacki men Type: BLOOD SPECIMEN Ordering Facility: [facility] Address: [address] [place] [address] Performed By: #### 2 4323-8 #### [facility] [id number] [address] [place] [address] [place] Sodium [Moles/Vol] 140 mmol/L Normal 136-144 [facility] Comment on above: Order Comment: Speci men Type: BLOOD SPECIMEN Ordering Facility: [facility] Address: [address] [place] [address] Performed By: #### 2 4323-8 #### [facility] CLIA [id number] [address] [place] [address] [place] Urea nitrogen [Mass/Vol] 17 mg/dL Normal 7-21 [facility] Comment on above: Order Comment: Speci men Type: BLOOD SPECIMEN Ordering Facility: [facility] Address: [address] [place] [address] Performed By: #### 2 4323-8 #### [facility] [id number] [address] [place] [address] [place] No Panel Informationon 03-08 Radiology Study observation (narrative) [facility] Internal Medicine Office Vis iton 02-17-2024 Internal Medicine Office Visit [facility] [address] [place] [address] [place] [address] OFFICE VISIT Date of Service: 02/17/24 MR#: [id number] Acct: [id number] Name: SHIRA BAUTISTA Rep #: [id number] : 1970 Provider: Dr. Monique villeda, DO Age/Sex: 53/F Location: [facility] Status: Signed Intake Vital Signs 10/12/23 16:29 02/17/24 13:27 Height 5 ft 4 in 5 ft 4 in Weight: 277 lb 271 lb BMI 47.5 46.5 BP 122/78 H 138/88 H Blood Pressure Location Rt radial Lt brachial Position Sitting Sitting Respiration 16 17 Pulse 78 82 Pulse Source Monitor Monitor Temp 99.3 F H 97.8 F Temp Source Temporal Temporal Pulse Oximetry (%) 99 97 Oxygen Delivery Method room air room air Intake Visit Reasons: REDO MOLE FREEZING Chief Complaint: REDO MOLE FREEZING Is patient in pain?: Yes (10 right heel) Allergies Penicillins Allergy (Severe, Verified 02/17/24 13:28) Hives erythromycin base Allergy (Unknown, Verified 02/17/24 13:28) Unknown latex Allergy (Unknown, Verified 02/17/24 13:28) Unknown morphine Allergy (Unknown, Verified 02/17/24 13:28) Unknown adhesive tape Allergy (Verified 02/17/24 13:28) Rash Medications ???Medication ???Instructions ???Recorded ???Confirmed ???Type diclofenac sodium 1 % topical gel 2 g topical TID #100 grams 09/09/22 02/17/24 Rx (Arthritis Pain (diclofenac)) ferrous sulfate 325 mg (65 mg 325 mg PO DAILY 03/11/23 02/17/24 History iron) tablet hydrochlorothiazide 25 mg tablet 25 mg PO QAM HTN #90 tabs 08/30/23 02/17/24 Rx levothyroxine 150 mcg tablet 150 mcg PO QDAY #90 tabs 08/30/23 02/17/24 Rx (Synthroid) lisinopril 40 mg tablet 40 mg PO DAILY HTN #90 tabs 08/30/23 02/17/24 Rx gabapentin 300 mg capsule 600 mg (2 x 300 mg) PO TID #360 11/09/23 02/17/24 Rx caps alprazolam 0.25 mg tablet 0.25 mg PO TID PRN TIC/ OCD #30 01/07/24 02/17/24 Rx tabs Nurse's Note: pt reports that about 2 months ago that she started having right heel pain that is a 10 on 0-10 scale. pt feels it is not getting any better and is not aware of any injury that could be the cause of the pain [facility] Medical History Wears glasses OCD (obsessive compulsive disorder) Arthritis Migraine headache Injury of head and neck Marijuana smoker Breast cancer History of abnormal mammogram history of novasure Sleep disorder Hypothyroid Hypertension Anxiety Surgical History History of breast surgery History of mastectomy History of tubal ligation H/O umbilical hernia repair History of bilateral breast biopsy ( 02/2021) History of oral surgery History of surgery of head Family History Mother Hypertension Diabetes Colon polyps Grandmother Diabetes Social History adopted: No household members: none current occupational status: employed current occupation: [employer] Smoking Status: Former smoker how long ago did patient quit smokin alcohol intake: current alcohol intake frequency: a few times a month substance use type: does not use caffeine: No what type of physical activity do you participate in: walking seatbelt use: always HPI HPI Chief Complaint: REDO MOLE FREEZING Details: SHIRA BAUTISTA, is a 53 F who presents to the office today for several things originally one of them was refreezing some moles that came off only partially. The other was checking umbilical hernia she has and checking her heels because she is having severe heel pain. The heel pain is classic plantar fasciitis says it is severe in the morning when she first gets up and it eases off through the day. In addition she favors wearing sandals with virtually no arch support. ROS Const Constitutional: No body ache, chills, excessive sweating, fatigue, fever(s), frequent falls, headache(s), snoring, weight change, sleep problems, abnormal sleep pattern or change in appetite Eyes Eyes: No blurry vision, change in vision, eye pain or Light sensitivity ENT ENT: No abnormal hearing, ear or mastoid pain, tinnitus, nasal congestion, headache(s), neck pain or sore throat Resp Respiratory: No cough, shortness of breath, snoring or wheezing Cardio Cardiology: No chest pain at rest, chest pain with exertion, excessive sweating, shortness of breath, dyspnea on exertion, lightheadedness, orthopnea or palpitations Gastro GI: No abdominal pain, change in bowel habits, constipation, cramping, diarrhea, nausea/dyspepsia or vomiting Genitourinary-Female: No burning urination, painful urination, urinary incontinence, urinary frequency, abnormal vaginal bleeding or pelvic pain Musc Musculoskele (more content not included)... Normal [facility] Internal [facility] Office Vis andrea 10-12-2023 Internal Medicine Office Visit [facility] [place] [address] [place] [address] OFFICE VISIT Date of Service: 10/12/23 MR#: [id number] Acct: [id number] Name: SHIRA BAUTISTA Rep #: [id number] : 1970 Provider: Dr. 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: No Is patient in pain?: No Allergies Penicillins Allergy (Severe, Verified 10/12/23 16:25) Hives erythromycin base Allergy (Unknown, Verified 10/12/23 16:25) Unknown latex Allergy (Unknown, Verified 10/12/23 16:25) Unknown morphine Allergy (Unknown, Verified 10/12/23 16:25) Unknown adhesive tape Allergy (Verified 10/12/23 16:25) Rash Medications diclofenac sodium 1 % topical gel (Arthritis Pain (diclofenac)) 2 g topical TID #100 grams 09/09/22 [Rx Confirmed 10/12/23] ferrous sulfate 325 mg (65 mg iron) tablet 325 mg PO DAILY 03/11/23 [History Confirmed 10/12/23] promethazine 6.25 mg-codeine 10 mg/5 mL syrup 5 ml PO Q4-6H PRN cough #473 mL 07/21/23 [Rx Confirmed 10/12/23] hydrochlorothiazide 25 mg tablet 25 mg PO QAM HTN #90 tabs 08/30/23 [Rx Confirmed 10/12/23] levothyroxine 150 mcg tablet (Synthroid) 150 mcg PO QDAY #90 tabs 08/30/23 [Rx Confirmed 10/12/23] lisinopril 40 mg tablet 40 mg PO DAILY HTN #90 tabs 08/30/23 [Rx Confirmed 10/12/23] gabapentin 300 mg capsule 600 mg (2 x 300 mg) PO TID #180 caps 09/07/23 [Rx Confirmed 10/12/23] Nurse's Note: Here to get moles removed. Wants to discuss leg swelling. States it's not okay. Wants her hernia looked at she states that there is discomfort and she does not want a hernia removal but wants a US ordered to make sure nothing's going on. [facility] Medical History Anxiety Arthritis Breast cancer History of abnormal mammogram history of novasure Hypertension Hypothyroid Injury of head and neck Marijuana smoker Migraine headache OCD (obsessive compulsive disorder) Sleep disorder Wears glasses Surgical History H/O umbilical hernia repair History of bilateral breast biopsy ( 02/2021) History of breast surgery History of mastectomy History of oral surgery History of surgery of head History of tubal ligation Family History Mother Hypertension Diabetes Colon polyps Grandmother Diabetes Social History adopted: No household members: none current occupational status: employed current occupation: [employer] Smoking Status: Former smoker how long ago did patient quit smokin alcohol intake: current alcohol intake frequency: a few times a month substance use type: does not use caffeine: No what type of physical activity do you participate in: walking seatbelt use: always HPI HPI Chief Complaint: Removal of lesions Details: SHIRA BAUTISTA, is a 53 F who presents to the office today for removal of 3 skin lesions. They have been present for a long time, but she just wants to have them removed. One is on her right thigh one is on her abdomen and one is on her left cheek. ROS Const Constitutional: No body ache, chills, excessive sweating, fatigue, fever(s), frequent falls, headache(s), snoring, weakness, sleep problems or change in appetite Eyes Eyes: No blurry vision, change in vision, eye pain or Light sensitivity ENT ENT: No abnormal hearing, ear or mastoid pain, tinnitus, nasal congestion, headache(s), neck pain or sore throat Resp Respiratory: No cough, shortness of breath, snoring or wheezing Cardio Cardiology: No chest pain at rest, chest pain with exertion, excessive sweating, shortness of breath, dyspnea on exertion, lightheadedness, orthopnea or palpitations Gastro GI: No abdominal pain, change in bowel habits, constipation, cramping, diarrhea, nausea/dyspepsia or vomiting Genitourinary-Female: No burning urination, painful urination, urinary incontinence, urinary frequency, abnormal vaginal bleeding or pelvic pain Musc Musculoskeletal: No abnormal gait, joint pain, back pain, limited range of motion, neck pain or numbness Skin Skin: No dry skin, redness, lesions, itchy eyes, rash or wounds Neuro Neurology: No (more content not included)... Normal [facility] Absolute lymphocyte countOrd ered By: Nia Garciacarissa on 09-16-2023 Lymphocytes Auto (Unsp spec) [#/Vol] 2.01 10*3/uL 0.83-4.51 [facility] Automated lymphocyte count a s percentage of total leukocytesOrdered By: Nia Jeffrey on 09-16-2023 Lymphocytes/100 WBC Auto (Unsp spec) 30.8 % 19-41 [facility] Basophil percentageOrdered B y: Nia Jeffrey on 09-16-2023 Basophils/100 WBC (Bld) 1.1 % 0-1 [facility] Eosinophils/100 WBC (Bld) 5.1 % 0-5 [facility] Hemoglobin (Bld) [Mass/Vol] 13.5 g/dL 12.0-15.0 [facility] Monocytes/100 WBC (Bld) 7.0 % 0-10 [facility] Neutrophils (Bld) [#/Vol] 3.6 10*3/uL 2.0-7.7 [facility] Neutrophils/100 WBC (Bld) 55.7 % 47-70 [facility] WBC (Bld) [#/Vol] 6.5 10*3/uL 4.4-11.0 [facility] Basophil percentageOrdered B y: Monique Brown on 09-16-2023 Bilirubin [Mass/Vol] 0.30 mg/dL 0.20-1.00 [facility] Comment on above: For patients on eltr ombopag therapy, use of Dimension [place] TBIL is not recommended. Chloride [Moles/Vol] 109 mmol/L 98-107 [facility] Glucose [Mass/Vol] 103 mg/dL 74-106 [facility] Comment on above: Fasting Glucose resu lt from 100 to 125 mg/dL suggests IMPAIRED HOMEOSTASIS per A.D.A. criteria. Potassium [Moles/Vol] 4.4 mmol/L 3.5-5.1 [facility] Protein [Mass/Vol] 7.2 g/dL 6.4-8.2 [facility] Sodium [Moles/Vol] 139 mmol/L 136-145 [facility] CBC W/Diff, Automatedon 09-05 Absolute Lymph 2.01 X10 3/uL Normal 0.83-4.51 [facility] Comment on above: Performed By: #### L 100.0100, L506.1000 #### [facility] [address] [place], [address] Absolute Neut 3.6 X10 3/uL Normal 2.0-7.7 [facility] Comment on above: Performed By: #### L 100.0100, L506.1000 #### [facility] [address] [place], [address] Basophils/100 WBC (Bld) 1.1 % High 0-1 [facility] Comment on above: Performed By: #### L 100.0100, L506.1000 #### [facility] [address] [place], [address] Eosinophils/100 WBC (Bld) 5.1 % High 0-5 [facility] Comment on above: Performed By: #### L 100.0100, L506.1000 #### [facility] [address] [place], [address] Erythrocyte distribution width (RBC) [Ratio] 13.0 % Normal 11.6-14.6 [facility] Comment on above: Performed By: #### L 100.0100, L506.1000 #### [facility] [address] [place], [address] Hematocrit (Bld) [Volume fraction] 41.9 % Normal 37-47 [facility] Comment on above: Performed By: #### L 100.0100, L506.1000 #### [facility] [address] [place], [address] Hemoglobin (Bld) [Mass/Vol] 13.5 g/dL Normal 12.0-15.0 [facility] Comment on above: Performed By: #### L 100.0100, L506.1000 #### [facility] [address] [place], [address] IG% 0.300 Normal 0.0-0.9 [facility] Comment on above: Result Comment: IG% - Immature Granulocytes (promyelocytes, myelocytes and metamyelocytes) > 1% indicates that a LEFT SHIFT is Present. Performed By: #### L 100.0100, L506.1000 #### [facility] [address] [place], [address] Lymphocytes/100 WBC (Bld) 30.8 % Normal 19-41 [facility] Comment on above: Performed By: #### L 100.0100, L506.1000 #### [facility] [address] [place], [address] MCH (RBC) [Entitic mass] 31.2 pg Normal 27.0-32.0 [facility] Comment on above: Performed By: #### L 100.0100, L506.1000 #### [facility] [address] [place], [address] MCHC (RBC) [Mass/Vol] 32.2 g/dL Normal 32-36 [facility] Comment on above: Performed By: #### L 100.0100, L506.1000 #### [facility] [address] [place], [address] MCV (RBC) [Entitic vol] 96.8 fL Normal 81-99 [facility] Comment on above: Performed By: #### L 100.0100, L506.1000 #### [facility] [address] [place], [address] Monocytes/100 WBC (Bld) 7.0 % Normal 0-10 [facility] Comment on above: Performed By: #### L 100.0100, L506.1000 #### [facility] [address] [place], [address] Neutrophils/100 WBC (Bld) 55.7 % Normal 47-70 [facility] Comment on above: Performed By: #### L 100.0100, L506.1000 #### [facility] [address] [place], [address] Nucleated RBC (Bld) [#/Vol] 0 10*3/uL Normal 0-5 [facility] Comment on above: Performed By: #### L 100.0100, L506.1000 #### [facility] [address] [place], [address] Platelet mean volume (Bld) [Entitic vol] 10.2 fL Normal 6.2-12.0 [facility] Comment on above: Performed By: #### L 100.0100, L506.1000 #### [facility] [address] [place], [address] Platelets (Bld) [#/Vol] 274 10*3/uL Normal 150-450 [facility] Comment on above: Performed By: #### L 100.0100, L506.1000 #### [facility] [address] [place], [address] RBC (Bld) [#/Vol] 4.33 10*6/uL Normal 4.2-5.4 [facility] Comment on above: Performed By: #### L 100.0100, L506.1000 #### [facility] [address] [place], [address] RDW SD 46.8 fl High 35.1-43.9 [facility] Comment on above: Performed By: #### L 100.0100, L506.1000 #### [facility] [address] [place], [address] WBC (Bld) [#/Vol] 6.5 10*3/uL Normal 4.4-11.0 [facility] Comment on above: Performed By: #### L 100.0100, L506.1000 #### [facility] [address] [place], [address] Comprehensive Metabolic Prof ilon 09-16-2023 Albumin [Mass/Vol] 3.3 g/dL Normal 3.2-5.0 [facility] Comment on above: Performed By: #### L 501.9520, L506.0400, L500.4050 #### [facility] [address] [place], [address] Albumin/Globulin [Mass ratio] 0.8 {ratio} Low 0.9-2.4 [facility] Comment on above: Performed By: #### L 501.9520, L506.0400, L500.4050 #### [facility] [address] [place], [address] ALK P 67 U/L Normal 45-117 [facility] Comment on above: Performed By: #### L 501.9520, L506.0400, L500.4050 #### [facility] [address] [place], [address] ALT [Catalytic activity/Vol] 28 U/L Normal 13-56 [facility] Comment on above: Performed By: #### L 501.9520, L506.0400, L500.4050 #### [facility] [address] [place], [address] AST [Catalytic activity/Vol] 25 U/L Normal 15-37 [facility] Comment on above: Performed By: #### L 501.9520, L506.0400, L500.4050 #### [facility] [address] [place], [address] Bilirubin [Mass/Vol] 0.30 mg/dL Normal 0.20-1.00 [facility] Comment on above: Result Comment: For patients on eltrombopag therapy, use of Dimension [place] TBIL is not recommended. Performed By: #### L 501.9520, L506.0400, L500.4050 #### [facility] [address] [place], [address] BUN/CRE 17.1 RATIO Normal 10-20 [facility] Comment on above: Performed By: #### L 501.9520, L506.0400, L500.4050 #### [facility] [address] [place], [address] CA,Total 8.9 mg/dL Normal 8.5-10.1 [facility] Comment on above: Performed By: #### L 501.9520, L506.0400, L500.4050 #### [facility] [address] [place], [address] Chloride [Moles/Vol] 109 mmol/L High 98-107 [facility] Comment on above: Performed By: #### L 501.9520, L506.0400, L500.4050 #### [facility] [address] [place], [address] CO2 [Moles/Vol] 28.0 mmol/L Normal 21.0-32.0 [facility] Comment on above: Performed By: #### L 501.9520, L506.0400, L500.4050 #### [facility] [address] [place], [address] Creatinine [Mass/Vol] 0.82 mg/dL Normal 0.55-1.02 [facility] Comment on above: Result Comment: The validity of the calculated GFR GFRAA in patients over 70 years has not been determined. Clinical correlation is essential. Performed By: #### L 501.9520, L506.0400, L500.4050 #### [facility] [address] [place], [address] EST GFR - AA 93 mL/min Normal >60 [facility] Comment on above: Result Comment: Afri can Tongan GFR Calc Performed By: #### L 501.9520, L506.0400, L500.4050 #### [facility] [address] [place], [address] GAP 2 Low 5-15 [facility] Comment on above: Performed By: #### L 501.9520, L506.0400, L500.4050 #### [facility] [address] [place], [address] GFR/1.73 sq M.predicted among non-blacks MDRD (S/P/Bld) [Vol rate/Area] 77 mL/min/{1.73_m2} Normal >60 [facility] Comment on above: Result Comment: Non- GFR Calc Performed By: #### L 501.9520, L506.0400, L500.4050 #### [facility] [address] [place], [address] Globulin (S) [Mass/Vol] 3.9 g/dL Normal 2.2-4.2 [facility] Comment on above: Performed By: #### L 501.9520, L506.0400, L500.4050 #### [facility] [address] [place], [address] Glucose [Mass/Vol] 103 mg/dL Normal 74-106 [facility] Comment on above: Result Comment: Fast ing Glucose result from 100 to 125 mg/dL suggests IMPAIRED HOMEOSTASIS per A.D.A. criteria. Performed By: #### L 501.9520, L506.0400, L500.4050 #### [facility] [address] [place], [address] Potassium [Moles/Vol] 4.4 mmol/L Normal 3.5-5.1 [facility] Comment on above: Performed By: #### L 501.9520, L506.0400, L500.4050 #### [facility] [address] [place], [address] Sodium [Moles/Vol] 139 mmol/L Normal 136-145 [facility] Comment on above: Performed By: #### L 501.9520, L506.0400, L500.4050 #### [facility] [address] [place], [address] T PROT 7.2 g/dL Normal 6.4-8.2 [facility] Comment on above: Performed By: #### L 501.9520, L506.0400, L500.4050 #### [facility] [address] [place], [address] Urea nitrogen [Mass/Vol] 14 mg/dL Normal 7-18 [facility] Comment on above: Performed By: #### L 501.9520, L506.0400, L500.4050 #### [facility] [address] [place], [address] Determination of erythrocyte mean corpuscular volume (MCV)Ordered By: Nia Jeffrey on 09-16-2023 MCV (RBC) [Entitic vol] 96.8 fL 81-99 [facility] Erythrocyte distribution wid th ratioOrdered By: Nia Jeffrey on 09-16-2023 Erythrocyte distribution width (RBC) [Ratio] 13.0 % 11.6-14.6 [facility] Erythrocyte distribution wid th standard deviationOrdered By: Nia Jeffrey on 09-16-2023 Erythrocyte distribution width (RBC) [Entitic vol] 46.8 fL 35.1-43.9 [facility] Hematocrit Auto (Bld) [Volum e fraction]Ordered By: Nia Jeffrey on 09-16-2023 Hematocrit (Bld) [Volume fraction] 41.9 % 37-47 [facility] Immature granulocytes/100 WB C Auto (Bld)Ordered By: Nia Jeffrey on 09-16-2023 Immature granulocytes/100 WBC (Bld) 0.300 % 0.0-0.9 [facility] Comment on above: IG% - Immature Granu locytes (promyelocytes, myelocytes and metamyelocytes) > 1% indicates that a LEFT SHIFT is Present. Laboratory - Chemistry and C hemistry - challengeOrdered By: Monique Barrera on 09-16-2023 Albumin/Globulin [Mass ratio] 0.8 {ratio} 0.9-2.4 [facility] ALP [Catalytic activity/Vol] 67 U/L 45-117 [facility] ALT [Catalytic activity/Vol] 28 U/L 13-56 [facility] CO2 [Moles/Vol] 28.0 mmol/L 21.0-32.0 [facility] Globulin (S) [Mass/Vol] 3.9 g/dL 2.2-4.2 [facility] Urea nitrogen/Creatinine [Mass ratio] 17.1 mg/mg 10-20 [facility] - Hematology and Cell countsOrdered By: Nia Jeffrey on 09-16-2023 MCH (RBC) [Entitic mass] 31.2 pg 27.0-32.0 [facility] MCHC (RBC) [Mass/Vol] 32.2 g/dL 32-36 [facility] Nucleated RBC/100 WBC (Bld) [Ratio] 0 % 0-5 [facility] Platelet mean volume (Bld) [Entitic vol] 10.2 fL 6.2-12.0 [facility] Platelets (Bld) [#/Vol] 274 10*3/uL 150-450 [facility] No Panel InformationOrdered By: Monique Barrera on 09-16-2023 Estimated GFR (MDRD) Amer 93 mL/min >60 [facility] Comment on above: GFR Calc Estimated GFR (MDRD) Non-Af Amer 77 mL/min >60 [facility] Comment on above: Non- GFR Calc No Panel InformationOrdered By: Nia Jeffrey on 09-16-2023 Vitamin D 25-Hydroxy 9.6 ng/mL [facility] Comment on above: Vitamin D 25(OH) Sta tus Range Deficiency <20 ng/mL (50nmol/L) Insufficiency 20 - 30 ng/mL (50 - 75 nmol/L) Sufficiency 30 - 100 ng/mL (75 - 250 nmol/L) Toxicity >100 ng/mL (>250 nmol/L) RBC Auto (Bld) [#/Vol]Ordere d By: Nia Jeffrey on 09-16-2023 RBC (Bld) [#/Vol] 4.33 10*6/uL 4.2-5.4 [facility] Serum or plasma calcium alice urement (mass/volume)Ordered By: Monique Barrera on 09-16-2023 Calcium [Mass/Vol] 8.9 mg/dL 8.5-10.1 [facility] Serum or plasma creatinine m easurement (mass/volume)Ordered By: Monique Barrera on 09-16-2023 Creatinine [Mass/Vol] 0.82 mg/dL 0.55-1.02 [facility] Comment on above: The validity of the calculated GFR & GFRAA in patients over 70 years has not been determined. Clinical correlation is essential. Serum or plasma thyroid stim ulating hormone (TSH) measurement (units/volume)Ordered By: Monique Barrera on 09-16-2023 TSH Qn 0.40 uIU/mL 0.358-3.74 [facility] Serum or plasma urea nitroge n measurement (mass/volume)Ordered By: Monique Barrera on 09-16-2023 Urea nitrogen [Mass/Vol] 14 mg/dL 7-18 [facility] T4 Free Directon 09-16-2023 T4 FREE DIRECT 1.25 ng/dL Normal 0.76-1.46 [facility] Comment on above: Performed By: #### L 501.9557, L506.0400, L500.4050 #### [facility] [address] [place], [address] Thin prep Papanicolaou smear with manual screeningOrdered By: Monique Barrera on 09-16-2023 Thin prep Papanicolaou smear with manual screening 3.3 g/dL 3.2-5.0 [facility] Thin prep Papanicolaou smear with manual screening 25 U/L 15-37 [facility] Thin prep Papanicolaou smear with manual screening 2 5-15 [facility] Thin prep Papanicolaou smear with manual screening 1.25 ng/dL 0.76-1.46 [facility] Thyroid Stim Hormone (TSH)on 09-16-2023 TSH 0.40 uIU/mL Normal 0.358-3.74 [facility] Comment on above: Performed By: #### L [id number], L506.0400, L500.4050 #### [facility] [address] [place], [address] Vitamin D,25 Hydroxyon 09-15 Vitamin D 25-OH 9.6 ng/mL Normal [facility] Comment on above: Result Comment: Kya min D 25(OH) Status Range Deficiency <20 ng/mL (50nmol/L) Insufficiency 20 - 30 ng/mL (50 - 75 nmol/L) Sufficiency 30 - 100 ng/mL (75 - 250 nmol/L) Toxicity >100 ng/mL (>250 nmol/L) Performed By: #### L 100.0100, L506.1000 #### [facility] [address] [place], [address] Internal Medicine Office Vis iton 09-15-2023 Internal Medicine Office Visit [facility] [address] [place] [address] [place] [address] OFFICE VISIT Date of Service: 09/15/23 MR#: [id number] Acct: [id number] Name: SHIRA BAUTISTA Rep #: [id number] : 1970 Provider: Dr. 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 Required: No Is patient in pain?: No Allergies Penicillins Allergy (Severe, Verified 09/15/23 16:25) Hives erythromycin base Allergy (Unknown, Verified 09/15/23 16:25) Unknown latex Allergy (Unknown, Verified 09/15/23 16:25) Unknown morphine Allergy (Unknown, Verified 09/15/23 16:25) Unknown adhesive tape Allergy (Verified 09/15/23 16:25) Rash Medications diclofenac sodium 1 % topical gel (Arthritis Pain (diclofenac)) 2 g topical TID #100 grams 09/09/22 [Rx Confirmed 09/15/23] ferrous sulfate 325 mg (65 mg iron) tablet 325 mg PO DAILY 03/11/23 [History Confirmed 09/15/23] promethazine 6.25 mg-codeine 10 mg/5 mL syrup 5 ml PO Q4-6H PRN cough #473 mL 07/21/23 [Rx Confirmed 09/15/23] alprazolam 0.25 mg tablet 0.25 mg PO TID PRN TIC/ OCD 30 days #90 tabs 08/24/23 [Rx Confirmed 09/15/23] hydrochlorothiazide 25 mg tablet 25 mg PO QAM HTN #90 tabs 08/30/23 [Rx Confirmed 09/15/23] levothyroxine 150 mcg tablet (Synthroid) 150 mcg PO QDAY #90 tabs 08/30/23 [Rx Confirmed 09/15/23] lisinopril 40 mg tablet 40 mg PO DAILY HTN #90 tabs 08/30/23 [Rx Confirmed 09/15/23] gabapentin 300 mg capsule 600 mg (2 x 300 mg) PO TID #180 caps 09/07/23 [Rx Confirmed 09/15/23] Nurse's Note: Needing refills, and wants a skin check on moles. Has had some leg swelling off and on wanting checked for any water retention. PFSH Medical History Anxiety Arthritis Breast cancer History of abnormal mammogram history of novasure Hypertension Hypothyroid Injury of head and neck Marijuana smoker Migraine headache OCD (obsessive compulsive disorder) Sleep disorder Wears glasses Surgical History H/O umbilical hernia repair History of bilateral breast biopsy ( 02/2021) History of breast surgery History of mastectomy History of oral surgery History of surgery of head History of tubal ligation Family History Mother Hypertension Diabetes Colon polyps Grandmother Diabetes Social History adopted: No household members: none current occupational status: employed current occupation: [employer] Smoking Status: Former smoker how long ago did patient quit smokin alcohol intake: current alcohol intake frequency: a few times a month substance use type: does not use caffeine: No what type of physical activity do you participate in: walking seatbelt use: always HPI HPI Details: SHIRA BAUTISTA, is a 53 F who presents to the office today for some slight increase in her edema and pruritic consistent pain on her left mastectomy scar. She also has some moles she would like removed. ROS Const Constitutional: No body ache, chills, excessive sweating, fatigue, fever(s), frequent falls, headache(s), snoring, weakness, sleep problems or change in appetite Eyes Eyes: No blurry vision, change in vision, eye pain or Light sensitivity ENT ENT: No abnormal hearing, ear or mastoid pain, tinnitus, nasal congestion, headache(s), neck pain or sore throat Resp Respiratory: No cough, shortness of breath, snoring or wheezing Cardio Cardiology: No chest pain at rest, chest pain with exertion, excessive sweating, shortness of breath, dyspnea on exertion, lightheadedness, orthopnea or palpitations Gastro GI: No abdominal pain, change in bowel habits, constipation, cramping, diarrhea, nausea/dyspepsia or vomiting Genitourinary-Female: No burning urination, painful urination, urinary incontinence, urinary frequency, abnormal vaginal bleeding or pelvic pain Musc Musculoskeletal: No abnormal gait, joint pain, back pain, limited range of motion, neck pain or numbness Skin Skin: No dry skin, redness, lesions, itchy eyes, rash or wounds Neuro Neurology: No abnormal gait, abnormal hearing, weakness, frequent falls, headache(s), memory loss or numbness Psych Psychiatric: No anxiety, No change in appetite, No depression, No memory loss an (more content not included)... 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 HPI: The patient is a 53-year-old female with a past medical history significant for hypothyroidism and HTN. Was seen by Dr. Momo burks at [facility] 02/18/2021 for complaint of bilateral breast masses. [...] hyperplasia without atypia. Both invasive malignancies were ER/WY positive (greater than 95%, moderate to strong [...] right breast. Patient was then referred to [facility]. She underwent a right breast core [...] prophylactic skin sparing mastectomy and immediate tissue electrician aircraft placement, muscle graft harvest x2 and nerve [...] pT3 pN1a Expanders removed 05/05/2021. Had endometrial ablat (more content not included)... Normal [facility] Sada 09-06-2023 CORAZONN Telephone (BRENDEN) SHIRA BAUTISTA ([id number]) 1970 F Date Time Provider Department 09/06/23 AGUSTO DE LEON During your visit today, we recorded the following information about you: Kristin Nicole 09/06/2023 5:01 PM Signed Check out comments: OV with Uzma Romero about 6 months with CBC CMP and CT C/A/P Casie Boykin 09/07/2023 10:23 AM Signed Schedule as directed Allergies As of Date: 09/06/2023 Noted Allergy Reaction ERYTHROMYCIN 08/23/2006 4 - Hives 7 - Swelling PENICILLINS 03/11/2021 4 - Hives ADHESIVE TAPE-SILICONES 04/04/2021 14 - Other: See Comments Comments: Rash, itching ANTIHISTAMINE (DIPHENHYDRAMINE) 08/23/2006 14 - Other: See Comments Comments: Heart palpitations DECONGESTANT COUGH (PSEUDOEPHEDRI*08/24/19 07 14 - Other: See Comments Comments: Heart palpitations LATEX 05/17/2007 2 - Rash MORPHINE 12/13/2007 2 - Rash Date Reviewed: 09/06/2023 Reviewed by: Agusto De Leon DO - Fully Assessed Reason for Visit: AVS 09/06/23 [Other] Prescriptions as of 09/07/2023 - iv contrast (will be provided with radiology test) CT Chest ABD/PEL-Inject, intravenously, once for 1 dose.No IV access, insert saline lock prior to the beginning of sedation, infusion, injection of imaging exam. Discontinue saline lock post exam. If Pt. has a central line or IVAD, may access for administration according to line specific nursing protocol. Once exam is complete flush line and de-access according to line specific nursing protocol in the CT contrast administration guidelines link. - enteric contrast (will be provided with radiology test) For CT CHESTABD/PEL W IVCON Routine order Administer, As Directed One Time Only, via Oral, Rectal, both Oral and Rectal, Enteric Tube, Stoma or Indwelling Catheter, Enteric Contrast as designated per enteric contrast guidelines - gabapentin (NEURONTIN) 100 mg capsule Take 1 capsule by mouth once daily for 90 days. Add 100 mg by mouth at bedtime to current dose. - gabapentin (NEURONTIN) 300 mg capsule Take 1 capsule by mouth three times daily for 120 days. - hydroCHLOROthiazide 25 mg tablet Take 25 mg by mouth once daily. - lisinopril-hydroCHLOROt hiazide (PRINZIDE,ZESTORETIC) 10-12.5 mg per tablet Take 1 tablet by mouth once daily. - ALPRAZolam (XANAX) 0.25 mg tablet Take 0.25 mg by mouth three times daily as needed. - levothyroxine sodium(SYNTHROID 125 MCG TAB) Take one(1) tablet daily. 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 [facility] Comment on above: Order Comment: Speci men Comment: [id number] Specimen Comment: Source.............Cervix Specimen Comment: Other..............Post Menopausal Specimen Comment: No. of containers..01 ThinPrep Vial Result Comment: Sati sfactory for evaluation. Endocervical and/or squamous metaplastic cells (endocervical component) are present. Performed By: #### L 7400.0280 #### [facility] [address] [place], [address] COMM . Normal . [facility] Comment on above: Order Comment: Speci men Comment: [id number] Specimen Comment: Source.............Cervix Specimen Comment: Other..............Post Menopausal Specimen Comment: No. of containers..01 ThinPrep Vial Performed By: #### L 7400.0280 #### [facility] [address] [place], [place], [address] COMMENT Comment Normal . [facility] Comment on above: Order Comment: Speci men Comment: [id number] Specimen Comment: Source.............Cervix Specimen Comment: Other..............Post Menopausal Specimen Comment: No. of containers..01 ThinPrep Vial Result Comment: This liquid based ThinPrep(R) pap test was screened with the use of an image guided system. Performed By: #### L 7400.0280 #### [facility] [address] [place], [place], [id number] DIAG Comment Normal . [facility] Comment on above: Order Comment: Speci men Comment: [id number] Specimen Comment: Source.............Cervix Specimen Comment: Other..............Post Menopausal Specimen Comment: No. of containers..01 ThinPrep Vial Result Comment: NEGA TIVE FOR INTRAEPITHELIAL LESION OR MALIGNANCY. CELLULAR CHANGES ASSOCIATED WITH INFLAMMATION ARE PRESENT. Performed By: #### L 7400.0280 #### [facility] [address] [place], [place], [id number] HPV APTIMA, HR Negative Normal Negative [facility] Comment on above: Order Comment: Speci men Comment: [id number] Specimen Comment: Source.............Cervix Specimen Comment: Other..............Post Menopausal Specimen Comment: No. of containers..01 ThinPrep Vial Result Comment: This nucleic acid amplification test detects fourteen high- risk HPV types (16,18,31,33,35,39,45,51,52,56,58,59,66,68) without differentiation. Performed By: #### L 7400.0280 #### [facility] [address] [place], [place], [id number] HPV Cherry Rfx Comment Normal . [facility] Comment on above: Order Comment: Speci men Comment: [id number] Specimen Comment: Source.............Cervix Specimen Comment: Other..............Post Menopausal Specimen Comment: No. of containers..01 ThinPrep Vial Result Comment: Crit eria not met, HPV Genotype not performed. Performed at: - [facility] [id number] Veneer Measurer: Joellen Acevedo MD, Phone: [phone] Performed at: = - [facility] [id number] Veneer Measurer: Joellen Acevedo MD, Phone: [phone] Performed By: #### L 7400.0280 #### [facility] [address] [place], [address] PAPSMR Comment Normal . [facility] Comment on above: Order Comment: Speci men Comment: [id number] Specimen Comment: Source.............Cervix Specimen Comment: Other..............Post Menopausal Specimen Comment: No. of containers..01 ThinPrep Vial Result Comment: The Pap smear is a screening test designed to aid in the detection of premalignant and malignant conditions of the uterine cervix. It is not a diagnostic procedure and should not be used as the sole means of detecting cervical cancer. Both false-positive and false-negative reports do occur. Performed By: #### L 7400.0280 #### [facility] [address] [place], [place], [id number] PERFORM Comment Normal . [facility] Comment on above: Order Comment: Speci men Comment: [id number] Specimen Comment: Source.............Cervix Specimen Comment: Other..............Post Menopausal Specimen Comment: No. of containers..01 ThinPrep Vial Result Comment: Fede Pisano, Etl Developer (ASCP) Performed By: #### L 7400.0280 #### [facility] [address] [place], [address] Cervical or vaginal specimen microscopic examination by liquid based cytology (reportOrdered By: Nia Jeffrey on 07-26-2023 Cytology report Cyto stain.thin prep Doc (Cvx/Vag) Comment . [facility] Comment on above: Criteria not met, HP V Genotype not performed.Performed at: - [facility] [id number] Director: Joellen Acevedo MD, Phone: [phone] at: =[facility] [id number] Director: Joellen Acevedo MD, Phone: [phone] Cervical or vagninal specime n microscopic examination by cytology stain (reported asOrdered By: Nia Jeffrey on 07-26-2023 Cytology report Cyto stain Doc (Cvx/Vag) Comment . [facility] Comment on above: The Pap smear is a s creening test designed to aid in thedetection of premalignant and malignant conditions of theuterine cervix. It is not a diagnostic procedure andshould not be used as the sole means of detecting cervicalcancer. Both false-positive and false-negative reports dooccur. Detection in cervical specim en of any of human papilloma virus (HPV) 16, 18, 31, 33,Ordered By: Nia Jeffrey on 07-26-2023 HPV 16+18+31+33+35+39+45+5 1+52+56+58+59+66+68 DNA Probe+sig amp Ql (Cvx) Negative Negative [facility] Comment on above: This nucleic acid am plification test detects fourteen high- risk HPV types (16,18,31,33,35,39,45,51,52,56,58,59,66,68)without differentiation. Laboratory - CytologyOrdered By: Nia Jeffrey on 07-26-2023 Casket Inspector Cyto stain Nom (Cvx/Vag) [ID] Comment . [facility] Comment on above: Anam Kennedy otechnologist (ASCP) Laboratory - Miscellaneous t estsOrdered By: Nia Jeffrey on 07-26-2023 Service comment (Unsp spec) [Interp] . . [facility] Code And Test Clerk Office Visit Reporton 07-26-2023 Code And Test Clerk Office Visit Report [facility] [address] [place] [address] OFFICE VISIT Date of Service: 07/26/23 MR#: [id number] Acct: [id number] Name: SHIRA BAUTISTA Rep #: [id number] : 1970 Provider: Dr. Nia burr MD Age/Sex: 53/F Location: 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: No Is patient in pain?: No Allergies Penicillins Allergy (Severe, Verified 07/26/23 12:13) Hives erythromycin base Allergy (Unknown, Verified 07/26/23 12:13) Unknown latex Allergy (Unknown, Verified 07/26/23 12:13) Unknown morphine Allergy (Unknown, Verified 07/26/23 12:13) Unknown adhesive tape Allergy (Verified 07/26/23 12:13) Rash Medications levothyroxine 150 mcg tablet (Synthroid) 150 mcg PO QDAY #90 tabs 08/28/22 [Rx Confirmed 07/26/23] diclofenac sodium 1 % topical gel (Arthritis Pain (diclofenac)) 2 g topical TID #100 grams 09/09/22 [Rx Confirmed 07/26/23] hydrochlorothiazide 25 mg tablet 25 mg PO QAM HTN #90 tabs 03/01/23 [Rx Confirmed 07/26/23] lisinopril 40 mg tablet 40 mg PO DAILY HTN #90 tabs 03/01/23 [Rx Confirmed 07/26/23] ferrous sulfate 325 mg (65 mg iron) tablet 325 mg PO DAILY 03/11/23 [History Confirmed 07/26/23] alprazolam 0.25 mg tablet 0.25 mg PO TID PRN TIC/ OCD #90 tabs 06/18/23 [Rx Confirmed 07/26/23] gabapentin 300 mg capsule 600 mg (2 x 300 mg) PO TID #180 caps 07/09/23 [Rx Confirmed 07/26/23] promethazine 6.25 mg-codeine 10 mg/5 mL syrup 5 ml PO Q4-6H PRN cough #473 mL 07/21/23 [Rx Confirmed 07/26/23] Is last menstrual period known: No Post menopausal: Yes Patient : No : No PFSH Medical History Anxiety Arthritis Breast cancer History of abnormal mammogram history of novasure Hypertension Hypothyroid Injury of head and neck Marijuana smoker Migraine headache OCD (obsessive compulsive disorder) Sleep disorder Wears glasses Surgical History H/O umbilical hernia repair History of bilateral breast biopsy ( 02/2021) History of breast surgery History of mastectomy History of oral surgery History of surgery of head History of tubal ligation Family History Mother Hypertension Diabetes Colon polyps Grandmother Diabetes Social History adopted: No household members: none current occupational status: employed current occupation: [employer] Smoking Status: Former smoker how long ago did patient quit smokin alcohol intake: current alcohol intake frequency: a few times a month substance use type: does not use caffeine: No what type of physical activity do you participate in: walking seatbelt use: always HPI Encounter for routine gynecological examination Details: SHIRA BAUTISTA is a 53 year old who presents for annual exam. Last PAP: 2017 History of abnormal PAP: n osevere Last mammogram: breast cancer History of abnormal mammogram: double mastectomy Colon cancer screenin Other preventative health care screenings: Davide is PCP. Moises did labs in Female Reproductive History Questions: metorrhagia: No, sexually active: Yes, dyspareunia: No and PCB: No Menopausal Symptoms: No hot flashes, No night sweats, No weight change, No mood changes, No difficulty concentrating, No sleep problems and No change in libido ROS Const Constitutional: Reports as per HPI; Denies fatigue, increased appetite, poor appetite, night sweats, weight gain or weight loss Cardio Card: Denies chest pain Resp Resp: Denies cough or dyspnea GI GI: Reports as per HPI; Denies abdominal pain, bloating, constipation, nausea or vomiting : Reports as per HPI and other; Denies difficulty voiding, dysuria, hematuria, hot flashes, nipple discharge, pelvic pain, prolapse symptoms, urinary frequency, urinary incontinence, urinary urgency, vaginal discharge, vaginal dryness, vaginal odor or vaginal pruritus Skin Skin/Breast: Denies changing lesions, breast mass, breast pain, breast skin changes or nipple discharge Psych Psych: Denies anxiety, change in libido, depression or difficulty concentrating Exam Const General: cooperative, healthy appearing, comfortable, n (more content not included)... Normal [facility] Thin prep Papanicolaou smear with manual screeningOrdered By: Nia Jeffrey on 07-26-2023 Thin prep Papanicolaou smear with manual screening Comment . [facility] Comment on above: NEGATIVE FOR INTRAEP ITHELIAL LESION OR MALIGNANCY.CELLULAR CHANGES ASSOCIATED WITH INFLAMMATION ARE PRESENT. This liquid based Th inPrep(R) pap test was screened withthe use of an image guided system. Internal Medicine Office Vis iton 07-20-2023 Internal Medicine Office Visit [facility] [address] [place] [address] [place] [address] OFFICE VISIT Date of Service: 07/20/23 MR#: [id number] Acct: [id number] Name: SHIRA BAUTISTA Rep #: [id number] : 1970 Provider: Dr. 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: No Accompanied by: Self Is patient in pain?: No Allergies Penicillins Allergy (Severe, Verified 07/20/23 15:27) Hives erythromycin base Allergy (Unknown, Verified 07/20/23 15:27) Unknown latex Allergy (Unknown, Verified 07/20/23 15:27) Unknown morphine Allergy (Unknown, Verified 07/20/23 15:) Unknown adhesive tape Allergy (Verified 07/20/23 15:) Rash Medications levothyroxine 150 mcg tablet (Synthroid) 150 mcg PO QDAY #90 tabs 08/28/22 [Rx Confirmed 07/20/23] diclofenac sodium 1 % topical gel (Arthritis Pain (diclofenac)) 2 g topical TID #100 grams 09/09/22 [Rx Confirmed 07/20/23] hydrochlorothiazide 25 mg tablet 25 mg PO QAM HTN #90 tabs 03/01/23 [Rx Confirmed 07/20/23] lisinopril 40 mg tablet 40 mg PO DAILY HTN #90 tabs 03/01/23 [Rx Confirmed 07/20/23] ferrous sulfate 325 mg (65 mg iron) tablet 325 mg PO DAILY 03/11/23 [History Confirmed 07/20/23] alprazolam 0.25 mg tablet 0.25 mg PO TID PRN TIC/ OCD #90 tabs 06/18/23 [Rx Confirmed 07/20/23] gabapentin 300 mg capsule 600 mg (2 x 300 mg) PO TID #180 caps 07/09/23 [Rx Confirmed 07/20/23] promethazine 6.25 mg-codeine 10 mg/5 mL syrup 5 ml PO Q4-6H PRN cough #473 mL 07/20/23 [Rx Confirmed 07/20/23] PFSH Medical History Anxiety Arthritis Breast cancer History of abnormal mammogram history of novasure Hypertension Hypothyroid Injury of head and neck Marijuana smoker Migraine headache OCD (obsessive compulsive disorder) Sleep disorder Wears glasses Surgical History H/O umbilical hernia repair History of bilateral breast biopsy ( 02/2021) History of breast surgery History of mastectomy History of oral surgery History of surgery of head History of tubal ligation Family History Mother Hypertension Diabetes Colon polyps Grandmother Diabetes Social History adopted: No household members: none current occupational status: employed current occupation: [employer] Smoking Status: Former smoker how long ago did patient quit smokin alcohol intake: current alcohol intake frequency: a few times a month substance use type: does not use caffeine: No what type of physical activity do you participate in: walking seatbelt use: always HPI HPI Chief Complaint: possible hernia Details: SHIRA BAUTISTA, is a 53 F who presents to the office today for a bulging feeling over her umbilicus. It has been there for a while, and she can push it back in without any tenderness. 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 Her COVID test was negative. ROS Const Constitutional: No body ache, chills, excessive sweating, fatigue, fever(s), frequent falls, headache(s), snoring, weakness or change in appetite Eyes Eyes: No blurry vision, change in vision, eye pain or Light sensitivity ENT ENT: No abnormal hearing, ear or mastoid pain, tinnitus, nasal congestion, headache(s), neck pain or sore throat Resp Respiratory: No cough, shortness of breath, snoring or wheezing Cardio Cardiology: No chest pain at rest, chest pain with exertion, excessive sweating, dyspnea on exertion, lightheadedness, orthopnea or palpitations Gastro GI: No abdominal pain, change in bowel habits, constipation, cramping, diarrhea, nausea/dyspepsia or vomiting Genitourinary-Female: No burning urination, painful urination, urinary incontinence or urinary frequency Musc Musculoskeletal: No abnormal gait, joint pain, back pain, limited range of motion, muscle weakness, neck pain or numbness Skin Skin: No dry skin, redness, lesions, itchy eyes, rash or wounds Neuro Neurology: No abnormal gait, abnormal hearing, weakness, frequent falls, headache(s), memory loss or numbness Psych Psychiatric: No anxiety, No change in appetite, No depression, No memory loss and No Tho (more content not included)... Normal [facility] CBC W Auto Differential pane l (Bld)on 04-08-2022 Basophils (Bld) [#/Vol] 0.07 10*3/uL <0.11 k/uL [facility] Basophils/100 WBC (Bld) 0.9 % [facility] Differential cell count method Nom (Bld) Auto [facility] Eosinophils (Bld) [#/Vol] 0.28 10*3/uL <0.46 k/uL [facility] Eosinophils/100 WBC (Bld) 3.7 % [facility] Erythrocyte distribution width (RBC) [Ratio] 13.4 % 11.5 - 15.0 % [facility] Hematocrit (Bld) [Volume fraction] 38.9 % 36.0 - 46.0 % [facility] Hemoglobin (Bld) [Mass/Vol] 12.9 g/dL 11.5 - 15.5 g/dL [facility] Immature granulocytes (Bld) [#/Vol] 0.03 10*3/uL <0.10 k/uL [facility] Immature granulocytes/100 WBC (Bld) 0.4 % [facility] Lymphocytes (Bld) [#/Vol] 2.00 10*3/uL 1.00 - 4.00 k/uL [facility] Lymphocytes/100 WBC (Bld) 26.4 % [facility] MCH (RBC) [Entitic mass] 31.0 pg 26.0 - 34.0 pg [facility] MCHC (RBC) [Mass/Vol] 33.2 g/dL 30.5 - 36.0 g/dL [facility] MCV (RBC) [Entitic vol] 93.5 fL 80.0 - 100.0 fL [facility] Monocytes (Bld) [#/Vol] 0.50 10*3/uL <0.87 k/uL [facility] Monocytes/100 WBC (Bld) 6.6 % [facility] Neutrophils (Bld) [#/Vol] 4.69 10*3/uL 1.45 - 7.50 k/uL [facility] [facility] Neutrophils/100 WBC (Bld) 62.0 % [facility] Nucleated RBC (Bld) [#/Vol] <0.01 k/uL [facility] Nucleated RBC/100 WBC (Bld) [Ratio] 0.0 /100 WBC [facility] Platelet mean volume (Bld) [Entitic vol] 9.7 fL 9.0 - 12.7 fL [facility] Platelets (Bld) [#/Vol] 263 10*3/uL 150 - 400 k/uL [facility] RBC (Bld) [#/Vol] 4.16 10*6/uL 3.90 - 5.2 0 m/uL [facility] WBC (Bld) [#/Vol] 7.57 10*3/uL 3.70 - 11. 00 k/uL [facility] Comprehensive metabolic 2000 panelon 04-08-2022 Albumin [Mass/Vol] 4.2 g/dL 3.9 - 4.9 g/dL [facility] ALP [Catalytic activity/Vol] 86 U/L 34 - 123 U/L [facility] ALT [Catalytic activity/Vol] 13 U/L 7 - 38 U/L [facility] Anion gap [Moles/Vol] 10 mmol/L 9 - 18 mmol/L [facility] AST [Catalytic activity/Vol] 16 U/L 13 - 35 U/L [facility] Bilirubin [Mass/Vol] 0.2 mg/dL 0.2 - 1 .3 mg/dL [facility] Calcium [Mass/Vol] 9.3 mg/dL 8.5 - 10. 2 mg/dL [facility] Chloride [Moles/Vol] 105 mmol/L 97 - 10 5 mmol/L [facility] CO2 [Moles/Vol] 24 mmol/L 22 - 30 mmol/L [facility] Creatinine [Mass/Vol] 0.71 mg/dL 0.58 - 0.96 mg/dL [facility] Estimated Glomerular Filtration Rate 101 mL/min/1.73m >=60 mL/min/1.73m [facility] Glucose [Mass/Vol] 117 mg/dL High 74 - 99 mg/dL [facility] Potassium [Moles/Vol] 4.0 mmol/L 3.7 - 5.1 mmol/L [facility] Protein [Mass/Vol] 7.2 g/dL 6.3 - 8.0 g/dL [facility] Sodium [Moles/Vol] 139 mmol/L 136 - 144 mmol/L [facility] Urea nitrogen [Mass/Vol] 18 mg/dL 7 - 21 mg/dL [facility] Erythrocyte sedimentation ra sami 03-18-2022 ESR (Bld) [Velocity] 26 mm/h 0-30 [facility] Work Phone: Serum rheumatoid factor dete ctionon 03-18-2022 Rheumatoid factor Ql (S) < 10.0 IU/mL <15 [facility] Work Phone: CBC W Auto Differential pane l (Bld)on 03-19-2021 Abs Immature Gran <0.03 <0.10 k/uL [facility] Basophils (Bld) [#/Vol] 0.08 10*3/uL <0.11 k/uL [facility] Basophils/100 WBC (Bld) 1.2 % [facility] Differential cell count method Nom (Bld) Auto [facility] Eosinophils (Bld) [#/Vol] 0.22 10*3/uL <0.46 k/uL [facility] Eosinophils/100 WBC (Bld) 3.2 % [facility] Erythrocyte distribution width (RBC) [Ratio] 13.1 % 11.5 - 15.0 % [facility] Hematocrit (Bld) [Volume fraction] 42.0 % 36.0 - 46.0 % [facility] Hemoglobin (Bld) [Mass/Vol] 13.4 g/dL 11.5 - 15.5 g/dL [facility] Immature Gran % 0.3 % [facility] Lymphocytes (Bld) [#/Vol] 2.35 10*3/uL 1.00 - 4.00 k/uL [facility] Lymphocytes/100 WBC (Bld) 34.0 % [facility] MCH (RBC) [Entitic mass] 31.4 pg 26.0 - 34.0 pg [facility] MCHC (RBC) [Mass/Vol] 31.9 g/dL 30.5 - 36.0 g/dL [facility] MCV (RBC) [Entitic vol] 98.4 fL 80.0 - 100.0 fL [facility] Monocytes (Bld) [#/Vol] 0.48 10*3/uL <0.87 k/uL [facility] Monocytes/100 WBC (Bld) 6.9 % [facility] Neutrophils (Bld) [#/Vol] 3.77 10*3/uL 1.45 - 7.50 k/uL [facility] Neutrophils/100 WBC (Bld) 54.4 % [facility] Nucleated RBC (Bld) [#/Vol] 10*3/uL <0.01 k/uL [facility] Nucleated RBC/100 WBC (Bld) [Ratio] 0.0 /100 WBC 0.0 /100 WBC [facility] Platelet mean volume (Bld) [Entitic vol] 10.8 fL 9.0 - 12.7 fL [facility] Platelets (Bld) [#/Vol] 279 10*3/uL 150 - 400 k/uL [facility] RBC (Bld) [#/Vol] 4.27 10*6/uL 3.90 - 5.2 0 m/uL [facility] WBC (Bld) [#/Vol] 6.92 10*3/uL 3.70 - 11. 00 k/uL [facility] Comprehensive metabolic 2000 panelon 03-19-2021 Albumin [Mass/Vol] 4.4 g/dL 3.9 - 4.9 g/dL [facility] ALP [Catalytic activity/Vol] 61 U/L 34 - 123 U/L [facility] ALT With P-5'-P [Catalytic activity/Vol] 17 U/L 7 - 38 U/L [facility] Anion gap [Moles/Vol] 12 mmol/L 9 - 18 mmol/L [facility] AST With P-5'-P [Catalytic activity/Vol] 17 U/L 13 - 35 U/L [facility] Bilirubin [Mass/Vol] 0.2 mg/dL 0.2 - 1 .3 mg/dL [facility] Calcium [Mass/Vol] 9.4 mg/dL 8.5 - 10. 2 mg/dL [facility] Chloride [Moles/Vol] 103 mmol/L 97 - 10 5 mmol/L [facility] CO2 [Moles/Vol] 26 mmol/L 22 - 30 mmol/L [facility] Creatinine [Mass/Vol] 0.77 mg/dL 0.58 - 0.96 mg/dL [facility] GFR/1.73 sq M.predicted MDRD (S/P/Bld) [Vol rate/Area] mL/min/{1.73_m2} [facility] Glucose [Mass/Vol] 92 mg/dL 74 - 99 mg/dL [facility] Potassium [Moles/Vol] 4.2 mmol/L 3.7 - 5.1 mmol/L [facility] Protein [Mass/Vol] 7.2 g/dL 6.3 - 8.0 g/dL [facility] Sodium [Moles/Vol] 141 mmol/L 136 - 144 mmol/L [facility] Urea nitrogen [Mass/Vol] 17 mg/dL 7 - 21 mg/dL [facility] No Panel Informationon 03-14 [facility] Vital Signs Date Time Vital Sign Value Performing Clinician Tyra cooley 10-19-2024 15:28-0400 Body height 162.6 cm Maris Alexandre APRN.[employer] PLATE PRESS OPERATOR Work Phone: [facility] 10-19-2024 15:28-0400 Body mass index (BMI) [Ratio] 46.35 kg/m2 Maris Alexandre APRN.HOT PLATE PRESS OPERATOR Work Phone: [facility] 10-19-2024 15:28-0400 Body weight 122.47 kg Maris Alexandre APRN.HOT PLATE PRESS OPERATOR Work Phone: [facility] 10-19-2024 15:28-0400 Diastolic blood pressure 88 mm[Hg] Maris Alexandre APRN.HOT PLATE PRESS OPERATOR Work Phone: [facility] 10-19-2024 15:28-0400 Heart rate 78 /min Maris Alexandre APRN.HOT PLATE PRESS OPERATOR Work Phone: [facility] 10-19-2024 15:28-0400 Systolic blood pressure 149 mm[Hg] Maris Alexandre APRN.HOT PLATE PRESS OPERATOR Work Phone: [facility] 03-15-2024 08:38-0400 Body mass index (BMI) [Ratio] 46.35 kg/m2 Uzma Romero Work Phone: [facility] 03-15-2024 08:38-0400 Body temperature 98.29 [degF] Uzma Romero Work Phone: [facility] 03-15-2024 08:38-0400 Body weight 122.47 kg Uzma Romero Work Phone: [facility] 03-15-2024 08:38-0400 Diastolic blood pressure 77 mm[Hg] Uzma Romero Work Phone: [facility] 03-15-2024 08:38-0400 Heart rate 81 /min Uzma Romero Work Phone: [facility] 03-15-2024 08:38-0400 SaO2% (BldA) [Mass fraction] 97 % Uzma Romero Work Phone: [facility] 03-15-2024 08:38-0400 Systolic blood pressure 116 mm[Hg] Uzma Romero Work Phone: [facility] 10-25-2023 09:08-0400 Body height 162.6 cm Maris Alexandre ROUTE SPECIALIST.HOT PLATE PRESS OPERATOR Work Phone: [facility] 10-25-2023 09:08-0400 Body mass index (BMI) [Ratio] 47.2 kg/m2 Maris Alexandre ROUTE SPECIALIST.H[employer] PLATE PRESS OPERATOR Work Phone: [facility] 10-25-2023 09:08-0400 Body weight 124.74 kg Maris Alexandre ROUTE SPECIALIST.H[employer] PLATE PRESS OPERATOR Work Phone: [facility] 10-25-2023 09:08-0400 Diastolic blood pressure 95 mm[Hg] Maris Alexandre ROUTE SPECIALIST.H[employer] PLATE PRESS OPERATOR Work Phone: [facility] Comment on above: bp on lower arm 10-25-2023 09:08-0400 Heart rate 71 /min Maris Alexandre ROUTE SPECIALIST.H[employer] PLATE PRESS OPERATOR Work Phone: [facility] 10-25-2023 09:08-0400 Systolic blood pressure 151 mm[Hg] Maris Alexandre ROUTE SPECIALIST.HOT PLATE PRESS OPERATOR Work Phone: [facility] Comment on above: bp on lower arm 09-15-2023 16:28-0400 Body height 162.[address] Monique Barrera Work Phone: [facility] 09-15-2023 16:28-0400 Body mass index (BMI) [Ratio] 47.7 kg/m2 Dr. Monique Barrera Work Phone: [facility] 09-15-2023 16:28-0400 Body temperature 98.1 [degF] Dr. Monique Barrera Work Phone: [facility] 09-15-2023 16:28-0400 Body weight 126.[address] Monique Barrera Work Phone: [facility] 09-15-2023 16:28-0400 Diastolic blood pressure 82 mm[Hg] Dr. Monique Barrera Work Phone: [facility] 09-15-2023 16:28-0400 Heart rate 70 /min Dr. Monique Barrera Work Phone: [facility] 09-15-2023 16:28-0400 Respiratory rate 14 /min Dr. Monique Barrera Work Phone: [facility] 09-15-2023 16:28-0400 SaO2% (BldA) [Mass fraction] 99 % Dr. Monique Barrera Work Phone: [facility] 09-15-2023 16:28-0400 Systolic blood pressure 122 mm[Hg] Dr. Monique Barrera Work Phone: [facility] 09-06-2023 16:18-0400 Body temperature 98.49 [degF] Agusto De Leon DO Work Phone: [facility] 09-06-2023 16:18-0400 Body weight 126.33 kg Agusto De Leon DO Work Phone: [facility] 09-06-2023 16:18-0400 Diastolic blood pressure 91 mm[Hg] Agusto De Leon DO Work Phone: [facility] 09-06-2023 16:18-0400 Heart rate 76 /min Agusto De Leon DO Work Phone: [facility] 09-06-2023 16:18-0400 SaO2% (BldA) [Mass fraction] 97 % Agusto De Leon DO Work Phone: [facility] 09-06-2023 16:18-0400 Systolic blood pressure 157 mm[Hg] Agusto De Leon DO Work Phone: [facility] 07-26-2023 12:16-0500 Body height 162.[address] Monique Barrera Work Phone: [facility] 07-26-2023 12:13-0500 Body mass index (BMI) [Ratio] 47.7 kg/m2 Dr. Monique Barrera Work Phone: [facility] 07-26-2023 12:13-0500 Body weight 126.[address] Monique Barrera Work Phone: [facility] 07-26-2023 12:13-0500 Diastolic blood pressure 90 mm[Hg] Dr. Monique Barrera Work Phone: [facility] 07-26-2023 12:13-0500 Systolic blood pressure 130 mm[Hg] Dr. Monique Barrera Work Phone: [facility] 07-20-2023 15:31-0500 Body mass index (BMI) [Ratio] 47 kg/m2 Dr. Monique Barrera Work Phone: [facility] 07-20-2023 15:31-0500 Body temperature 97.7 [degF] Dr. Monique Barrera Work Phone: [facility] 07-20-2023 15:31-0500 Body weight 124.[address] Monique Barrera Work Phone: [facility] 07-20-2023 15:31-0500 Diastolic blood pressure 82 mm[Hg] Dr. Monique Barrera Work Phone: [facility] 07-20-2023 15:31-0500 Heart rate 87 /min Dr. Monique Barrera Work Phone: [facility] 07-20-2023 15:31-0500 Respiratory rate 16 /min Dr. Monique Barrera Work Phone: [facility] 07-20-2023 15:31-0500 SaO2% (BldA) [Mass fraction] 99 % Dr. Monique Barrera Work Phone: [facility] 07-20-2023 15:31-0500 Systolic blood pressure 120 mm[Hg] Dr. Monique Barrera Work Phone: [facility] 02-12-2023 16:08-0400 Body temperature 97.5 [degF] Agusto Masci DO Work Phone: [facility] 02-12-2023 16:08-0400 Body weight 125.19 kg Agusto Masci DO Work Phone: [facility] 02-12-2023 16:08-0400 Diastolic blood pressure 85 mm[Hg] Agusto Masci DO Work Phone: [facility] 02-12-2023 16:08-0400 Heart rate 77 /min Agusto Masci DO Work Phone: [facility] 02-12-2023 16:08-0400 SaO2% (BldA) [Mass fraction] 97 % Agusto Masci DO Work Phone: [facility] 02-12-2023 16:08-0400 Systolic blood pressure 133 mm[Hg] Agusto Masci DO Work Phone: [facility] 11-12-2022 16:08-0400 Body temperature 97.81 [degF] Agusto Masci DO Work Phone: [facility] 11-12-2022 16:08-0400 Body weight 128.37 kg Agusto Masci DO Work Phone: [facility] 11-12-2022 16:08-0400 Diastolic blood pressure 86 mm[Hg] Agusto Masci DO Work Phone: [facility] 11-12-2022 16:08-0400 Heart rate 82 /min Agsuto Masci DO Work Phone: [facility] 11-12-2022 16:08-0400 Systolic blood pressure 142 mm[Hg] Agusto Masci DO Work Phone: [facility] 10-21-2022 09:32-0400 Body height 162.6 cm Maris Alexandre ROUTE SPECIALIST.H[employer] PLATE PRESS OPERATOR Work Phone: [facility] 10-21-2022 09:32-0400 Body weight 121.56 kg Maris Alexandre ROUTE SPECIALIST.HOT PLATE PRESS OPERATOR Work Phone: [facility] 10-21-2022 09:32-0400 Diastolic blood pressure 88 mm[Hg] Maris Alexandre ROUTE SPECIALIST.H[employer] PLATE PRESS OPERATOR Work Phone: [facility] 10-21-2022 09:32-0400 Heart rate 87 /min Maris Alexandre ROUTE SPECIALIST.HOT PLATE PRESS OPERATOR Work Phone: [facility] 10-21-2022 09:32-0400 Systolic blood pressure 132 mm[Hg] Maris Alexandre ROUTE SPECIALIST.HOT PLATE PRESS OPERATOR Work Phone: [facility] 05-12-2022 16:01-0500 Body temperature 99 [degF] Agusto Betii DO Work Phone: [facility] 05-12-2022 16:01-0500 Body weight 117.94 kg Agusto Masci DO Work Phone: [facility] 05-12-2022 16:01-0500 Diastolic blood pressure 93 mm[Hg] Agusto Masci DO Work Phone: [facility] 05-12-2022 16:01-0500 Heart rate 74 /min Agusto Masci DO Work Phone: [facility] 05-12-2022 16:01-0500 SaO2% (BldA) [Mass fraction] 96 % Agusto Masci DO Work Phone: [facility] 05-12-2022 16:01-0500 Systolic blood pressure 153 mm[Hg] Agusto Masci DO Work Phone: [facility] 04-21-2022 10:35-0500 Body temperature 99.3 [degF] Dr. Monique Barrera Work Phone: [facility] Work Phone: 04-21-2022 10:35-0500 Diastolic blood pressure 102 mm[Hg] Dr. Monique Barrera Work Phone: [facility] Work Phone: 04-21-2022 10:35-0500 Heart rate 70 /min Dr. Monique Barrera Work Phone: [facility] Work Phone: 04-21-2022 10:35-0500 Respiratory rate 16 /min Dr. Monique Barrera Work Phone: [facility] Work Phone: 04-21-2022 10:35-0500 SaO2% (BldA) [Mass fraction] 99 % Dr. Monique Barrera Work Phone: [facility] Work Phone: 04-21-2022 10:35-0500 Systolic blood pressure 149 mm[Hg] Dr. Monique Barrera Work Phone: [facility] Work Phone: 04-21-2022 09:13-0500 Body height 162.[address] Monique Barrera Work Phone: [facility] Work Phone: 04-21-2022 09:13-0500 Body mass index (BMI) [Ratio] 43 kg/m2 Dr. Monique Barrera Work Phone: [facility] Work Phone: 04-21-2022 09:13-0500 Body weight 113.[address] Monique Barrera Work Phone: [facility] Work Phone: 04-08-2022 09:12-0400 Body height 161.5 cm Agusto De Leon DO Work Phone: [facility] 04-08-2022 09:12-0400 Body temperature 97.9 [degF] Agusto De Leon DO Work Phone: [facility] 04-08-2022 09:12-0400 Body weight 115.67 kg Agusto De Leon DO Work Phone: [facility] 04-08-2022 09:12-0400 Diastolic blood pressure 97 mm[Hg] Agusto De Leon DO Work Phone: [facility] 04-08-2022 09:12-0400 Heart rate 77 /min Agusto De Leon DO Work Phone: [facility] 04-08-2022 09:12-0400 SaO2% (BldA) [Mass fraction] 96 % Agusto De Leon DO Work Phone: [facility] 04-08-2022 09:12-0400 Systolic blood pressure 142 mm[Hg] Agusto De Leon DO Work Phone: [facility] 03-25-2022 09:57-0400 Body mass index (BMI) [Ratio] 42.9 kg/m2 Dr. Monique Barrera Work Phone: [facility] Work Phone: 03-25-2022 09:57-0400 Body weight 113.[address] Monique Barrera Work Phone: [facility] Work Phone: 03-10-2022 16:31-0400 Body height 162.[address] Monique Barrera Work Phone: [facility] Work Phone: 03-10-2022 16:31-0400 Body mass index (BMI) [Ratio] 43 kg/m2 Dr. Monique Barrera Work Phone: [facility] Work Phone: 03-10-2022 16:31-0400 Body temperature 97 [degF] Dr. Monique Barrera Work Phone: [facility] Work Phone: 03-10-2022 16:31-0400 Body weight 113.[address] Monique Barrera Work Phone: [facility] Work Phone: 03-10-2022 16:31-0400 Diastolic blood pressure 94 mm[Hg] Dr. Monique Barrera Work Phone: [facility] Work Phone: 03-10-2022 16:31-0400 Heart rate 74 /min Dr. Monique Barrera Work Phone: [facility] Work Phone: 03-10-2022 16:31-0400 Respiratory rate 16 /min Dr. Monique Barrera Work Phone: [facility] Work Phone: 03-10-2022 16:31-0400 SaO2% (BldA) [Mass fraction] 98 % Dr. Monique Barrera Work Phone: [facility] Work Phone: 03-10-2022 16:31-0400 Systolic blood pressure 138 mm[Hg] Dr. Monique Barrera Work Phone: [facility] Work Phone: 10-20-2021 09:39-0400 Body height 160 cm Maris Alexandre ROUTE SPECIALIST.HOT PLATE PRESS OPERATOR Work Phone: [facility] 10-20-2021 09:39-0400 Body weight 110.68 kg Maris Alexandre ROUTE SPECIALIST.HOT PLATE PRESS OPERATOR Work Phone: [facility] 10-20-2021 09:39-0400 Diastolic blood pressure 88 mm[Hg] Maris Alexandre ROUTE SPECIALIST.HOT PLATE PRESS OPERATOR Work Phone: [facility] 10-20-2021 09:39-0400 Heart rate 88 /min Maris Alexandre ROUTE SPECIALIST.HOT PLATE PRESS OPERATOR Work Phone: [facility] 10-20-2021 09:39-0400 Systolic blood pressure 130 mm[Hg] Maris Alexandre ROUTE SPECIALIST.HOT PLATE PRESS OPERATOR Work Phone: [facility] 04-30-2021 11:28-0500 Body height 160 cm Pst 2 [facility] 04-30-2021 11:28-0500 Body temperature 98.1 [degF] Pst 2 [facility] 04-30-2021 11:28-0500 Body weight 111.13 kg Pst 2 [facility] 04-30-2021 11:28-0500 Diastolic blood pressure 83 mm[Hg] Pst 2 [facility] 04-30-2021 11:28-0500 Heart rate 87 /min Pst 2 [facility] 04-30-2021 11:28-0500 Respiratory rate 16 /min Pst 2 [facility] 04-30-2021 11:28-0500 SaO2% (BldA) [Mass fraction] 99 % Pst 2 [facility] 04-30-2021 11:28-0500 Systolic blood pressure 134 mm[Hg] Pst 2 [facility] 04-22-2021 12:57-0500 Body height 162.6 cm Ivory Ramesh MD Work Phone: [facility] 04-22-2021 12:57-0500 Body weight 118.39 kg Ivory Ramesh MD Work Phone: [facility] 04-22-2021 12:57-0500 Diastolic blood pressure 87 mm[Hg] Ivory Ramesh MD Work Phone: [facility] 04-22-2021 12:57-0500 Heart rate 85 /min Ivory Ramesh MD Work Phone: [facility] 04-22-2021 12:57-0500 Systolic blood pressure 137 mm[Hg] Ivory Ramesh MD Work Phone: [facility] 03-19-2021 10:25-0400 Body height 162.6 cm Ivory Ramesh MD Work Phone: [facility] 03-19-2021 10:25-0400 Body weight 117.94 kg Ivory Ramesh MD Work Phone: [facility] 03-19-2021 10:25-0400 Diastolic blood pressure 77 mm[Hg] Ivory Ramesh MD Work Phone: [facility] 03-19-2021 10:25-0400 Heart rate 69 /min Ivory Ramesh MD Work Phone: [facility] 03-19-2021 10:25-0400 Systolic blood pressure 135 mm[Hg] Ivory Ramesh MD Work Phone: [facility] 03-18-2021 13:01-0400 Body height 162.6 cm Matthew Pace MD Work Phone: [facility] 03-18-2021 13:010400 Body weight 118.66 kg Matthew Pace MD Work Phone: [facility] 03-11-2021 10:090400 Body height 162.6 cm Ivory Ramesh MD Work Phone: [facility] 03-11-2021 10:090400 Body weight 117.94 kg Ivory Ramesh MD Work Phone: [facility] 03-11-2021 10:09-0400 Diastolic blood pressure 56 mm[Hg] Ivory Ramesh MD Work Phone: [facility] 03-11-2021 10:090400 Heart rate 77 /min Ivory Ramesh MD Work Phone: [facility] 03-11-2021 10:09-0400 Systolic blood pressure 150 mm[Hg] Ivory Ramesh MD Work Phone: [facility] Encounters Encounter Date Encounter Type Care Provider Facility Start: 10-19-2024 End: 10-19-2024 Patient encounter procedure Maris Alexandre APRN.H[employer] PLATE PRESS OPERATOR Work Phone: [facility] Comment on above: Lymphedema (Primary Dx); Malignant neoplasm of overlapping sites of left breast in female, estrogen receptor positive (HCC); 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 from neoplasm of breast determined by histopathologic examination (pN1a) (HCC); History of bilateral mastectomy Start: 10-19-2024 End: 10-19-2024 ambulatory MARIS ALEXANDRE Facility:[facility] Start: 07-12-2024 End: 07-12-2024 ambulatory Monique Barrera Facility[facility] Start: 06-29-2024 End: 06-29-2024 Refill Maris Alexandre APRN.HOT PLATE PRESS OPERATOR Work Phone: [facility] Comment on above: Refill Request Start: 03-15-2024 End: 03-15-2024 ambulatory UZMA ROMERO Facility:[facility] Comment on above: Malignant neoplasm o f overlapping sites of left breast in female, estrogen receptor positive (HCC) (Primary Dx); Malignant neoplasm of female breast, unspecified estrogen receptor status, unspecified laterality, unspecified site of breast (HCC); Lung nodules Start: 03-15-2024 End: 03-15-2024 Patient encounter procedure Uzma Romero Work Phone: Hematology/Oncology Start: 03-08-2024 End: 03-08-2024 ambulatory MONIQUE Hunter [facility] Facility:[facility] Start: 03-08-2024 End: 03-08-2024 Subsequent hospital visit by physician [facility] Cat Scan Comment on above: Malignant neoplasm o f overlapping sites of left breast in female, estrogen receptor positive (HCC) [C50.812, Z17.0] Start: 02-17-2024 End: 02-17-2024 ambulatory Monique Hunter [facility] Facility:[facility] Start: 10-25-2023 End: 10-25-2023 Patient encounter procedure Maris Alexandre APRN.HOT PLATE PRESS OPERATOR Work Phone: [facility] Comment on above: Malignant neoplasm o f overlapping sites of left breast in female, estrogen receptor positive (HCC) (Primary Dx); History of bilateral mastectomy Start: 10-12-2023 End: 10-12-2023 ambulatory Monique [facility] Facility:[facility] Start: 09-27-2023 Refill Maris KRISHNAN RN.HOT PLATE PRESS OPERATOR Work Phone: [facility] Comment on above: Refill Request Start: 09-16-2023 End: 09-16-[address] Monique Barrera Work Phone: [facility] Work Phone: Start: 09-16-2023 End: 09-16-[address] Monique Barrera Work Phone: [facility] [place] Start: 09-15-2023 End: 09-15-[address] Monique Barrera Work Phone: [facility] Work Phone: Start: 09-15-2023 End: 09-16-2023 ambulatory Monique Barrera Facility:[facility] Start: 09-06-2023 End: 09-06-2023 ambulatory Agusto De Leon DO Work Phone: Hematology/Oncology Comment on above: Malignant neoplasm o f overlapping sites of left breast in female, estrogen receptor positive (HCC) (Primary Dx) Start: 09-06-2023 End: 09-06-2023 Patient encounter procedure Agusto De Leon DO Work Phone: [facility] Start: 09-06-2023 Telephone encounter Agusto pa DO Work Phone: Hematology/Oncology Comment on above: AVS 09/06/23 Start: 07-26-2023 End: 07-26-[address] Monique Barrera Work Phone: [facility] Work Phone: Start: 07-26-2023 End: 07-26-[address] Monique Barrera Work Phone: [facility] Work Phone: Start: 07-26-2023 End: 07-26-[address] Monique Barrera Work Phone: [facility] Work Phone: Start: 07-26-2023 End: 07-26-2023 ambulatory Nia Jeffrey Facility:[facility] Start: 07-26-2023 End: 07-26-2023 ambulatory Nia Jeffrey Facility:[facility] Start: 07-20-2023 End: 07-20-[address] 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 from neoplasm of breast determined by histopathologic examination (pN1a) (HCC) Start: 02-12-2023 End: 02-12-2023 Patient encounter procedure Agusto De Leon DO Work Phone: [facility] [employer] Start: 12-17-2022 Get Medical Advice Maris méndez ROUTE SPECIALIST.HOT PLATE PRESS OPERATOR Work Phone: [facility] Comment on above: GABAPENTIN REFILL Start: 11-12-2022 End: 11-12-2022 ambulatory Agusto De Leon DO Work Phone: Hematology/Oncology Comment on above: Malignant neoplasm o f overlapping sites of left breast in female, estrogen receptor positive (HCC) (Primary Dx) Start: 11-12-2022 End: 11-12-2022 Patient encounter procedure Agusto De Leon DO Work Phone: [facility] [employer] Start: 11-06-2022 Orders Only Agusto Mott Work Phone: Hematology/Oncology Comment on above: Malignant neoplasm o f overlapping sites of left breast in female, estrogen receptor positive (HCC) (Primary Dx); 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 from neoplasm of breast determined by histopathologic examination (pN1a) (HCC) Start: 10-21-2022 End: 10-21-2022 Patient encounter procedure Maris Alexandre ROUTE SPECIALIST.HOT PLATE PRESS OPERATOR Work Phone: [facility] Comment on above: Malignant neoplasm o f overlapping sites of left breast in female, estrogen receptor positive (HCC) (Primary Dx); 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 from neoplasm of breast determined by histopathologic examination (pN1a) (HCC); Nerve pain; History of bilateral mastectomy Start: 05-12-2022 End: 05-12-2022 ambulatory Agusto De Leon DO Work Phone: Hematology/Oncology Comment on above: Malignant neoplasm o f overlapping sites of left breast in female, estrogen receptor positive (HCC) (Primary Dx); 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 Virgen Work Phone: [facility] Start: 04-21-2022 End: 04-21-2022 Admission to same day surgery center Dr. Monique Barrera Work Phone: [facility] Start: 04-21-2022 End: 04-21-[address] 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 Virgen Work Phone: [facility] Start: 03-18-2022 End: 03-18-[address] Monique Barrera Work Phone: [facility] Work Phone: Start: 03-18-2022 End: 03-18-[address] Monique Barrera Work Phone: [facility] Start: 03-10-2022 End: 03-10-[address] 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 from neoplasm of breast determined by histopathologic examination (pN1a) (HCC); Health education/counseling Start: 09-15-2021 Orders Only Matthew diaz MD Work Phone: Plastic Surgery Comment on above: Post-operative pain (Primary Dx) Start: 04-30-2021 End: 04-30-2021 Admission to [address] Start: 04-30-2021 End: 04-30-2021 ambulatory Pst 2 Pre Surgical Testing Comment on above: Preop testing; Malignant neoplasm of overlapping sites of left breast in female, estrogen receptor positive (HCC); Hypertension, unspecified type; Hyperlipidemia, unspecified hyperlipidemia type Start: 04-30-2021 End: 04-30-2021 Patient encounter status Pst 2 Pre Surgical Te sting Start: 04-29-2021 End: 04-29-2021 Orders Only Matthew Pace MD Work Phone: Plastic Surgery Comment on above: SURGERY INFORMATION Malignant neoplasm o f overlapping sites of left breast in female, estrogen receptor positive (HCC) (Primary Dx) Start: 04-22-2021 Telephone encounter Ivory mir MD Work Phone: [facility] Comment on above: Future Appointment ( Radiation Oncology) Start: 04-22-2021 End: 04-22-2021 Patient encounter procedure Matthew Pace MD Work Phone: Plastic Surgery Comment on above: Malignant neoplasm o f overlapping sites of left breast in female, estrogen receptor positive (HCC) (Primary Dx) Start: 04-21-2021 Telephone encounter Ivory mir MD Work Phone: [facility] Comment on above: Medication Problem Start: 04-18-2021 Telephone encounter Ivory mir MD Work Phone: [facility] Comment on above: Results Start: 04-15-2021 Telephone encounter Ivory mir MD Work Phone: [facility] Comment on above: Patient Question Start: 04-14-2021 Telephone encounter Ivory mir MD Work Phone: [facility] Comment on above: Patient Update Start: 03-26-[address] Sara Barrera Work Phone: [facility] Start: 03-19-2021 End: 03-19-2021 Patient encounter procedure Ivory Ramesh MD Work Phone: [facility] Comment on above: Malignant neoplasm o f overlapping sites of left breast in female, estrogen receptor positive (HCC) (Primary Dx) Start: 03-18-2021 End: 03-18-2021 Patient encounter procedure Matthew Pace MD Work Phone: Plastic Surgery Comment on above: Malignant neoplasm o f overlapping sites of left breast in female, estrogen receptor positive (HCC) Start: 03-14-2021 End: 03-14-2021 Subsequent hospital visit by physician Stereo/Ultrasound Biopsy [facility] RADIO MAMMO REFLECTIONS [facility] Comment on above: Lump of right breast [N63.10] Start: 03-12-2021 End: 03-12-2021 Telephone encounter Ivory Ramesh MD Work Phone: [facility] Comment on above: Future Appointment ( Biopsy ) Start: 03-11-2021 End: 03-11-2021 Telephone encounter Ivory Ramesh MD Work Phone: [facility] Comment on above: Orders; Patient Upda te Start: 03-11-2021 End: 03-11-2021 Patient encounter procedure Ivory Ramesh MD Work Phone: [facility] Comment on above: Malignant neoplasm o f overlapping sites of left breast in female, estrogen receptor positive (HCC) (Primary Dx); Breast mass, right Start: 02-27-2021 End: 02-27-2021 Subsequent hospital visit by physician Daniela Leblanc MD Work Phone: [facility] Comment on above: Malignant neoplasm o f female breast, unspecified estrogen receptor status, unspecified laterality, unspecified site of breast; Family history of breast cancer; Family history of stomach cancer; Family history of melanoma Procedures Date Procedure Procedure Detail Performing Clinician Start: 03-08-2024 Ct abdomen & pelvis w/contrast material Agusto De Leon DO Work Phone: Start: 03-08-2024 Ct thorax w/contrast material Agusto De Leon DO Work Phone: Start: 10-25-2023 History of bilateral mastectomy History of bilateral mastectomy Maris Alexandre APRN.HOT PLATE PRESS OPERATOR Work Phone: Start: 04-21-[address] Monique Barrera Work Phone: Start: 08-04-2021 Adult depression screening assessment Matthew Pace MD Work Phone: Start: 03-14-2021 Bx breast w/device 1st lesion ultrasound guid Ivory Ramesh MD Work Phone: Start: 03-14-2021 Diagnostic mammography computer-aided detcj uni Ivory Ramesh MD Work Phone: Start: 10-19-2007 Lipid 1996 panel - Serum or Plasma Ct Wstr History of bilateral mastectomy History of bilateral mastectomy Maris Alexandre APRN.HOT PLATE PRESS OPERATOR Work Phone: History of bilateral mastectomy History of bilateral mastectomy Maris Alexandre APRN.HOT PLATE PRESS OPERATOR Work Phone: Plan of Treatment Date Care Activity Detail Author Start: 03-08-2027 Diabetes Screening Diabetes Screenrajwinder mckeon [facility] Start: 11-09-2025 DIABETES SCREEN DIABETES SCREEN [facility] Start: 11-09-2025 Diabetes Screening Diabetes Screenin g [facility] Start: 10-19-2025 End: 10-19-2025 Patient encounter procedure 10/19/2025 9:00 AM EDT Office Visit [facility] [address] [place] [id number] Maris Alexandre APRN.HOT PLATE PRESS OPERATOR [address] [place] [address] cbe. [facility] Comment on above: cbe. Start: 04-08-2025 DIABETES SCREEN DIABETES SCREEN [facility] Start: 02-05-2025 Influenza vaccination Influenz a Vaccine (Season Ended) [facility] Start: 10-25-2024 End: 10-25-2024 Patient encounter procedure [facility] Comment on above: cbe. Start: 09-20-2024 End: 09-20-2024 ambulatory 09/20/2024 8:30 AM EDT Visit (SP) Office Hematology/Oncology [address] [place], [place] [phone] Uzma Romero [address] [place], [place] [phone] 6 MO OV/CT 09/13* Hematology/Oncology Comment on above: 6 MO OV/CT 09/13* Start: 09-13-2024 End: 04-14-2025 CT Chest W contrast IV CT CHEST W IVCON Radiology Routine Malignant neoplasm of overlapping sites of left breast in female, estrogen receptor positive (HCC) Lung nodules Malignant neoplasm of female breast, unspecified estrogen receptor status, unspecified laterality, unspecified site of breast (HCC) Expected: 09/13/2024, Expires: 04/14/2025 [facility] Comment on above: Expected: 09/13/2024 , Expires: 04/14/2025 Start: 09-13-2024 End: 09-13-2024 Patient encounter procedure Cat Scan Comment on above: Malignant neoplasm o f overlapping sites of left breast in female, estrogen receptor positive (HCC) [C50.812, Z17.0]; Lung nodules [R91.8]; Malignant neoplasm of female breast, unspecified estrogen receptor status, unspecified laterality, unspecified site of breast (HCC) [C50.919] Start: 03-19-2024 DIABETES SCREEN DIABETES SCREEN [facility] Start: 03-15-2024 End: 03-15-2024 ambulatory 03/15/2024 8:30 AM EDT Visit (SP) Office Hematology/Oncology [address] [place] [phone] Uzma Romero [address] [place] [phone] 6 MO OV/ EARLY LABS CBC CMP / CT 03/08* Hematology/Oncology Comment on above: 6 MO OV/ EARLY LABS CBC CMP / CT 03/08*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 Yes Occupational Therapy: No Matthew Pace MD documented in this encounterMiddletown Hospital10-08-2021 History of Present illness Narrative* Elizabeth Pacheco RT(R) - 03/14/2021 10:30 AM EDT Radiology [...] 14, 2021 11:52 AM documented in this encounterMiddletown Hospital10-06-2021 Miscellaneous Notes* Telephone Encounter - Paula [...] questions Nancy Sinha RN documented in this encounterMiddletown Hospital10-05-2021 Miscellaneous Notes* Telephone Encounter - Ivory Ramesh MD - 03/11/2021 11:41 AM EDT Please notify patient the I reviewed her case with radiology and we are recommending a repeat biopsy of right breast mass. Order placed. Please have her scheduled next available and [facility]. Thank you! Ivory Ramesh MD Notified pt of need for biopsy right breast will have medical lab director call and schedule- may needto adjust follow up with Dr. Ramesh so she has those results Nancy Sinha RN documented in this encounterMiddletown Hospital10-05-2021 History of Present illness Narrative* Ivory Ramesh MD - 03/11/2021 11:04 AM EDT Images from the original note were not included. Ivory Ramesh MD [facility] [address] [place] [address] SUBJECTIVE Chief Complaint: Patient presents with: Consult: new breast cancer diagnosis . YOGI bautista is a 51 year old female here for evaluation of new diagnosis of left breast cancer. Initially seen in [place] by Dr Barr. Patient was experiencing left [...] masses returned invasive ductal carcinoma grade 1, ER/WY+, H2N -. Clinically, multifocal stage IB [T2(2.5cm)N0M0]. [...] 150/56 Pulse 77 Ht 162.6 cm (5' 4) Wt 117.9 kg (260 lb) LMP 05/11/2007 [...] breast masses invasive ductal carcinoma grade 1, ER/WY+, H2N -. Clinically, multifocal stage IB [T2(2.5cm)N0M0]. [...] MD 03/11/2021 11:24 AM documented in this encounterMiddletown Hospital10-05-2021 Nurse Note* Ledy Khan LPN - 03/11/2021 10:19 AM EDT Patient presents for new breast cancer diagnosis. Patient states that in December she had tenderness toher left breast and had not had mammograms since 2017. Imaging revealed multiple areas bilaterally that were biopsied Left breast has a healing wound that is dry and scabbed over Ledy Khan LPN documented in this encounterMiddletown HospitalEvalunemours foundation note* Diagnosis Malignant neoplasm of female breast, unspecified estrogen receptor status, unspecified laterality, unspecified site of breast Family history of breast cancer Family history of malignant neoplasm of breast Family history of stomach cancer Family history of malignant neoplasm of gastrointestinal tract Family history of melanoma Family history of other specified malignant neoplasm [facility] Diagnosis Lump of right breast- Primary Lump or mass in breast documented in this encounter [facility]* Diagnosis Malignant neoplasm of overlapping sites of left breast in female, estrogen receptor positive (HCC)- Primary Breast mass, right Lump or mass in breast documented in this encounter [facility]* Diagnosis Lump of right breast Lump or mass in breast documented [facility] this encounter [facility]* Diagnosis Malignant neoplasm of overlapping sites of left breast in female, estrogen receptor positive (HCC) documented in this encounter [facility] note* Diagnosis Malignant neoplasm of overlapping sites of left breast in female, estrogen receptor positive (HCC) documented in this encounter [facility]* Diagnosis Malignant neoplasm of overlapping sites of left breast in female, estrogen receptor positive (HCC)- Primary documented in this encounter [facility] note* Diagnosis Malignant neoplasm of overlapping sites of left breast in female, estrogen receptor positive (HCC)- Primary documented in this encounter [facility]* Diagnosis Preop testing Preoperative examination, unspecified Malignant neoplasm of overlapping sites of left breast in female, estrogen receptor positive (HCC) Hypertension, unspecified type Hyperlipidemia, unspecified hyperlipidemia type Malignant neoplasm of overlapping sites of left breast in female, estrogen receptor positive (HCC) documented in this encounter [facility]* Diagnosis Malignant neoplasm of overlapping sites of left breast in female, estrogen receptor positive (HCC)- Primary Malignant neoplasm of overlapping sites of left breast in female, estrogen receptor positive (HCC) documented in this encounter [facility]* Diagnosis Post-operative pain- Primary Other acute postoperative pain documented in this encounter [facility] note* Diagnosis Onset Date Resolution Status Left breast cancer with T3 t umor, >5 cm in greatest dimension acute Screening for colorectal cancer acute Pain in thumb joint with movement of left hand chronic [facility] Work Phone: Evaluation note* Diagnosis Onset Date Resolution Status Left breast cancer with T3 t umor, >5 cm in greatest dimension acute Screening for colorectal cancer acute Pain in thumb joint with movement of left hand chronic Screening for intestinal cancer acute [facility] Work Phone: Evaluation note* Diagnosis Malignant neoplasm of overlapping sites of left breast in female, estrogen receptor positive (HCC)- Primary documented in this encounter [facility] note* Diagnosis Malignant neoplasm of overlapping sites of left breast in female, estrogen receptor positive (HCC)- Primary 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 from neoplasm of breast determined by histopathologic examination (pN1a) (HCC) documented in this encounter [facility] note* Diagnosis Nerve pain Neuralgia, neuritis, and radiculitis, unspecified Malignant neoplasm of overlapping sites of left breast in female, estrogen receptor positive (HCC) 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 from neoplasm of breast determined by histopathologic examination (pN1a) (HCC) documented in this encounter [facility]* Diagnosis Onset Date Resolution Status Ventral hernia acute Chronic cough chronic Encounter for routine gynecological examination noneactive [facility] Work Phone: Evaluation note* Diagnosis Malignant neoplasm of overlapping sites of left breast in female, estrogen receptor positive (HCC)- Primary documented in this encounter [facility] note* Diagnosis Onset Date Resolution Status Ventral hernia acute Chronic cough chronic Encounter for routine gynecological examination noneactive Fatigue acute Left breast cancer with T3 t umor, >5 cm in greatest dimension acute Neuritis acute Anxiety chronic Hypertension chronic Hypothyroid chronic [facility] Work Phone: Evaluation note* Diagnosis Nerve pain Neuralgia, neuritis, and radiculitis, unspecified Malignant neoplasm of overlapping sites of left breast in female, estrogen receptor positive (HCC) 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 from neoplasm of breast determined by histopathologic examination (pN1a) (HCC) documented in this encounter [facility] note* Diagnosis Malignant neoplasm of overlapping sites of left breast in female, estrogen receptor positive (HCC)- Primary History of bilateral mastectomy Acquired absence of breast and nipple documented in this encounter [facility] note* Diagnosis Malignant neoplasm of overlapping sites of left breast in female, estrogen receptor positive (HCC)- Primary Breast mass, right Lump or mass in breast Malignant neoplasm of overlapping sites of left breast in female, estrogen receptor positive (HCC)- Primary Malignant neoplasm of overlapping sites of left breast in female, estrogen receptor positive (HCC)- Primary Malignant neoplasm of overlapping sites of left breast in female, estrogen receptor positive (HCC) documented in this encounter [facility] note* Diagnosis Malignant neoplasm of overlapping sites of left breast in female, estrogen receptor positive (HCC)- Primary Breast mass, right Lump or mass in breast Malignant neoplasm of overlapping sites of left breast in female, estrogen receptor positive (HCC)- Primary Malignant neoplasm of overlapping sites of left breast in female, estrogen receptor positive (HCC)- Primary Malignant neoplasm of overlapping sites of left breast in female, estrogen receptor positive (HCC)- Primary Malignant neoplasm of female breast, unspecified estrogen receptor status, unspecified laterality, unspecified site of breast (HCC) Lung nodules Other nonspecific abnormal finding of lung field documented in this encounter [facility]* Diagnosis Malignant neoplasm of overlapping sites of left breast in female, estrogen receptor positive (HCC)- Primary Breast mass, right Lump or mass in breast Malignant neoplasm of overlapping sites of left breast in female, estrogen receptor positive (HCC)- Primary Malignant neoplasm of overlapping sites of left breast in female, estrogen receptor positive (HCC)- Primary Nerve pain Neuralgia, neuritis, and radiculitis, unspecified Malignant neoplasm of overlapping sites of left breast in female, estrogen receptor positive (HCC) 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 from neoplasm of breast determined by histopathologic examination (pN1a) (HCC) documented in this encounter [facility] note* Diagnosis Malignant neoplasm of overlapping sites of left breast in female, estrogen receptor positive (HCC)- Primary Breast mass, right Lump or mass in breast Malignant neoplasm of overlapping sites of left breast in female, estrogen receptor positive (HCC)- Primary Malignant neoplasm of overlapping sites of left breast in female, estrogen receptor positive (HCC)- Primary Lymphedema- Primary Other lymphedema Malignant neoplasm of overlapping sites of left breast in female, estrogen receptor positive (HCC) 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 from neoplasm of breast determined by histopathologic examination (pN1a) (HCC) History of bilateral mastectomy Acquired absence of breast and nipple documented in this encounter [facility] for referral (narrative)* Diagnostic Procedure Only (Routine) Status Reason Specialty Diagnoses / Procedures Referred By Contact Referred To Contact Authorized Auto-Generated Referral BR IMAGING Diagnoses Lump of right breast Procedures US BIOPSY BREAST RT BREAST BIOPSY W/ULTRASOUND GUIDANCE Ivory Ramesh MD [address] [place] [address] Br Imaging [address] [place] [address] [facility] for referral (narrative)* Diagnostic Procedure Only (Routine) Status Reason Specialty Diagnoses / Procedures Referred By Contact Referred To Contact Closed Auto-Generated Referral BR IMAGING Diagnoses Lump of right breast Procedures US BIOPSY BREAST RT BREAST BIOPSY W/ULTRASOUND GUIDANCE Ivory Ramesh MD [address] [facility] [place] [address] Br Imaging [address] [place] [phone] [facility] for visit Narrative* Diagnostic Procedure Only (Routine) Status Reason Specialty Diagnoses / Procedures Referred By Contact Referred To Contact Closed Auto-Generated Referral BR IMAGING Diagnoses Lump of right breast Procedures US BIOPSY BREAST RT BREAST BIOPSY W/ULTRASOUND GUIDANCE Ivory Ramesh MD 1 [facility] 1ST ARR [facility] [place] [address] Br Imaging [address] [phone] [facility] Reason for Referral Specialty Diagnoses / Procedures Referred By Contac t Referred To Contact Lab Diagnoses Malignant neoplasm of female breast, unspecified estrogen receptor status, unspecified laterality, unspecified site of breast Family history of breast cancer Family history of stomach cancer Family history of melanoma Procedures Genetic Sendout: CustomNext Panel [place] [address] Referral ID Status Reason Start Date Expiration Date V isits Requested Visits Authorized [id number] Open Specialty Services Required 02/27/2021 02/27/2022 1 1 Status Reason Specialty Diagnoses / Procedures Referred By Contact Referred To Contact Authorized PCP Requested Referral Plastic Surgery Diagnoses Malignant neoplasm of overlapping sites of left breast in female, estrogen receptor positive (HCC) Procedures CONSULT TO PLASTIC SURGERY NEW PATIENT VISIT LEVEL 5 Ivory Ramesh MD [address] [facility] [place] [address] Status Reason Specialty Diagnoses / Procedures Referred By Contact Referred To Contact Authorized PCP Requested Referral Oncology Diagnoses Malignant neoplasm of overlapping sites of left breast in female, estrogen receptor positive (HCC) Procedures CONSULT TO ONCOLOGY NEW PATIENT VISIT LEVEL [address] MD [address] [facility] 1ST FLR [facility] [place] [address] Status Reason Specialty Diagnoses / Procedures Referred By Contact Referred To Contact Pending Review Auto-Generate d Referral [facility] Diagnoses Malignant neoplasm of overlapping sites of left breast in female, estrogen receptor positive (HCC) Procedures ECG COMPLETE EKG WITH INTERPRETATION Ivory Ramesh MD [address] [facility] 1ST FLR [facility] [place] [address] [facility] [place] [address] [place] [address] Specialty Diagnoses / Procedures Referred By Contac [...] W/CONTRAST Agusto De Leon, DO [address] [place] [address] Ct Imaging Referral ID Status Reason Start Date Expiration Date Visits Requested Visits Authorized [id number] Authorized Auto-Generat ed Referral 04/08/2022 05/07/2022 1 [...] W/CONTRAST Masci Agusto A, DO [address] [place] [address] Ct Imaging Referral ID Status Reason Start Date Expiration Date Visits Requested Visits Authorized [id number] Authorized Auto-Generat ed Referral 04/08/2022 05/07/2022 1 1 Specialty Diagnoses / Procedures Referred By Contac t Referred To Contact [facility] Diagnoses Nerve pain Procedures CONSULT TO LYMPHEDEMA THERAPY OFFICE/OUTPATIENT [facility] [place] 60-74 MINUTES Maris Alexandre, ROUTE SPECIALIST.HOT PLATE PRESS OPERATOR [address] [place] [address] [facility] [address] [place] [address] Referral ID Status Reason Start Date Expiration Date V isits Requested Visits Authorized [id number] Closed Auto-Generate d Referral 10/22/2022 10/21/2023 1 [...] W IVCON DIAGNOSTIC COMPUTED TOMOGRAPHY THORAX W/CONTRAST MascAgusto sawyer, DO [address] [place] [address] Ct Imaging [facility]95 Referral ID Status Reason Start Date Expiration Date Visits Requested Visits Authorized [id number] Authorized Auto-Generat ed Referral 02/12/2023 03/13/2024 1 [...] Masci Agusto A, DO [address] [place] [address] Ct Imaging [facility]95 Referral ID Status Reason Start Date Expiration Date Visits Requested Visits Authorized [id number] Authorized Auto-Generat ed Referral 02/12/2023 03/13/2024 1 1 Specialty Diagnoses / Procedures Referred By Contac t Referred To Contact CT IMAGING Diagnoses Malignant neoplasm of overlapping sites of left breast in female, estrogen receptor positive (HCC) Procedures CT CHEST W IVCON DIAGNOSTIC COMPUTED TOMOGRAPHY THORAX W/CONTRAST Moises Agusto A, DO [address] [place] [address] [place] [address] Referral ID Status Reason Start Date Expiration Date Visits Requested Visits Authorized [id number] Pending Review Auto-Generat ed Referral 09/06/2023 10/05/2024 1 1 Specialty Diagnoses / Procedures Referred By Contac t Referred To Contact CT IMAGING Diagnoses Malignant neoplasm of overlapping sites of left breast in female, estrogen receptor positive (HCC) Procedures CT ABD/PEL W IVCON CT ABD & PELVIS W/CONTRAST BetisilverioAgusto Eloy, DO [address] [place] [address] [place] [address] Referral ID Status Reason Start Date Expiration Date Visits Requested Visits Authorized [id number] Pending Review Auto-Generat ed Referral 09/06/2023 10/05/2024 1 1 Referral ID Status Reason Start Date Expiration Date V isits Requested Visits Authorized [id number] Closed Auto-Generate d Referral 09/06/2023 10/05/2024 1 1 Referral ID Status Reason Start Date Expiration Date V isits Requested Visits Authorized [id number] Closed Auto-Generate d Referral 09/06/2023 10/05/2024 1 1 Specialty Diagnoses / Procedures Referred By Contac t Referred To Contact CT IMAGING Diagnoses Malignant neoplasm of overlapping sites of left breast in female, estrogen receptor positive (HCC) Lung nodules Malignant neoplasm of female breast, unspecified estrogen receptor status, unspecified laterality, unspecified site of breast (HCC) Procedures CT CHEST W IVCON DIAGNOSTIC COMPUTED TOMOGRAPHY THORAX W/CONTRAST Uzma Romero [address] [place] [address] [place] [address] Referral ID Status Reason Start Date Expiration Date Visits Requested Visits Authorized [id number] Authorized Auto-Generat ed Referral 09/13/2024 04/14/2025 1 1 Specialty Diagnoses / Procedures Referred By Contac t Referred To Contact CT IMAGING Diagnoses Malignant neoplasm of overlapping sites of left breast in female, estrogen receptor positive (HCC) Lung nodules Malignant neoplasm of female breast, unspecified estrogen receptor status, unspecified laterality, unspecified site of breast (HCC) Procedures CT ABD/PEL W IVCON CT ABD & PELVIS W/CONTRAST Uzma Romero [address] [place] [address] [place] [address] Referral ID Status Reason Start Date Expiration Date Visits Requested Visits Authorized [id number] Authorized Auto-Generat ed Referral 03/15/2024 04/14/2025 1 1 Advance Directives No Advanced Directives Records FoundDocuments on File Type Date Recorded 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 [employer] Documents on File Type Date Recorded 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 Advance Directive(s) 04/11/2021 7:11 AM Documents on File Type Date Recorded 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 Advance Directive(s) 04/30/2021 10:57 AM Advance Directive(s) 04/11/2021 7:11 AM Documents on File Type Date Recorded 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 Advance Directive(s) 05/05/2021 12:56 PM Advance Directive(s) 04/30/2021 10:57 AM Advance Directive(s) 04/11/2021 7:11 AM Advance Directive Response Recorded Date/ Time Living Will No April 17 10:55am Power of Laborer [employer] No April 17, 2022 10:55am Advance Directive Response Recorded Date/ Time Living Will No April 17 11:55am Power of Laborer [employer] No April 17, 2022 11:55am Medications Administered Section Inactive Administered Medications - up to 3 most recent administrations Medication Order MAR Action Action Date Dose Rate Site lidocaine 10 mg/mL (1 %) injection (XYLOCAINE) OTHER, NEEDED, Starting on Wed03/14/21 at 1128, Until Wed03/14/21 at 1128 Given 03/14/2021 11:28 AM EDT 100 mg O ther Chief Complaint and Reason for Visit Chief Complaint 6 M FU, WRIST INJECT ION Reason for Visit Left breast cancer w ith T3 tumor, >5 cm in greatest dimension Screening for colorectal cancer Pain in thumb joint with movement of left hand Chief Complaint 6 M FU, WRIST INJECT ION Amb Documentation Reason for Visit Left breast cancer w ith T3 tumor, >5 cm in greatest dimension Screening for colorectal cancer Pain in thumb joint with movement of left hand Screening for intestinal cancer Chief Complaint HERNIA / ISSUES 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) Reason for Visit Ventral hernia Chronic cough Encounter for routine gynecological examination Chief Complaint HERNIA / ISSUES 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) 6 M FU Reason for Visit Ventral hernia Chronic cough Encounter for routine gynecological examination Fatigue Left breast cancer with T3 tumor, >5 cm in greatest dimension Neuritis Anxiety Hypertension Hypothyroid Family History No Family History Records Found Relationship Condition Age at Onset Recorded Date/T wm mother Hypertension Unknown Diabetes mellitus Unknown grandmother Diabetes mellitus Unknown Relationship Condition Age at Onset Recorded Date/T wm mother Hypertension Unknown Diabetes mellitus Unknown Polyp of colon Unknown grandmother Diabetes mellitus Unknown Summary Purpose Additional Source Comments Reason for Visit (unrecogniz ed section and content) Reason Comments Radiology CT Specialty Diagnoses / Procedures Referred By Annie sadler Referred To Contact CT IMAGING Diagnoses Malignant neoplasm of overlapping sites of left breast in female, estrogen receptor positive (HCC) Procedures CT ABD/PEL W IVCON CT ABD & PELVIS W/CONTRAST Agusto De Leon, DO [address] [place] [address] [place] [address] Referral ID Status Reason Start Date Expiration Date V isits Requested Visits Authorized [id number] Closed Auto-Generate d Referral 09/06/2023 10/05/2024 1 1 Specialty Diagnoses / Procedures Referred By Annie sadler Referred To Contact Lab Diagnoses Malignant neoplasm of female breast, unspecified estrogen receptor status, unspecified laterality, unspecified site of breast Family history of breast cancer Family history of stomach cancer Family history of melanoma Procedures Genetic Sendout: CustomNext Panel [place] [address] Referral ID Status Reason Start Date Expiration Date V isits Requested Visits Authorized [id number] Open Specialty Services Required 02/27/2021 02/27/2022 1 [...] Ivory Ramesh MD 1 [facility] 1ST [place] [address] Reason Comments Follow Up of biopsy on [...] Agusto De Leon, DO [address] [place] [address] [place] [address] Referral ID Status Reason Start Date Expiration Date V isits Requested Visits Authorized [id number] Closed Auto-Generate d Referral 04/08/2022 05/07/2022 1 1 Referral ID Status Reason Start Date Expiration Date V isits Requested Visits Authorized [id number] Closed Auto-Generate d Referral 02/12/2023 03/13/2024 1 1 Reason Comments AVS 09/06/23 Reason Onset Date Comments Refill Request 09/27/2023 Reason Comments Yearly Exam Reason Onset Date Comments Refill Request 06/29/2024 Reason Comments Yearly Exam CBE. Patient denies any breast concerns. Care Teams (unrecognized sec tion and content) Learning Center Instructor Relationship Specialty Start Date End Date Carissa Barr MD [address] [place], [place] [id number] Congenital Cardiac Surgery 02/26/21 Lesvia Mejía, [place] [address] Genetic Counselor Genetics 02/27/21 Learning Center Instructor Relationship Specialty Start Date End Date Monique Barrera, DO [address] [place], [place] [id number] PCP - General Family Practice 03/11/21 Ivory Ramesh MD [address] 1ST FLR ACC BREAST [facility] [place], [place] [id number] 523- Surgeon Breast Diseases 03/11/21 Matthew Pace MD [address] [place] [address] Surgeon Plastic Surgery 03/18/21 Learning Center Instructor Relationship Specialty Start Date End Date Monique Barrera, DO [address] [place] [address] PCP - General Family Practice 03/11/21 Ivory Ramesh MD [address] [place] [address] 1ST [place] [address] Surgeon Breast Diseases 03/11/21 Matthew Pace MD [address] [place] [address] Surgeon Plastic Surgery 03/18/21 Learning Center Instructor Relationship Specialty Start Date End Date Monique Barrera, DO [address] [place] [address] PCP - General Family Practice 03/11/21 Ivory Ramesh MD [address] [place] [address] 1ST [place] [address] Surgeon Breast Diseases 03/11/21 Matthew Pace MD [address] [place] [address] Surgeon Plastic Surgery 03/18/21 Learning Center Instructor Relationship Specialty Start Date End Date Monique Barrera, DO [address] [place] [address] PCP - General Family Practice 03/11/21 Ivory Ramesh MD [address] [place] [address] [place] [address] Surgeon Breast Diseases 03/11/21 Matthew Pace MD [address] [place] [address] Surgeon Plastic Surgery 03/18/21 Learning Center Instructor Relationship Specialty Start Date End Date Monique Barrera, DO [address] [place] [address] PCP - General Family Practice 03/11/21 Ivory Ramesh MD [address] [place] [address] 1ST [place] [address] Surgeon Breast Diseases 03/11/21 Matthew Pace MD [address] [place] [address] Surgeon Plastic Surgery 03/18/21 Learning Center Instructor Relationship Specialty Start Date End Date Monique Barrera, DO [address] [place] [address] PCP - General Family Practice 03/11/21 Ivory Ramesh MD [address] [place] [address] [place] [address] Surgeon Breast Diseases 03/11/21 Matthew Pace MD [address] [place] [address] Surgeon Plastic Surgery 03/18/21 Learning Center Instructor Relationship Specialty Start Date End Date Monique Barrera, DO [address] [place] [address] PCP - General Family Practice 03/11/21 Ivory Ramesh MD [address] [place] [address] [place] [address] Surgeon Breast Diseases 03/11/21 Matthew Pace MD [address] [place] [address] Surgeon Plastic Surgery 03/18/21 Yannick Dillard MD, [address] [facility] [place] [address] Physician Radiation Oncology 05/12/21 Learning Center Instructor Relationship Specialty Start Date End Date Monique Barrera, DO [address] [place] [address] PCP - General Family Practice 03/11/21 Ivory Ramesh MD [address] [place] [address] [place] [address] Surgeon Breast Diseases 03/11/21 Matthew Pace MD [address] [place] [address] Surgeon Plastic Surgery 03/18/21 Yannick Dillard MD, [address] [facility] [place] [address] Physician Radiation Oncology 05/12/21 Learning Center Instructor Relationship Specialty Start Date End Date Monique Barrera, DO [address] [place] [address] PCP - General Family Medicine 03/11/21 Ivory Ramesh MD [address] [place] [address] [place] [address] Surgeon Breast Diseases 03/11/21 Matthew Pace MD [address] [place] [address] Surgeon Plastic Surgery 03/18/21 Yannick Dillard MD, [address] [facility] [place] [address] Physician Radiation Oncology 05/12/21 Learning Center Instructor Relationship Specialty Start Date End Date Monique aBrrera, DO [address] [place] [address] PCP - General Family Medicine 03/11/21 Ivory Ramesh MD [address] [place] [address] [place] [address] Surgeon Breast Diseases 03/11/21 Matthew Pace MD [address] [facility] 90 [place] [address] Surgeon Plastic Surgery 03/18/21 Yannick Dillard MD, [address] [facility] [place] [address] Physician Radiation Oncology 05/12/21 Learning Center Instructor Relationship Specialty Start Date End Date Monique Barrera, DO [address] [place] [address] PCP - General Family Medicine 03/11/21 Ivory Ramesh MD [address] [place] [address] [place] [address] Surgeon Breast Diseases 03/11/21 Matthew Pace MD [address] [facility] 90 [place] [address] Surgeon Plastic Surgery 03/18/21 Yannick Dillard MD, [address] [place] [address] Physician Radiation Oncology 05/12/21 Learning Center Instructor Relationship Specialty Start Date End Date Monique Barrera, DO [address] [place] [address] PCP - General Family Medicine 03/11/21 Ivory Ramesh MD [address] [place] [address] [place] [address] Surgeon Breast Diseases 03/11/21 Matthew Pace MD [address] [place] [address] Surgeon Plastic Surgery 03/18/21 Yannick Dillard MD, [address] [place] [address] Physician Radiation Oncology 05/12/21 Learning Center Instructor Relationship Specialty Start Date End Date Monique Barrera DO [address] [place] [address] PCP - General Family Medicine 03/11/21 Ivory Ramesh MD [address] [place] [address] 1ST FLR ACC BRE[facility] [place], [place] [id number] Surgeon Breast Diseases 03/11/21 Matthew Pace MD [address] [place] [address] Surgeon Plastic Surgery 03/18/21 Yannick Dillard MD, MD [address] [place] [address] Physician Radiation Oncology 05/12/21 Learning Center Instructor Relationship Specialty Start Date End Date Monique Barrera DO [address] [place] [address] PCP - General Family Medicine 03/11/21 Ivory Ramesh MD [address] [place] [address] [place] [address] Surgeon Breast Diseases 03/11/21 Matthew Pace MD [address] [place] [address] Surgeon Plastic Surgery 03/18/21 Yannick Dillard MD, [address] [place] [address] Physician Radiation Oncology 05/12/21 02/13/23 Learning Center Instructor Relationship Specialty Start Date End Date Monique Barrera DO [address] [place] [address] PCP - General Family Medicine 03/11/21 Ivory Ramesh MD [address] [place] [address] 1ST FLR ACC BREAST CTR [place], [place] [id number] Surgeon Breast Diseases 03/11/21 Matthew Pace MD [address] [facility] 90 [place] [address] Surgeon Plastic Surgery 03/18/21 Yannick Dillard MD, [address] [place] [address] Physician Radiation Oncology 05/12/21 02/13/23 Learning Center Instructor Relationship Specialty Start Date End Date Monique Barrera DO [address] [place] [address] PCP - General Family Medicine 03/11/21 Ivory Ramesh MD [address] [place] [address] [place] [address] Surgeon Breast Diseases 03/11/21 Matthew Pace MD [address] [facility] 90 [place] [address] Surgeon Plastic Surgery 03/18/21 Nia Jeffrey [address] [place] [phone] COMMERCIAL SALES DIRECTOR 02/14/23 Jeffrey Ceron DO [address] [facility] [address] [place] [address] Radiation Oncology 02/14/23 Team Status: Active Member Role Status Dates Dr. Monique Barrera , DO Family Provider Active Dr. Monique Barrera , DO Primary Care Provider Active Team Status: Inactive Member Role Status Dates Dr. Monique Barrera , DO Primary Care Provider, Referr ing Provider Active Dr. Nia Jeffrey MD Attending Provider Active Team Status: Inactive Member Role Status Dates Dr. Monique Barrera , DO Primary Care Pr ovider, Attending Provider, Referring Provider Active Team Status: Inactive Member Role Status Dates Dr. Monique Barrera , DO Primary Care Provider Active Dr. Nia Jeffrey MD Attending Provider, Referr ing Provider Active Learning Center Instructor Relationship Specialty Start Date End Date Monique Barrera DO [address] [place], [place] [address] PCP - General Family Medicine 03/11/21 Ivory Ramesh MD [address] 1ST [place] [address] Surgeon Breast Diseases 03/11/21 Matthew Pace MD [address] [place] [address] Surgeon Plastic Surgery 03/18/21 Nia Jeffrey [address] [place] [phone] Code And Test Clerk 02/14/23 Jeffrey Ceron DO [address] [facility] [address] [place] [address] Radiation Oncology 02/14/23 Learning Center Instructor Relationship Specialty Start Date End Date Monique Barrera DO [address] [place] [address] PCP - General Family Medicine 03/11/21 Ivory Ramesh MD [address] [place] [address] 1ST FLR ACC BRE[facility] [place], [place] [address] Surgeon Breast Diseases 03/11/21 Matthew Pace MD [address] [place], [place] [address] Surgeon Plastic Surgery 03/18/21 Nia Jeffrey [address] [place] [phone] Code And Test Clerk 02/14/23 Jeffrey Ceron DO [address] [facility] [address] [place] [address] Radiation Oncology 02/14/23 Learning Center Instructor Relationship Specialty Start Date End Date Monique Barrera DO [address] [place] [address] PCP - General Family Medicine 03/11/21 Ivory Ramesh MD [address] [place] [address] 1ST FLR [facility] [place], [place] [address] Surgeon Breast Diseases 03/11/21 Matthew Pace MD [address] [place], [place] [address] Surgeon Plastic Surgery 03/18/21 Nia Jeffrey MD [address] [place], [place] [address] Code And Test Clerk 02/14/23 Jeffrey Ceron DO [address] [facility] [address] [place] [address] Radiation Oncology 02/14/23 Learning Center Instructor Relationship Specialty Start Date End Date Monique Barrera DO [address] [place], [place] [address] PCP - General Family Medicine 03/11/21 Ivory Ramesh MD [address] [facility] 1ST FLR ACC BREAST [place], [place] [address] Surgeon Breast Diseases 03/11/21 Matthew Pace MD [address] [address] Surgeon Plastic Surgery 03/18/21 Nia Jeffrey MD [address] [place], [place] [address] Code And Test Clerk 02/14/23 Jeffrey Ceron DO [address] [facility] [address] [place] [address] Radiation Oncology 02/14/23 Learning Center Instructor Relationship Specialty Start Date End Date Monique Barrera DO [address] [place], [place] [address] PCP - General Family Medicine 03/11/21 Ivory Ramesh MD [address] [place] [address] 1ST FLR [facility] BRE[facility] [place], [place] [id number] Surgeon Breast Diseases 03/11/21 Matthew Pace MD [address] [place], [place] [address] Surgeon Plastic Surgery 03/18/21 Nia Jeffrey MD [address] [place], [place] [address] Code And Test Clerk 02/14/23 Jeffrey Ceron DO [address] [facility] 1 [place] [address] Radiation Oncology 02/14/23 Learning Center Instructor Relationship Specialty Start Date End Date Monique Barrera DO [address] [place], [place] [address] PCP - General Family Medicine 03/11/21 Ivory Ramesh MD [address] [place] [address] 1ST [place] [address] Surgeon Breast Diseases 03/11/21 Matthew Pace MD [address] [place] [address] Surgeon Plastic Surgery 03/18/21 Nia Jeffrey MD [address] [place] [address] Code And Test Clerk 02/14/23 Jeffrey Ceron DO [address] [facility] 1 [place] [address] Radiation Oncology 02/14/23 Learning Center Instructor Relationship Specialty Start Date End Date Monique Barrera DO [address] [place] [address] PCP - General Family Medicine 03/11/21 Ivory Ramesh MD [address] [place] [address] 1ST [place] [address] Surgeon Breast Diseases 03/11/21 Matthew Pace MD [address] [place] [address] Surgeon Plastic Surgery 03/18/21 Nia Jeffrey MD [address] [place] [address] Code And Test Clerk 02/14/23 Jeffrey Ceron DO [address] [facility] 1 [place] [address] Radiation Oncology 02/14/23 Learning Center Instructor Relationship Specialty Start Date End Date Monique Barrera DO [address] [place] [address] PCP - General Family Medicine 03/11/21 Ivory Ramesh MD [address] [place] [address] Surgeon Breast Diseases 03/11/21 Matthew Pace MD [address] [place] [address] Surgeon Plastic Surgery 03/18/21 Nia Jeffrey MD [address] [place] [address] Code And Test Clerk 02/14/23 Jeffrey Ceron DO [address] [facility] [address] [place] [address] Radiation Oncology 02/14/23 Learning Center Instructor Relationship Specialty Start Date End Date Monique Barrera DO [address] [place], [place] [id number] PCP - General Family Medicine 03/11/21 Ivory Ramesh MD [address] [facility] [address] [place] [address] Surgeon Breast Diseases 03/11/21 Matthew Pace MD [address] [facility] [address] [place] [address] Surgeon Plastic Surgery 03/18/21 Nia Jeffrey MD [address] [place], [place] [address] Code And Test Clerk 02/14/23 Jeffrey Ceron DO [address] [facility] [address] [place] [address] Radiation Oncology 02/14/23 Source Comments (unrecognize d section and content) In the event this informatio n is protected by the Federal Confidentiality of Alcohol and Drug Abuse Patient Records regulations: The Federal rules restrict any use of the information to criminally investigate or prosecute any alcohol or drug abuse patient.[facility] the event this information is protected by the Federal Confidentiality of Alcohol and Drug Abuse Patient Records regulations: The Federal rules restrict any use of the information to criminally investigate or prosecute any alcohol or drug abuse patient.[facility] HospitalIn the event this information is protected by the Federal Confidentiality of Alcohol and Drug Abuse Patient Records regulations: The Federal rules restrict any use of the information to criminally investigate or prosecute any alcohol or drug abuse patient.[facility] HospitalIn the event this information is protected by the Federal Confidentiality of Alcohol and Drug Abuse Patient Records regulations: The Federal rules restrict any use of the information to criminally investigate or prosecute any alcohol or drug abuse patient.[facility] HospitalIn the event this information is protected by the Federal Confidentiality of Alcohol and Drug Abuse Patient Records regulations: The Federal rules restrict any use of the information to criminally investigate or prosecute any alcohol or drug abuse patient.[facility] HospitalIn the event this information is protected by the Federal Confidentiality of Alcohol and Drug Abuse Patient Records regulations: The Federal rules restrict any use of the information to criminally investigate or prosecute any alcohol or drug abuse patient.[facility] HospitalIn the event this information is protected by the Federal Confidentiality of Alcohol and Drug Abuse Patient Records regulations: The Federal rules restrict any use of the information to criminally investigate or prosecute any alcohol or drug abuse patient.[facility] HospitalIn the event this information is protected by the Federal Confidentiality of Alcohol and Drug Abuse Patient Records regulations: The Federal rules restrict any use of the information to criminally investigate or prosecute any alcohol or drug abuse patient.[facility] HospitalIn the event this information is protected by the Federal Confidentiality of Alcohol and Drug Abuse Patient Records regulations: The Federal rules restrict any use of the information to criminally investigate or prosecute any alcohol or drug abuse patient.[facility] HospitalIn the event this information is protected by the Federal Confidentiality of Alcohol and Drug Abuse Patient Records regulations: The Federal rules restrict any use of the information to criminally investigate or prosecute any alcohol or drug abuse patient.[facility] HospitalIn the event this information is protected by the Federal Confidentiality of Alcohol and Drug Abuse Patient Records regulations: The Federal rules restrict any use of the information to criminally investigate or prosecute any alcohol or drug abuse patient.[facility] HospitalIn the event this information is protected by the Federal Confidentiality of Alcohol and Drug Abuse Patient Records regulations: The Federal rules restrict any use of the information to criminally investigate or prosecute any alcohol or drug abuse patient.[facility] HospitalIn the event this information is protected by the Federal Confidentiality of Alcohol and Drug Abuse Patient Records regulations: The Federal rules restrict any use of the information to criminally investigate or prosecute any alcohol or drug abuse patient.[facility] HospitalIn the event this information is protected by the Federal Confidentiality of Alcohol and Drug Abuse Patient Records regulations: The Federal rules restrict any use of the information to criminally investigate or prosecute any alcohol or drug abuse patient.[facility] HospitalIn the event this information is protected by the Federal Confidentiality of Alcohol and Drug Abuse Patient Records regulations: The Federal rules restrict any use of the information to criminally investigate or prosecute any alcohol or drug abuse patient.[facility] HospitalIn the event this information is protected by the Federal Confidentiality of Alcohol and Drug Abuse Patient Records regulations: The Federal rules restrict any use of the information to criminally investigate or prosecute any alcohol or drug abuse patient.[facility] HospitalIn the event this information is protected by the Federal Confidentiality of Alcohol and Drug Abuse Patient Records regulations: The Federal rules restrict any use of the information to criminally investigate or prosecute any alcohol or drug abuse patient.[facility] HospitalIn the event this information is protected by the Federal Confidentiality of Alcohol and Drug Abuse Patient Records regulations: The Federal rules restrict any use of the information to criminally investigate or prosecute any alcohol or drug abuse patient.[facility] HospitalIn the event this information is protected by the Federal Confidentiality of Alcohol and Drug Abuse Patient Records regulations: The Federal rules restrict any use of the information to criminally investigate or prosecute any alcohol or drug abuse patient.[facility] HospitalIn the event this information is protected by the Federal Confidentiality of Alcohol and Drug Abuse Patient Records regulations: The Federal rules restrict any use of the information to criminally investigate or prosecute any alcohol or drug abuse patient.[facility] HospitalIn the event this information is protected by the Federal Confidentiality of Alcohol and Drug Abuse Patient Records regulations: The Federal rules restrict any use of the information to criminally investigate or prosecute any alcohol or drug abuse patient.[facility] HospitalIn the event this information is protected by the Federal Confidentiality of Alcohol and Drug Abuse Patient Records regulations: The Federal rules restrict any use of the information to criminally investigate or prosecute any alcohol or drug abuse patient.[facility] HospitalIn the event this information is protected by the Federal Confidentiality of Alcohol and Drug Abuse Patient Records regulations: The Federal rules restrict any use of the information to criminally investigate or prosecute any alcohol or drug abuse patient.[facility] HospitalIn the event this information is protected by the Federal Confidentiality of Alcohol and Drug Abuse Patient Records regulations: The Federal rules restrict any use of the information to criminally investigate or prosecute any alcohol or drug abuse patient.[facility] HospitalIn the event this information is protected by the Federal Confidentiality of Alcohol and Drug Abuse Patient Records regulations: The Federal rules restrict any use of the information to criminally investigate or prosecute any alcohol or drug abuse patient.[facility] HospitalIn the event this information is protected by the Federal Confidentiality of Alcohol and Drug Abuse Patient Records regulations: The Federal rules restrict any use of the information to criminally investigate or prosecute any alcohol or drug abuse patient.[facility] HospitalIn the event this information is protected by the Federal Confidentiality of Alcohol and Drug Abuse Patient Records regulations: The Federal rules restrict any use of the information to criminally investigate or prosecute any alcohol or drug abuse patient.[facility] HospitalIn the event this information is protected by the Federal Confidentiality of Alcohol and Drug Abuse Patient Records regulations: The Federal rules restrict any use of the information to criminally investigate or prosecute any alcohol or drug abuse patient.[facility] HospitalIn the event this information is protected by the Federal Confidentiality of Alcohol and Drug Abuse Patient Records regulations: The Federal rules restrict any use of the information to criminally investigate or prosecute any alcohol or drug abuse patient.[facility] HospitalIn the event this information is protected by the Federal Confidentiality of Alcohol and Drug Abuse Patient Records regulations: The Federal rules restrict any use of the information to criminally investigate or prosecute any alcohol or drug abuse patient.[facility] HospitalIn the event this information is protected by the Federal Confidentiality of Alcohol and Drug Abuse Patient Records regulations: The Federal rules restrict any use of the information to criminally investigate or prosecute any alcohol or drug abuse patient.[facility] HospitalIn the event this information is protected by the Federal Confidentiality of Alcohol and Drug Abuse Patient Records regulations: The Federal rules restrict any use of the information to criminally investigate or prosecute any alcohol or drug abuse patient.[facility] HospitalIn the event this information is protected by the Federal Confidentiality of Alcohol and Drug Abuse Patient Records regulations: The Federal rules restrict any use of the information to criminally investigate or prosecute any alcohol or drug abuse patient.[facility] HospitalIn the event this information is protected by the Federal Confidentiality of Alcohol and Drug Abuse Patient Records regulations: The Federal rules restrict any use of the information to criminally investigate or prosecute any alcohol or drug abuse patient.[facility] HospitalIn the event this information is protected by the Federal Confidentiality of Alcohol and Drug Abuse Patient Records regulations: The Federal rules restrict any use of the information to criminally investigate or prosecute any alcohol or drug abuse patient.[facility] HospitalIn the event this information is protected by the Federal Confidentiality of Alcohol and Drug Abuse Patient Records regulations: The Federal rules restrict any use of the information to criminally investigate or prosecute any alcohol or drug abuse patient.[facility] HospitalIn the event this information is protected by the Federal Confidentiality of Alcohol and Drug Abuse Patient Records regulations: The Federal rules restrict any use of the information to criminally investigate or prosecute any alcohol or drug abuse patient.[facility] Goals (unrecognized section and content) Goals may be documented in a n alternate sectionGoals may be documented in an alternate sectionGoals may be documented in an alternate section INFORMATION SOURCE (unrecogn ized section and content) DATE CREATED AUTHOR 03/17/2024 [facility] DATE CREATED AUTHOR AUTHOR'S ORGANIZ ATION 07/14/2024 [facility] DATE CREATED AUTHOR AUTHOR'S ORGANIZ ATION 11/21/2024 [facility] FOR RECORDS PERTAINING TO PATIENTS WHO [...] BE BASED ON THE PRIMARY CLINICAL RECORDS. [employer] [facility]. provides no warranty or guarantee of the accuracy or completeness of information in this document.
[2025-01-08 13:35] LABS: AST(SGOT) 27 U/L (<=31); Alanine Aminotransfer ALT/SGPT 25 U/L (<=34); Albumin, Serum 4.0 g/dL (3.5-5.0); Alkaline Phosphatase 69 U/L (35-104); Anion Gap 12 (5-15); BUN 16 mg/dL (4-19); BUN/Creat Ratio 22.2 RATIO (10-20); Calcium,Total 9.4 mg/dL (7.6-11.0); Carbon Dioxide 25.3 mmol/L (21.0-32.0); Chloride 105 mmol/L (98-108); Cholesterol 207 mg/dL (<=200); Globulin 3.2 g/dL (2.2-4.2); Glucose 105 mg/dL (70-99); Low Density Lipoprotein Calc. 133 mg/dL; Potassium 4.0 mmol/L (3.3-5.1); Triglycerides 113 mg/dL; Very Low Density Lipoprotein 23 mg/dL (5-40); cholesterol:hdl ratio screen 4.01
== END | disposition home or self-care (01) ==
LOC: BIMLAB 08:01
PROVIDERS: PCP Family Medicine; Referring Provider Family Medicine; Visit Provider Family Medicine
DX: I10 Essential (primary) hypertension (principal); E03.9 Hypothyroidism, unspecified; R53.82 Chronic fatigue, unspecified
CPT/HCPCS: 36415; 80053; 80061; 83036; 84443; 86900; 86901